=== PATIENT | female | born 1960 | race Caucasian/White ===

== ENCOUNTER 2019-03-15 11:54 | Outpatient (CLI) | payer MEDICARE, SELFPAY ==
--- NOTE | 2019-03-18 13:08 | WPDSIXMINUTE ---
Six Minute Walk Six Minute Walk: The patients O2 sats started at 95% on RA and dropped as low as 90% on RA Total walk distance 274.32 meters conclusion: This patient would not benefit from home oxygen therapy
--- NOTE | 2019-03-21 21:06 | WPDSIXMINUTE ---
Six Minute Walk DATE OF SERVICE: 03/15/2019 REQUESTING PHYSICIAN: Maria Luisa Underwood MD REASON FOR TESTING: Exertional dyspnea SIX MINUTE WALK this test was conducted per ATS guidelines. Initial saturation was 95%, pulse 80. The patient walked
== END 2019-03-15 11:55 | disposition home or self-care (01) ==
PROVIDERS: PCP Family Medicine; Visit Provider Internal Medicine Critical Care Medicine
DX: J44.9 Chronic obstructive pulmonary disease, unspecified (principal)
CPT/HCPCS: 94618

== ENCOUNTER 2020-07-02 09:30 | Outpatient (RCR) | payer MEDICARE, MEDICAID, SELFPAY ==
--- NOTE | 2020-07-02 12:00 | PCCPR ---
PT COMPLETED 20 OF 20 PRE OP LVRS SESSIONS. REPORT SENT TO DR. CH. COORDINATOR HAS SET UP PRE OP/POST REHAB TESTING. PT TO CONTINUE WITH PHASE 3 PULMONARY REHAB UNTIL SURGERY DATE.
== END 2020-07-02 12:21 | disposition home or self-care (01) ==
PROVIDERS: PCP Nurse Practitioner Family; Visit Provider Thoracic Surgery (Cardiothoracic Vascular Surgery)
DX: J44.9 Chronic obstructive pulmonary disease, unspecified (principal)
CPT/HCPCS: G0302

== ENCOUNTER 2020-07-26 07:16 | Outpatient (CLI) | payer MEDICARE, SELFPAY ==
[2020-07-26 10:22] LABS: SARS-CoV-2 RNA PCR Negative (Negative)
== END 2020-07-26 07:17 | disposition home or self-care (01) ==
LOC: CHSLAB 07:18
PROVIDERS: PCP Nurse Practitioner Family; Visit Provider Family Medicine
DX: Z01.818 Encounter for other preprocedural examination (principal); Z20.822 Contact with and (suspected) exposure to COVID-19
CPT/HCPCS: C9803; U0003; U0005

== ENCOUNTER 2020-07-30 09:30 | Outpatient (RCR) | payer SELFPAY | END 2020-08-06 10:52 | disposition home or self-care (01) | LOC: CHSCPRIII 09:30 | PROVIDERS: PCP Family Medicine; Visit Provider Thoracic Surgery (Cardiothoracic Vascular Surgery) | DX: J44.9 Chronic obstructive pulmonary disease, unspecified (principal) | CPT/HCPCS: 99199 ==

== ENCOUNTER 2021-01-17 08:24 | Outpatient (CLI) | payer MEDICARE, SELFPAY ==
--- NOTE | ~2021-01-17 | MM_ITS ---
EXAMINATION: MM screening chris BI w amanuel HISTORY: Screening mammogram TECHNIQUE: Craniocaudal and mediolateral oblique 3-D tomosynthesis images were obtained and synthetic 2-D images were generated. CAD analysis was submitted and interpreted. COMPARISON: 03/16/2019, 08/27/2014, 02/06/2013 bilateral screening mammogram examinations BREAST PARENCHYMAL COMPOSITION: The breasts are almost entirely fatty. FINDINGS: There is no evidence of suspicious mass, calcification, or architectural distortion to sugg est malignancy in either breast. There has been no suspicious interval change. IMPRESSION: 1. No mammographic evidence of malignancy. 2. Recommend routine screening mammography in one year. BI-RADS Category 1: Negative Reviewed, dictated and finalized at location A. 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
== END 2021-01-17 08:25 | disposition home or self-care (01) ==
LOC: ANHIMG 08:26
PROVIDERS: PCP Nurse Practitioner Family; Visit Provider Nurse Practitioner Family
DX: Z12.31 Encounter for screening mammogram for malignant neoplasm of breast (principal)
CPT/HCPCS: 77063; 77067

== ENCOUNTER 2021-03-25 09:45 | Outpatient (CLI) | payer MEDICARE, SELFPAY ==
--- NOTE | ~2021-03-25 | CT_ITS ---
EXAMINATION: CT lung screening EXAM DATE: 03/25/2021 10:04 INDICATION: Z87.891 - Personal history of nicotine dependence. Chest pain, shortness of breath, cough . TECHNIQUE: Spiral low dose CT of the chest without contrast. Axial, coronal and sagittal images were reviewed. The dose-length product (DLP) for this examination was 128.67 mGy-cm. The exposure was t ailored according to patient size (auto mA exposure control), and iterative reconstruction (ASIR) was used as additional dose reduction technique. Comparison is made to prior examination from 07/19/2018. FINDINGS: There is moderate emphysema and hyperinflation. Mild bronchiectasis. There is a 4 mm left lower lobe perihilar pulmonary nodule which was not present in 2019. No other nodules identified. Tr acheobronchial tree is patent. There is no mediastinal, hilar or axillary lymphadenopathy. There are no pleural or pericardial effusions. There is no pneumothorax. Heart normal in size. There is mild coronary arterial calcification, arterial sclerosis. Upper abdomen is unremarkable. There is mild thoracic spondylosis without osteoblastic or osteolytic lesions identified. IMPRESSION: Lung-RADS category 3, probably benign (1-2% chance of malignancy); recommend followup non contrast chest CT or LDCT in 6 months. Reviewed, dictated and finalized at location . ITY PROCESS LEAD IMPRESSION: Lung-RADS category 3, probably benign (1-2% chance of malignancy); recommend followup noncontrast chest CT or LDCT in 6 months.
== END 2021-03-25 09:46 | disposition home or self-care (01) ==
PROVIDERS: PCP Nurse Practitioner Family; Visit Provider Nurse Practitioner Family
DX: Z12.2 Encounter for screening for malignant neoplasm of respiratory organs (principal); Z87.891 Personal history of nicotine dependence
CPT/HCPCS: 71271

== ENCOUNTER 2021-09-22 09:39 | Outpatient (CLI) | payer MEDICARE, SELFPAY ==
--- NOTE | ~2021-09-22 | CT_ITS ---
EXAMINATION:CT diagnostic chest wo con DATE: 09/22/2021 10:04 INDICATION: Solitary pulmonary nodule. TECHNIQUE: Computed tomography (CT) of the chest was performed without intravenous contrast. Automate d exposure control and iterative reconstruction technique were employed. The dose-length product (DLP ) was 100.40 mGy-cm. COMPARISON: Chest CT 03/25/2021 FINDINGS: There is severe emphysema. There is mild bronchiectasis in the inferior lungs. There is a 2 mm nodule in left lower lobe with interval improvement. There is mild atelectasis bilaterally. No pl eural effusion. The heart size is normal. No pericardial effusion. There are coronary artery calcific ations. There is mild thoracic spondylosis. IMPRESSION: 1. Lung-RADS category 2: Benign appearance or behavior. Continue annual screening with noncontrast lo w-dose chest CT in 12 months. Reviewed, dictated and finalized at location A. IMPRESSION: 1. Lung-RADS category 2: Benign appearance or behavior. Continue annual screeni ng with noncontrast low-dose chest CT in 12 months.
== END 2021-09-22 09:40 | disposition home or self-care (01) ==
PROVIDERS: PCP Nurse Practitioner Family; Visit Provider Nurse Practitioner Family
DX: R91.1 Solitary pulmonary nodule (principal)
CPT/HCPCS: 71250

== ENCOUNTER 2022-07-31 14:40 | Emergency (ER) | payer MEDICARE, SELFPAY ==
[2022-07-31] VITALS (12 sets, daily range): BP systolic 105–125; BP diastolic 58–96; PULSE 82–116; RESP 16–23; TEMP 37.3–38.3; O2SAT 92–97
--- NOTE | ~2022-07-31 | XR_ITS ---
XR chest 1V portable DATE: 07/31/2022 15:19 INDICATION: Cough, shortness of breath, fever, right-sided chest pain TECHNIQUE: Portable AP chest, single view, on 08/10/2022 at 1516 hours COMPARISON: 07/19/2018 CT chest FINDINGS: Chronic large bulla in the anterior basilar left lower lobe. Moderate bilateral hyperinflat ion consistent with obstructive airways disease. No pulmonary infiltrate or consolidation, pleural effusion or pulmonary vascular congestion or pneumo thorax. Normal heart size. No hilar or mediastinal enlargement. Osteopenia. IMPRESSION: Emphysema Reviewed, dictated and finalized at location [] IMPRESSION: Emphysema
[2022-07-31 15:17] LABS: Basophils Absolute Auto 0.1 K/mm3 (0.0-0.1); Basophils Percent Auto 0.3 % (0.2-1.2); Eosinophils Absolute Auto 0.1 K/mm3 (0-0.3); Eosinophils Percent Auto 0.6 % (0-4.4); Hematocrit 45.6 % (37.0-47.0); Hemoglobin 14.9 g/dL (12.0-15.0); Immature Granulocyte Percent A 0.6 % (0-0.5); Lymphocytes Absolute Auto 1.05 K/mm3 (0.9-3.2); Lymphocytes Percent Auto 6.7 % (18.3-44.2); Mean Corpuscular HGB Conc 32.7 g/dl (32-36); Mean Corpuscular Hemoglobin 29.2 pg (26-34); Mean Corpuscular Volume 89.4 fl (80-100); Monocytes Absolute Auto 1.4 K/mm3 (0.1-0.6); Monocytes Percent Auto 8.6 % (2.6-8.5); Neutrophils Absolute Auto 13.1 K/mm3 (1.3-6.7); Neutrophils Percent Auto 83.2 % (45.5-73.1); Platelet Count Result 298 k/mm3 (150-375); Red Cell Distribution Width 13.5 % (11.5-14.5); White Blood Count 15.7 K/mm3 (4.5-10.0)
[2022-07-31] MEDS: IPRATROPIUM BR 0.02% INH SOLN 0.5 MG/2.5 ML VIAL INHALATION (15:24)
[2022-07-31] MEDS: ALBUTEROL SULFATE NEB 2.5 MG/3 ML INH INHALATION (15:24)
[2022-07-31 15:27] LABS: Alanine Aminotransferase 13 U/L (6-35); Albumin Level 4.6 g/dL (3.5-5.1); Alkaline Phosphatase 82 U/L (38-126); Anion Gap 7 mmol/L (8-16); Aspartate Amino Transferase 26 U/L (14-36); Bilirubin,Total 0.6 mg/dL (0.2-1.3); Blood Urea Nitrogen 26 mg/dL (7-17); Carbon Dioxide 26 mmol/L (22-30); Chloride 101 mmol/L (98-107); Estimated CRCL calculation 95 ml/min; Estimated Glomerular Filt Rate > 60; Glucose 102 mg/dL (65-110); Potassium 3.8 mmol/L (3.4-5.0); Sodium 134 mmol/L (137-145)
[2022-07-31 15:51] LABS: SARS-CoV-2 RNA PCR Negative (Negative)
--- NOTE | 2022-07-31 15:54 | ECG_ITS ---
Measurements Intervals [place] Rate: 114 P: 91 MS: 145 QRS: 43 QRSD: 82 T: 61 QT: 301 QTc: 415 Interpretive Statements SINUS TACHYCARDIA LOW QRS VOLTAGE IN PRECORDIAL LEADS [QRS DEFLECTION < 1.0 mV IN CHEST LEADS] POOR R-WAVE PROGRESSION ABNORMAL RHYTHM ECG COMPARED TO ECG 07/19/2018 05:10:03 SINUS TACHYCARDIA NOW PRESENT Electronically Signed On 08-01-2022 8:55:33 CDT by Katerin Felix M.D.
--- NOTE | 2022-07-31 16:00 | ED.SOB ---
HPI - SOB/Dyspnea General Chief Complaint: Shortness of Breath/Dyspnea Stated Complaint: fever, int. chest pain Time Seen by Provider: 07/31/22 14:45 History of Present Illness HPI Narrative: Patient is a 62-year-old female who presents ER with reports of shortness of breath. Increased shortness of breath over the last 2 days. Associated with fever and some chest pain with breathing. No known sick contacts. Related Data Home Medications Medication Instructions Recorded Confirmed amlodipine 10 mg tablet 10 mg PO DAILY 01/04/19 02/05/22 fluticasone propionate 50 1 spray intranasal DAILY 01/04/19 02/05/22 mcg/actuation nasal spray,suspension (Flonase Allergy Relief) Allergies Allergy/AdvReac Type Severity Reaction Status Date / Time cephalexin AdvReac Intermediate Cough Verified 07/31/22 15:05 Review of Systems Review of Systems: All systems reviewed & are unremarkable except as noted in HPI and below Constitutional: Constitutional: Denies chills, Reports fatigue and Reports fever(s) ENT: Denies nasal congestion and Denies sore throat Cardiovascular: Cardiovascular: Reports chest pain, Denies rapid heart rate and Denies radiating jaw, neck or arm pain Respiratory: Respiratory: Reports cough and Reports dyspnea Gastrointestinal: Gastrointestinal: Denies abdominal pain, Denies nausea and Denies vomiting PMFSH Past Medical History Medical History Bronchiectasis without complication Chronic obstructive pulmonary disease ANGEL (obstructive sleep apnea) Family History Family History Mother Hypertension Other Diabetes mellitus Social History Social History Smoking packs per day: 0.5 Smoking cigarettes per day: 10.0 Years smoked: 40 Smoking pack-years: 20.00 Smoking status: Former smoker Second hand tobacco smoke exposure: Yes Smoking end date: 02/22/15 Additional smoking assessment comments: started smoking at age 14 Alcohol intake: never Lack of Transportation: No Lack of Food: Sometimes True Current Housing: I Have Housing Concerned About Future Housing: No Difficulty Paying Gas/Electric Bills: No Difficulty Paying for Meds: Decline to Answer Currently Unemployed: No Education: High School Diploma/GED Difficulty w/ Childcare or Family Care: No Exam Narrative: GENERAL: Well-appearing, well-nourished, and in no acute distress. HEAD: Normocephalic, atraumatic. EYES: PERRL and EOMI. ENT: Mucous membranes moist. CHEST: Clear to auscultation. No respiratory distress. HEART: Tachycardic and regular. Normal peripheral pulses. ABDOMEN: Soft, nontender, nondistended. EXTREMITIES: Normal range of motion. No edema. SKIN: Warm, dry, no rash. NEURO: Alert and oriented x3. PSYCH: Normal mood and affect. Course Course Emergency Course: Patient informed of results. No hypoxia while walking. Discharged with antibiotics to cover for pneumonia and UTI. Vital Signs Vital signs: Vital Signs Temperature 99.2 F 07/31/22 14:41 Pulse Rate 115 H 07/31/22 14:41 Respiratory Rate 23 H 07/31/22 14:41 Blood Pressure 115/96 H 07/31/22 14:41 Pulse Oximetry 93 07/31/22 14:41 Oxygen Delivery Room Air 07/31/22 14:41 Temperature 100.9 F H 07/31/22 14:54 Pulse Rate 82 07/31/22 17:36 Respiratory Rate 22 H 07/31/22 17:36 Blood Pressure 125/80 07/31/22 17:36 Pulse Oximetry 94 07/31/22 17:36 Oxygen Delivery Room Air 07/31/22 14:51 MDM - SOB/Dyspnea Lab Data 07/31/22 15:07 07/31/22 15:07 Labs: Lab Results 07/31/22 07/31/22 07/31/22 Range/Units 15:07 15:08 15:10 WBC 15.7 H (4.5-10.0) K/mm3 RBC 5.10 (4.2-5.4) M/mm3 Hgb 14.9 (12.0-15.0) g/dL Hct 45.6 (37.0-47.0) % MCV 89.4 (80-100) fl MCH 29.2 (26-34) pg MCHC
--- NOTE | 2022-07-31 16:12 | PC.NURSE ---
Pt ambulated approx 50 ft to bathroom and back to pt room, pt maintained spo2 of 92-93%, pt with labored breathing during and after ambulation
[2022-07-31 16:20] LABS: Appearance Urine Cloudy (Clear); Bacteria Urine None Seen /hpf; Bilirubin Urine Negative (Negative); Blood Urine 3+ (Negative); Color Urine Yellow (Yellow); Glucose Urine UA Negative (Negative); Ketones Urine 2+ mg/dL (Negative); Leukocyte Esterase Ur 2+ LEU/UL (Negative); Nitrate Urine Negative (Negative); Non Pathogenic Casts 0-2; Protein Urine 1+ mg/dL (Negative); RBC Urine 21-50 /hpf (0-2); Specific Grav Ur 1.016 (1.001-1.035); Squamous Epithelial Cell Urine Few /hpf (Few); Urobilinogen Urine 0.2 mg/dL (<2.0); WBC Urine >100 /hpf; pH Urine 5.5 (5.0-9.0)
[2022-07-31 16:30] LABS: Add Urine Microscopic? YES
== END 2022-07-31 17:42 | disposition home or self-care (01) ==
PROVIDERS: Emergency Provider Emergency Medicine; PCP Nurse Practitioner Family
DX: J18.9 Pneumonia, unspecified organism (principal); R00.0 Tachycardia, unspecified; Z20.822 Contact with and (suspected) exposure to COVID-19; J44.9 Chronic obstructive pulmonary disease, unspecified; G47.30 Sleep apnea, unspecified
CPT/HCPCS: 36415; 71045; 80053; 81001; 83605; 85025; 87040; 87077; 87086; 87186; 87635; 93005; 94640; 99283

== ENCOUNTER 2022-09-24 09:56 | Outpatient (CLI) | payer MEDICARE, SELFPAY ==
--- NOTE | ~2022-09-24 | CT_ITS ---
CT Scan of the Chest without Contrast: Clinical Indication: Lung cancer screening, personal history of nicotine dependence Technique: Contiguous sections were acquired throughout the chest without intravenous contrast. Dose reduction technique was used on this scan by utilizing automated exposure control and iterative recon struction technique. The dose-length product (DLP) was 129.99 mGy-cm. COMPARISON: 09/22/2021, 03/25/2021 Findings: There is no evidence of any significant mediastinal, hilar or axillary lymphadenopathy. The mediastin al soft tissues appear normal. There is no evidence of pleural or pericardial effusion. Several small bibasilar pulmonary nodules are noted, similar to prior exam. Moderate to severe emphys kita present. Images through the upper abdomen reveal no abnormalities. Impression: Lung RADS 2: Benign appearance. 12 month follow-up screening CT advised. Moderate to severe emphysema. Reviewed, dictated and finalized at [facility]. Impression: Lung RADS 2: Benign appearance. 12 month follow-up screening CT advised. Moderate to severe emphysema.
== END 2022-09-24 09:57 | disposition home or self-care (01) ==
PROVIDERS: PCP Nurse Practitioner Family; Visit Provider Nurse Practitioner Family
DX: Z12.2 Encounter for screening for malignant neoplasm of respiratory organs (principal); Z87.891 Personal history of nicotine dependence; J43.9 Emphysema, unspecified
CPT/HCPCS: 71271

== ENCOUNTER 2023-01-06 12:39 | Emergency (ER) | payer MEDICARE, SELFPAY ==
[2023-01-06] VITALS (8 sets, daily range): BP systolic 98–165; BP diastolic 48–103; PULSE 76–106; RESP 17–28; TEMP 36.5; O2SAT 96–100
--- NOTE | ~2023-01-06 | XR_ITS ---
XR chest 2V DATE: 01/06/2023 14:05 INDICATION: Dyspnea. COPD. TECHNIQUE: PA and lateral views COMPARISON: 8 5 04/[address]22 CT lung screening 08/10/2022 portable AP chest FINDINGS: Bilateral pulmonary hyperinflation and relative flattening the diaphragm, consistent with C OPD. No pulmonary infiltrate or consolidation, pleural effusion or pulmonary vascular congestion or pneumo thorax is detected. Normal heart size. No hilar or mediastinal enlargement. Diffuse osteopenia. IMPRESSION: COPD Reviewed, dictated and finalized at location B. 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
--- NOTE | 2023-01-06 12:44 | ECG_ITS ---
Measurements Intervals [place] Rate: 54 P: 85 CT: 165 QRS: 66 QRSD: 82 T: 75 QT: 335 QTc: 318 Interpretive Statements SINUS BRADYCARDIA BORDERLINE T WAVE ABNORMALITY- HIGH LATERAL LEADS BASELINE ARTIFACT- I, II, III, AVL, AVF, V4-V6 BORDERLINE ECG COMPARED TO ECG 07/31/2022 14:48:10 SINUS BRADYCARDIA NOW PRESENT Electronically Signed On 01-06-2023 13:17:25 VISCOSE DEPARTMENT WORKER by Raoul Szymanski D.O.
[2023-01-06 13:05] LABS: Basophils Absolute Auto 0.1 K/mm3 (0.0-0.1); Basophils Percent Auto 0.6 % (0.2-1.2); Eosinophils Absolute Auto 0.3 K/mm3 (0-0.3); Eosinophils Percent Auto 3.9 % (0-4.4); Hematocrit 45.8 % (37.0-47.0); Hemoglobin 14.5 g/dL (12.0-15.0); Immature Granulocyte Absolute 0.07 K/mm3 (0.00-0.031); Immature Granulocyte Percent A 0.8 % (0-0.5); Lymphocytes Absolute Auto 1.56 K/mm3 (0.9-3.2); Lymphocytes Percent Auto 17.9 % (18.3-44.2); Mean Corpuscular HGB Conc 31.7 g/dl (32-36); Mean Corpuscular Hemoglobin 28.9 pg (26-34); Mean Corpuscular Volume 91.4 fl (80-100); Mean Platelet Volume 10.7 fl (7.4-10.4); Monocytes Absolute Auto 0.6 K/mm3 (0.1-0.6); Monocytes Percent Auto 7.1 % (2.6-8.5); Neutrophils Absolute Auto 6.1 K/mm3 (1.3-6.7); Neutrophils Percent Auto 69.7 % (45.5-73.1); Nucleated Red Blood Cells Perc 0.3 % (0.0-0.2); Platelet Count Result 330 k/mm3 (150-375); Red Blood Count 5.01 M/mm3 (4.2-5.4); Red Cell Distribution Width 13.6 % (11.5-14.5); White Blood Count 8.7 K/mm3 (4.5-10.0)
[2023-01-06 13:17] LABS: Alanine Aminotransferase 11 U/L (6-35); Albumin Level 4.4 g/dL (3.5-5.1); Alkaline Phosphatase 86 U/L (38-126); Anion Gap 11 mmol/L (8-16); Aspartate Amino Transferase 21 U/L (14-36); Bilirubin,Total 0.5 mg/dL (0.2-1.3); Blood Urea Nitrogen 26 mg/dL (7-17); Calcium 9.1 mg/dL (8.4-10.2); Carbon Dioxide 28 mmol/L (22-30); Chloride 102 mmol/L (98-107); Estimated CRCL calculation 81 ml/min; Estimated Glomerular Filt Rate > 60; Glucose 103 mg/dL (65-110); Potassium 3.9 mmol/L (3.4-5.0); Sodium 141 mmol/L (137-145)
[2023-01-06 13:27] LABS: Troponin I < 0.012 ng/mL (0.000-0.034)
[2023-01-06 13:42] LABS: Influenza A QL RT-PCR Negative (Negative); Influenza B QL RT-PCR Negative (Negative); SARS-CoV-2 RNA PCR Negative (Negative)
--- NOTE | 2023-01-06 15:44 | ED.SOB ---
HPI - SOB/Dyspnea General Chief Complaint: Shortness of Breath/Dyspnea Stated Complaint: sob Time Seen by Provider: 01/06/23 15:31 History of Present Illness HPI Narrative: Patient is a 8-year-old female who presents to the emergency department at that afternoon complaining of shortness of breath. Patient does have a history of COPD and does use oxygen at home 2 L around the clock. Patient states that she recently finished a Z-Manuel due to a sinus infection. She denies any hypoxia and has not needed to increase her home oxygen from 2 L. Patient denies any chest pain, nausea, vomiting, abdominal pain, dysuria, hematuria, constipation, diarrhea, melena, hematochezia, fevers or chills. He also denies any headaches, dizziness, lightheadedness, blurry visions, dizziness, focal weakness, numbness and or tingling. There are no other modifying, alleviating, or precipitating factors at this time. Related Data Home Medications Medication Instructions Recorded Confirmed amlodipine 10 mg tablet 10 mg PO DAILY 01/04/19 08/10/22 fluticasone propionate 50 1 spray intranasal DAILY 01/04/19 08/10/22 mcg/actuation nasal spray,suspension (Flonase Allergy Relief) Allergies Allergy/AdvReac Type Severity Reaction Status Date / Time cephalexin AdvReac Intermediate Cough Verified 01/06/23 15:44 Review of Systems Review of Systems: All systems are reviewed and are negative unless stated otherwise in the HPI. [facility] Past Medical History Medical History Bronchiectasis without complication Chronic obstructive pulmonary disease ANGEL (obstructive sleep apnea) Family History Family History Mother Hypertension Other Diabetes mellitus Social History Social History Smoking packs per day: 0.5 Smoking cigarettes per day: 10.0 Years smoked: 40 Smoking pack-years: 20.00 Smoking status: Former smoker Second hand tobacco smoke exposure: Yes Smoking end date: 02/22/15 Additional smoking assessment comments: started smoking at age 14 Alcohol intake: never Lack of Transportation: No Lack of Food: Sometimes True Current Housing: I Have Housing Concerned About Future Housing: No Difficulty Paying Gas/Electric Bills: No Difficulty Paying for Meds: Decline to Answer Currently Unemployed: No Education: High School Diploma/GED Difficulty w/ Childcare or Family Care: No Exam Narrative: General: Alert, awake, afebrile, in no acute distress. HEENT: PERRL, no rhinorrhea, no post nasal drip, oropharynx clear. Neck: Trachea midline, no JVD, no lymphadenopathy. Cardiovascular: Regular rate and rhythm, no murmurs, rubs or gallops, no peripheral edema. Respiratory: Bilateral wheezing worse on the right lung prado, no tachypnea, no rhonchi, no rubs, no respiratory distress. Abdomen: Soft, nontender, nondistended, no rebound, no guarding, no peritoneal signs. Musculoskeletal: No joint swelling or deformity, normal muscle tone. Skin: No rashes or petechia, no signs of infection. Psychiatric: Alert and oriented, normal behavior and judgment for situation. Neurological: Alert and oriented to person, place, and time. Follows all commands. No focal deficits, speech is clear and fluent. Course Vital Signs Vital signs: Vital Signs Temperature 97.7 F 01/06/23 12:41 Pulse Rate 99 01/06/23 12:41 Respiratory Rate 22 H 01/06/23 12:41 Blood Pressure 98/48 L 01/06/23 12:41 Pulse Oximetry 96 01/06/23 12:41 Oxygen Delivery Nasal Cannula 01/06/23 12:41 Oxygen Flow Rate 2 01/06/23 12:41 Temperature 97.7 F 01/06/23 12:41 Pulse Rate 82 01/06/23 16:20 Respiratory Rate 17 01/06/23 16:20 Blood Pressure 154/100 H 01/06/23 16:20 Pulse Oximetry 97 01/06/23 16:20 Oxygen Delivery Nasal Cannula 01/06/23 15:42 Oxygen Fl
[2023-01-06] MEDS: methylPREDNISolone SOD SUCC 125 MG VIAL IV PUSH (16:47)
[2023-01-06] MEDS: IPRATROPIUM BR 0.02% INH SOLN 0.5 MG/2.5 ML VIAL 1 MG INHALATION (16:52)
[2023-01-06] MEDS: ALBUTEROL SULFATE NEB 2.5 MG/3 ML INH 10 MG INHALATION (16:52)
== END 2023-01-06 18:35 | disposition home or self-care (01) ==
LOC: ANHED 15:58
PROVIDERS: Emergency Medicine; Emergency Provider Emergency Medicine; PCP Family Medicine
DX: J44.9 Chronic obstructive pulmonary disease, unspecified (principal); Z87.891 Personal history of nicotine dependence; G47.30 Sleep apnea, unspecified
CPT/HCPCS: 36415; 71046; 80053; 84484; 85025; 87636; 93005; 94640; 96374; 99284; J2930

== ENCOUNTER 2024-03-13 13:54 | Outpatient (CLI) | payer MEDICARE, SELFPAY ==
--- NOTE | ~2024-03-13 | CT_ITS ---
EXAMINATION: CT lung screening DATE: 03/13/2024 14:16 INDICATION: Z87.891 - Personal history of nicotine dependence TECHNIQUE: Computed tomography (CT) of the chest was performed without intravenous contrast. Addition al 3D reconstructions utilizing coronal maximum intensity projection (MIP) were performed. Automated exposure control and iterative reconstruction technique were employed. The dose-length product was 11 4.75 mGy-cm. COMPARISON: 09/24/2022 FINDINGS: Moderate emphysema. Curvilinear band of chronic discoid atelectasis/scarring in the anterobasilar seg ment of the left lower lobe. No significant interval change in a few small solid and some solid nodul es in the bilateral lower lobes the largest measuring 5 mm in the left lower lobe. No new or enlargin g pulmonary nodules. No pneumonia, pulmonary edema or pleural effusion. Heart size is normal. No julian cardial effusion. Thoracic aorta is normal in caliber. No pathologically enlarged thoracic lymphadeno nelsy. And visualized upper abdomen is unremarkable. Mild thoracic spondylosis. IMPRESSION: 1. Lung-RADS category 2: Benign appearance or behavior. Continue annual screening with noncontrast lo w-dose chest CT in 12 months. Reviewed, dictated and finalized at location A. T BOSS IMPRESSION: 1. Lung-RADS category 2: Benign appearance or behavior. Continue annual screeni ng with noncontrast low-dose chest CT in 12 months.
--- OUTSIDE RECORDS SUMMARY | 2024-03-16 13:52 | XMS_ITS | Clinical Summary ---
Author Organization [facility] [address] Address [address] [place] [address] Care Team Providers Care Reclamation Engineer Name Role Phone Aletha Hinojosa MD Unavailable Darwin Lebron RN Unavailable Jerome Kapadia NP Unavailable Radha Boston MD Unavailable Markie Palmer DO Unavailable [phone] Margarito Fong NP Primary Care Provider [phone] Allergies No known active allergies Medications SYMBICORT 160-4.5 mcg/actuation inhaler INL 2 PFS PO BID 0 9 Active busPIRone (BUSPAR) 5 mg tablet 1 tablet as needed 0 9 Active ipratropium-alb uterol (DUO-NEB) 0.5-2.5 mg/3 mL nebulizer solution VVN QID PRN 2 9 Active budesonide (PULMICORT) 0.5 mg/2 mL nebulizer solution Take 2 mL (0.5 mg total) by nebulization 2 (two) times a day Rinse mouth with water after use. Do not swallow. 360 mL 3 9 Active Additional Information Patient not taking.Reported on 08/31/2023 fluticasone propionate (FLONASE) 50 mcg/actuation nasal spray SHAKE LQ AND U 1 SPR IEN QD 4 9 Active ipratropium (ATROVENT) 0.02 % nebulizer solution VVN Q 8 H 11 9 Active VENTOLIN HFA 90 mcg/actuation inhaler INHALE 2 PUFFS BY MOUTH EVERY 6 HOURS NEEDED FOR WHEEZING 18 g 9 Active amLODIPine (NORVASC) 10 mg tablet 9 Active Active Problems Problem Noted Date Diagnosed Date Other chest pain 08/31/2023 Pre-transplant evaluation for lung transplant Overview (12/11/2020): Added automatically from request for surgery [id number] COPD (chronic obstructive pulmonary disease) 07/2018 HTN (hypertension) 03/30/2018 Immunizations Name Administration Dates Next Due Influenza, Split 11/26/2009 Surgical History Surgery Date Site/Laterality Comments OTHER SURGICAL HISTORY 02/22/2002 - 02/21/2003 R oophorectomy HERNIA REPAIR 02/22/2009 - 02/21/2010 Medical History Medical History Date Comments Hypertension COPD (chronic obstructive pulmonary disease) (HC C) Femoral hernia of right side Debility Hepatitis C Family History Medical History Relation Name Comments Car Accident Brother 3 accident; Cause of : accident Other Brother 4 Alive and well; Coronary artery disease Father Yenifer nary artery disease; Hypertension Mother Hypertension; Other Sister 2 AIDS; Cause of : AIDS Relation Name Status Comments Brother 1 Brother 2 Alive Brother 3 Brother 4 Father Mother Sister 1 Sister 2 Social History Tobacco Use Types Packs/Day Years Used Date Smoking Tobacco: Former Cigarettes 0.5 38 0 06/23/1978 - 06/23/2016 Smokeless Tobacco: Never Alcohol Use Standard Drinks/Week Comments No 0 (1 standard drink = 0.6 oz pur e alcohol) Overall Financial Resource Strain (CARDIA) Answe r Date Recorded How hard is it for you to pa y for the very basics like food, housing, medical care, and heating? Somewhat hard 04/28/2021 PHQ-2 Answer Date Recorded PHQ-2 Total Score (If total score is 3 or more points, staff should administer the PHQ-9) 1 04/28/2021 Hunger Vital Sign Answer Date Recorded Within the past 12 months, y ou worried that your food would run out before you got the money to buy more. Sometimes true Within the past 12 months, t he food you bought just didn't last and you didn't have money to get more. Patient declined 08/2021 PRAPARE - Transportation Answer Date Re corded In the past 12 months, has l ack of transportation kept you from medical appointments or from getting medications? No 08/2021 In the past 12 months, has l ack of transportation kept you from meetings, work, or from getting things needed for daily living? No 04/28/2021 Housing Stability Vital Sign Answer Marcelo e Recorded In the last 12 months, was t here a time when you were not able to pay the mortgage or rent on time? Patient refused 04/29/19 22 In the last 12 months, how many places have you lived? 1 04/28/2021 In the last 12 months, was t here a time when you did not have a steady place to sleep or slept in a half-way (including now)? No 04/28/2021 Comments Unknown Sex and Gender Information Value Date Recorded Sex Assigned at Not on file Legal Sex Female 9:53 AM ELECTRICIAN RECTIFIER MAINTENANCE Gender Identity Not on file Sexual Orientation Not on file Obstetrics History Last Filed Vital Signs Vital Sign Reading Time Taken Comments Blood Pressure 134/90 08/31/2023 3:06 PM CDT Pulse 90 08/31/2023 3:06 PM CDT Temperature 36.3 ??C (97.4 ??F) 04/29/2021 1 1:56 AM ELECTRICIAN RECTIFIER MAINTENANCE Respiratory Rate 18 04/29/2021 11:5 6 AM ELECTRICIAN RECTIFIER MAINTENANCE Oxygen Saturation 91% 08/31/2023 3:06 PM CDT Inhaled Oxygen Concentration - - Weight 88.4 kg (194 lb 12.8 oz) 08/31/2023 3:06 PM CDT Height 168.9 cm (5' 6.5 ) 08/31/2023 3:06 PM CDT Body Mass Index 30.97 08/31/2023 3:06 PM CDT Plan of Treatment Health Maintenance Due Date Last Done Comments Breast Cancer Screening-Mammogram 1962 Cervical Cancer Screening 1962 Colon Cancer Screening-Colonoscopy 1962 Regular Well Visit/Exam 18-64 1980 Zoster Vaccine (1 of 2) 2012 Depression Screening 04/28/2022 04/28/2021, 04/29/19 Covid-19 Vaccine (4 - 2023-2 5 season) 2023 01/23/2021, 05/17/2020, 04/19/2020 Influenza Vaccine (#1) 2023 , 11/14/2020, 10/17/2019, Additional history exists DTaP/Tdap/Td Vaccine (2 - Td or Tdap) 12/09/2026 12/09/2016 Pneumococcal vaccine <65 (3 of 3 - PPSV23 or PCV20) 07/30/2027 12/11/2020, 11/24/2018 Hepatitis B Screening Completed 04/28/2021 Hepatitis C Screening Completed 04/28/2021 , 06/23/2018, 06/09/2018, Additional history exists Procedures Procedure Name Priority Date/Time Associated Diagnosis Comments HEPATITIS PANEL, ACUTE Routine 04/28/2021 8:56 AM ELECTRICIAN RECTIFIER MAINTENANCE Pre-transplant evaluation for lung transplant Centrilobular emphysema (CMS/HCC) (HCC) from Last 3 Months or Most Recently Relevant to Health Maintenance Results * (ABNORMAL) Hepatitis panel, acute (04/28/2021 8:56 AM ELECTRICIAN RECTIFIER MAINTENANCE) Hep A IgM Nonreactive Nonreactive [facility] Comment: Interpretive Data: If Hep A IgM Ab is reported as Equivocal, a new sample should be drawn in two weeks for testing. Current interpretive data was last revised on 19. Hep B core IgM Nonreactive Nonreactive [facility] Comment: Interpretive Data If HepB Core IgM Ab is reported as Equivocal, a new sample should be drawn in two weeks for testing. Current interpretive data was last revised on 19. Hep C Ab Reactive(A) Nonreactive [facility] Comment:Positive for HCV ant ibodies.?? This may represent current or past HCV infection. Supplemental molecular testing will be automatically performed to determine ??current infection status in accordance with current CDC screening recommendations. HepBsAg Nonreactive Nonreactive [facility] Blood 04/28/2021 8:56 AM ELECTRICIAN RECTIFIER MAINTENANCE 04/28/2021 9:17 AM ELECTRICIAN RECTIFIER MAINTENANCE us Domenico Hannah MD LAB MICROBIOLOGY - GENE RAL ORDERABLES Final Result [facility] Department [place] [address] from Last 3 Months or Most Recently Relevant to Health Maintenance Insurance IDPA BLUE ANTHEM MEDICARE PREFERRED HMO PPO [facility] BCBS MEDICARE [place] HUMANA MEDICARE HMO Care Teams Reclamation Engineer Relationship Specialty Start Date End Date Margarito Fong NP [address] [place] [address] PCP - General Internal Medicine 10/22/22 Aletha Hinojosa MD [address] [place] [address] [address] [place] [address] 06/03/17 Darwin Lebron, RN [address] [facility] [address] [place] [address] Lead Die Molder 12/05/20 Jerome Kapadia NP [address] [place] [address] Nurse Practitioner 04/28/21 Radha Boston MD [address] [facility] [address] [place] [address] Consulting Physician Cardiology 04/28/21 Markie Palmer DO [address] [facility] [address] [place] [address] Referring Physician Surgery 04/28/21
--- OUTSIDE RECORDS SUMMARY | 2024-03-16 13:52 | XMS_ITS | Referral Summary ---
Author Organization [facility] [address] Address [address] [place] [address] Care Team Providers Care Hvac Designer Name Role Phone Aletha Hinojosa MD Unavailable Darwin Lebron RN Unavailable Jerome Kapadia NP Unavailable Radha oBston MD Unavailable Markie Palmer DO Unavailable [phone] Margarito Fong NP Primary Care Provider [phone] Allergies No known active allergies Medications SYMBICORT [...] (12/11/2020): Added automatically from request for surgery [id number] COPD (chronic obstructive pulmonary disease) 07/2018 HTN (hypertension) 03/30/2018 Immunizations Name Administration Dates Next Due Influenza, Split 11/26/2009 Social History Tobacco Use Types Packs/Day Years [...] place to sleep or slept in a assisted (including now)? No 04/28/2021 Comments Unknown Sex and Gender Information Value Date Recorded Sex Assigned at Not on file Legal Sex Female 9:53 AM BROADCAST SUPERVISOR Gender Identity Not on file Sexual Orientation Not on file Last Filed Vital Signs Vital Sign Reading Time Taken Comments Blood Pressure 134/90 08/31/2023 3:06 PM CDT Pulse 90 08/31/2023 3:06 PM CDT Temperature 36.3 ??C (97.4 ??F) 04/29/2021 1 1:56 AM BROADCAST SUPERVISOR Respiratory Rate 18 04/29/2021 11:5 6 AM BROADCAST SUPERVISOR Oxygen Saturation 91% 08/31/2023 3:06 PM CDT Inhaled Oxygen Concentration - - Weight 88.4 kg (194 lb 12.8 oz) 08/31/2023 3:06 PM CDT Height 168.9 cm (5' 6.5 ) 08/31/2023 3:06 PM CDT Body Mass Index 30.97 08/31/2023 3:06 PM CDT Plan of Treatment Not on file Procedures Procedure Name Priority Date/Time Associated Diagnosis Comments HEPATITIS PANEL, ACUTE Routine 04/28/2021 8:56 AM BROADCAST SUPERVISOR Pre-transplant evaluation for lung transplant Centrilobular emphysema (CMS/HCC) (HCC) from Last 3 Months or Most Recently Relevant to Health Maintenance Results * (ABNORMAL) Hepatitis panel, acute (04/28/2021 8:56 AM BROADCAST SUPERVISOR) Hep A IgM Nonreactive Nonreactive [facility] Comment: Interpretive Data: If Hep A IgM Ab is reported as Equivocal, a new sample should be drawn in two weeks for testing. Current interpretive data was last revised on 19. Hep B core IgM Nonreactive Nonreactive [facility] Comment: Interpretive Data If HepB Core IgM Ab is reported as Equivocal, a new sample should be drawn in two weeks for testing. Current interpretive data was last revised on 19. Hep C Ab Reactive(A) Nonreactive [facility] Comment:Positive for HCV ant ibodies.?? This may represent current or past HCV infection. Supplemental molecular testing will be automatically performed to determine ??current infection status in accordance with current CDC screening recommendations. HepBsAg Nonreactive Nonreactive [facility] Blood 04/28/2021 8:56 AM BROADCAST SUPERVISOR 04/28/2021 9:17 AM BROADCAST SUPERVISOR us Domenico Hannah MD LAB MICROBIOLOGY - GENE RAL ORDERABLES Final Result [facility] Department [place] [address] from Last 3 Months or Most Recently Relevant to Health Maintenance Insurance IDPA BLUE ANTHEM MEDICARE PREFERRED HMO PPO [facility] BCBS MEDICARE [place] HUMANA MEDICARE HMO Care Teams Hvac Designer Relationship Specialty Start Date End Date Margarito Fong, HOISTING ENGINEER [address] [facility] [address] [facility] [address] [place] [address] PCP - General Internal Medicine 10/22/22 Aletha Hinojosa MD [address] [facility] [address], [place] [address] 06/03/17 Darwin Lebron, RN [address] [facility] [address] [place] [address] Supervisor Dimension Warehouse 12/05/20 Jerome Kapadia NP [address] [facility] [address] [facility] [address] [place] [address] Nurse Practitioner 04/28/21 Radha Boston MD [address] [facility] [address] [address] Consulting Physician Cardiology 04/28/21 Markie Palmer DO [address] [facility] [address] [facility] [address] [place] [address] Referring Physician Surgery 04/28/21
--- OUTSIDE RECORDS SUMMARY | 2024-03-16 13:52 | XMS_ITS | Patient Health Summary ---
Author Organization [facility] Address [address] [facility] [place] [address] Care Team Providers Care Glass Technician/Installer Name Role Phone Margarito Fong APRN-JOY OPERATOR HELPER Primary Care Provider Note from [facility] [place],non-owned Affiliates and Associated Physician Practices is amultiple site organization consisting of ambulatory clinics and hospital sitesin [place], [place], [place] and [place]. This disclosure is being madepursuant to the Care Everywhere program and may not contain all information available regarding this patient. Last updated 17.[facility] Social History Tobacco Use Types Packs/Day Years Used Date Smoking Tobacco: Never Assessed Sex and Gender Information Value Date Recorded Sex Assigned at Not on file Gender Identity Not on file Sexual Orientation Not on file Last Filed Vital Signs Vital Sign Reading Time Taken Comments Blood Pressure 136/88 07/17/2016 3:40 AM CDT Pulse 73 07/17/2016 3:40 AM CDT Temperature 36.8 ??C (98.3 ??F) 07/16/2016 10:50 PM C DT Respiratory Rate 19 07/17/2016 2:50 AM CDT Oxygen Saturation 97% 07/17/2016 3:40 AM CDT Inhaled Oxygen Concentration - - Weight 77.1 kg (170 lb) 07/16/2016 10:50 PM CDT Height 167.6 cm (5' 6 ) 07/16/2016 10:50 PM CDT Body Mass Index 27.44 07/16/2016 10:50 PM CDT Procedures * XR CHEST 2VW(Performed 07/17/2016) * XR THORACIC SPINE 2VW(Performed 07/17/2016) * XR LUMBAR SPINE 2 OR 3VW(Performed 07/17/2016) Results * XR CHEST 2VW (07/17/2016 12:56 AM CDT) Anatomical Region Laterality Modality Chest Other Impressions 07/17/2016 9:47 AM CDT Impression: No acute pulmonary process. Report dictated by Alcon Campos M.D., MPH (resident). Dr. CHETAN Garcia MD have personally reviewed and interpreted this examination/study. This report was electronically signed by CHETAN EDEN MD ??on 07/17/2016 9:47 AM . Narrative 07/17/2016 9:47 AM CDT Exam: XR CHEST PA AND LATERAL Exam Date: 07/17/2016 12:56 AM History: Chest pain Comparison: None. Findings: No acute pathologic opacity, pleural effusion, or pneumothorax is present. There is tenting of the left hemidiaphragm which could reflect scarring in the left lower lung. The cardiomediastinal silhouette is normal. ??The visible bony thorax is intact. Procedure Note Chetan Eden MD - 05/21/2017 Exam: XR CHEST PA AND LATERAL Exam Date: 07/17/2016 12:56 AM History: Chest pain Comparison: None. Findings: No acute pathologic opacity, pleural effusion, or pneumothorax is present.There is tenting of the left hemidiaphragm which could reflect scarring inthe left lower lung. The cardiomediastinal silhouette is normal. Thevisible bony thorax is intact. IMPRESSION Impression: No acute pulmonary process. Report dictated by Alcon Campos M.D., MPH (resident). Dr. CHETAN Garcia MD have personally reviewed and interpreted thisexamination/study. This report was electronically signed by CHETAN EDEN MD on 07/17/20169:47 AM . Ameena Wang MD DIAGNOSTIC IMAGING O RDERABLES * XR THORACIC SPINE 2VW (07/17/2016 12:56 AM CDT) Anatomical Region Laterality Modality Spine Other Impressions 07/17/2016 9:45 AM CDT Impression: No acute fracture or subluxation. Report dictated by Alcon Campos M.D., MPH (resident). Dr. CHETAN Garcia MD have personally reviewed and interpreted this examination/study. This report was electronically signed by CHETAN EDEN MD ??on 07/17/2016 9:45 AM . Narrative 07/17/2016 9:45 AM CDT Exam: XR SPINE LUMBAR 2 OR 3 VW, XR SPINE THORACIC 2 VWS Exam Date: 07/17/2016 12:56 AM History: Pain. Comparison: None. Findings: Thoracic spine: Bony alignment is normal. ??The vertebral body heights and intervertebral disc spaces are preserved. Mild midthoracic degenerative disc disease is present. ?? No acute fracture or subluxation is present. Lumbar spine: Bony alignment is normal. ??The vertebral body heights and intervertebral disc spaces are preserved. ??No acute fracture or subluxation is present. Mild facet osteoarthritis is present in the lower lumbar facets. Procedure Note Chetan Eden MD - 05/21/2017 Exam: XR SPINE LUMBAR 2 OR 3 VW, XR SPINE THORACIC 2 VWS Exam Date: 07/17/2016 12:56 AM History: Pain. Comparison: None. Findings: Thoracic spine: Bony alignment is normal. The vertebral body heights and intervertebraldisc spaces are preserved. Mild midthoracic degenerative disc disease ispresent. No acute fracture or subluxation is present. Lumbar spine: Bony alignment is normal. The vertebral body heights and intervertebraldisc spaces are preserved. No acute fracture or subluxation is present.Mild facet osteoarthritis is present in the lower lumbar facets. IMPRESSION Impression: No acute fracture or subluxation. Report dictated by Alcon Campos M.D., MPH (resident). Dr. CHETAN Garcia MD have personally reviewed and interpreted thisexamination/study. This report was electronically signed by CHETAN EDEN MD on 07/17/20169:45 AM . Ameena Wang MD DIAGNOSTIC IMAGING O RDERABLES * XR LUMBAR SPINE 2 OR 3VW (07/17/2016 12:56 AM CDT) Anatomical Region Laterality Modality Spine Other Impressions 07/17/2016 9:45 AM CDT Impression: No acute fracture or subluxation. Report dictated by Alcon Campos M.D., MPH (resident). Dr. CHETAN Garcia MD have personally reviewed and interpreted this examination/study. This report was electronically signed by CHETAN EDEN MD ??on 07/17/2016 9:45 AM . Narrative 07/17/2016 9:45 AM CDT Exam: XR SPINE LUMBAR 2 OR 3 VW, XR SPINE THORACIC 2 VWS Exam Date: 07/17/2016 12:56 AM History: Pain. Comparison: None. Findings: Thoracic spine: Bony alignment is normal. ??The vertebral body heights and intervertebral disc spaces are preserved. Mild midthoracic degenerative disc disease is present. ?? No acute fracture or subluxation is present. Lumbar spine: Bony alignment is normal. ??The vertebral body heights and intervertebral disc spaces are preserved. ??No acute fracture or subluxation is present. Mild facet osteoarthritis is present in the lower lumbar facets. Procedure Note Chetan Eden MD - 05/21/2017 Exam: XR SPINE LUMBAR 2 OR 3 VW, XR SPINE THORACIC 2 VWS Exam Date: 07/17/2016 12:56 AM History: Pain. Comparison: None. Findings: Thoracic spine: Bony alignment is normal. The vertebral body heights and intervertebraldisc spaces are preserved. Mild midthoracic degenerative disc disease ispresent. No acute fracture or subluxation is present. Lumbar spine: Bony alignment is normal. The vertebral body heights and intervertebraldisc spaces are preserved. No acute fracture or subluxation is present.Mild facet osteoarthritis is present in the lower lumbar facets. IMPRESSION Impression: No acute fracture or subluxation. Report dictated by Alcon Campos M.D., MPH (resident). Dr. CHETAN Garcia MD have personally reviewed and interpreted thisexamination/study. This report was electronically signed by CHETAN EDEN MD on 07/17/20169:45 AM . Ameena Wang MD DIAGNOSTIC IMAGING O RDERABLES Care Teams Glass Technician/Installer Relationship Specialty Start Date End Date Margarito Fong, LOFT RIGGER-JOY OPERATOR HELPER [address] [place] [id number] PCP - General 07/22/18
--- OUTSIDE RECORDS SUMMARY | 2024-03-16 13:52 | XMS_ITS | Referral Summary ---
Author Organization [facility] Address [address] [place] [address] Care Team Providers Care Ornamental Bronze Worker Name Role Phone Margarito Fong APRN-SULPHATE TESTER Primary Care Provider Source Comments [facility],non-owned Affiliates and Associated Physician Practices is amultiple site organization consisting of ambulatory clinics and hospital sitesin [place], [place], [place] and [place]. This disclosure is being madepursuant to the Care Everywhere program and may not contain all information available regarding this patient. Last updated 17.[facility] [employer] Social History Tobacco Use Types Packs/Day Years [...] Mass Index 27.44 07/16/2016 10:50 PM CDT Plan of Treatment Not on file Care Teams Ornamental Bronze Worker Relationship Specialty Start Date End Date Margarito Fong, PERENNIAL HOUSE MANAGER-SULPHATE TESTER [address] [place] [id number] PCP - General 07/22/18
--- OUTSIDE RECORDS SUMMARY | 2024-03-16 13:52 | XMS_ITS | Data Portability ---
Author Organization [place] [employer], Main Office Address [address] [place] [address] Assessment No assessment recorded. Plan of Treatment Reminders Order Date Submit Date Provider Last Modified By Organization Details Last Modified Time Details Appointments New Patient 15 2024 09:15A Jerrod Tilley MD Not available Not available Not available Lab vitamin D3, 25-hydrox y, serum 2023 024 [email or web address] Not available 02/24/2023 15:31:13 HbA1c (hemoglob in A1c), blood 2023 024 [email or web address] Not available 02/24/2023 16:42:10 BMP, serum or plasma 2023 024 [email or web address] Not available 02/24/2023 16:42:54 CBC w/ auto diff 2023 024 [email or web address] Not available 02/24/2023 16:43:13 hepatic function panel, serum 2023 024 [email or web address] Not available 02/24/2023 17:37:50 lipid panel, serum 2023 024 [email or web address] Not available 02/24/2023 16:43:31 Referral cardiolog ist referral - Please call patient to schedule an appointme nt. Thank you. 2023 024 [email or web address] Teo Concepcion MD, [address], [address], [place], [address], 06/23/2023 08:42:07 Procedures None recorded. Surgeries None recorded. Imaging MAMMO, screening , digital, bilateral - *Please call pt to schedule along with DEXA* 2023 024 [email or web address] 56 [facility], [address], [address], [place], [address], 05/03/2023 08:59:44 DEXA - *Please call pt to schedule* 2023 024 [email or web address] 56 [facility], [address], [address], [place], [address], 05/03/2023 08:59:45 Medication Orders Zithromax Z-Manuel 250 mg tablet 2023 [id number], [address], [place], [place], [id number], 11/09/2023 10:56:12 hydrochlo rothiazid e 12.5 mg tablet 2023 [id number], [address], [place], [place], [id number], 12/01/2023 10:01:11 Patient TargetsNo targets recorded. Patient Instructions Encounter Date Encounter Id Patient Instructions Last Modified By Organization Details Last Modified Time 02/24/2023 [id number] [facility] Plan and Screening Recommendations Advance Directives - Do you have one? Advance Directives - Do we have your advance directive on file in your health record? Primary Prevention/Interven tion (prevents or decreases the chance of common diseases from occurring) Smoking Risk: Alcohol Misuse Screening: Weight: Physical activity: Nutrition: Fall Risk (screened today): Vaccines Pneumococcal: Influenza: Chronic Disease Risks Stroke: I have no recommendations Act jareth diagnosis, Continue current treatment plan Heart Attack: I have no recommendations Act jareth diagnosis, Continue current treatment plan Clogging of the Arteries: I have no recommendations Act jareth diagnosis, Continue current treatment plan Diabetes: Secondary Prevention/Interven tion (detects treatable diseases before they may cause symptoms, disability, or ) Breast Cancer Screening with mammogram: Cervical/Uterine/Ov mohit Cancer Screening: Osteoporosis Screening: Date Screening Last Performed: Colon Cancer Screening: Date Screening Last Performed: Eye Disease Screening: Dementia Risk: Depression Screening: Not available 03/24/2023 11:56:51 Reason for Referral Anaesthetic 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 Thank you. Referring Physician: Margarita Chaudhary, Family Medicine, Encounter Date: 05/26/2023 Results Created Date Observation Date Name Description Value Unit Range Abnormal Flag Note LastModifiedBy Organization Detail LastModifiedTime 02/24/1902/24/2023 CBC/C OMPLE TE BLD COUNT W/DIF F white blood cells 10.2 x10'3 /uL 4.2-10 .8 Not Available [facility] (Lab) [address] [place], [address], 02/24/2023 19:48:38 02/24/1902/24/2023 CBC/C OMPLE TE BLD COUNT W/DIF F red blood cells 5.03 x10'6 /uL 3.80-5 .20 Not Available [facility] (Lab) [address] [place], [address], 02/24/2023 19:48:38 02/24/1902/24/2023 CBC/C OMPLE TE BLD COUNT W/DIF F hemoglobin 14.9 g/dL 12.0-1 5.6 Not Available [facility] (Lab) [address] [place], [address], 02/24/2023 19:48:38 02/24/1902/24/2023 CBC/C OMPLE TE BLD COUNT W/DIF F hematocrit 46.3 % 35.7-4 5.7 high Not Available [facility] (Lab) [address] [place], [address], 02/24/2023 19:48:38 02/24/19 24 02/24/2023 CBC/C OMPLE TE BLD COUNT W/DIF F mean red cell volume 92.0 fL 82.0-9 9.0 Not Available [facility] (Lab) [address] [place], [address], 02/24/2023 19:48:38 02/24/19 24 02/24/2023 CBC/C OMPLE TE BLD COUNT W/DIF F mean red cell hemoglobin 29.6 pg 27.0-3 3.0 Not Available [facility] (Lab) [address] [place], [address], 02/24/2023 19:48:38 02/24/19 24 02/24/2023 CBC/C OMPLE TE BLD COUNT W/DIF F mean RBC HGB concentratio n 32.2 g/dL 31.0-3 6.0 Not Available [facility] (Lab) [address] [place], [address], 02/24/2023 19:48:38 02/24/19 24 02/24/2023 CBC/C OMPLE TE BLD COUNT W/DIF F red cell distribution width 13.4 % 11.8-1 5.5 Not Available [facility] (Lab) [address] [place], [address], 02/24/2023 19:48:38 02/24/19 24 02/24/2023 CBC/C OMPLE TE BLD COUNT W/DIF F platelets 309 x10'3 /uL 150-40 0 Not Available [facility] (Lab) [address] [place], [address], 02/24/2023 19:48:38 02/24/19 24 02/24/2023 CBC/C OMPLE TE BLD COUNT W/DIF F mean platelet volume 11.7 fL 9.0-12 .4 Not Available [facility] (Lab) [address] [place], [address], 02/24/2023 19:48:38 02/24/19 24 02/24/2023 CBC/C OMPLE TE BLD COUNT W/DIF F neutrophils 66.2 % 39.0-7 2.0 Not Available [facility] (Lab) [address] [place], [address], 02/24/2023 19:48:38 02/24/19 24 02/24/2023 CBC/C OMPLE TE BLD COUNT W/DIF F lymphocytes 20.1 % 16.0-4 7.0 Not Available [facility] (Lab) [address] [place], [address], 02/24/2023 19:48:38 02/24/19 24 02/24/2023 CBC/C OMPLE TE BLD COUNT W/DIF F monocytes 8.7 % 5.0-12 .0 Not Available [facility] (Lab) [address] [place], [address], 02/24/2023 19:48:38 02/24/19 24 02/24/2023 CBC/C OMPLE TE BLD COUNT W/DIF F eosinophils 3.7 % 1.0-7. 0 Not Available [facility] (Lab) [address] [place], [address], 02/24/2023 19:48:38 02/24/19 24 02/24/2023 CBC/C OMPLE TE BLD COUNT W/DIF F basophils 0.6 % 0.0-2. 0 Not Available [facility] (Lab) [address] [place], [address], 02/24/2023 19:48:38 02/24/19 24 02/24/2023 CBC/C OMPLE TE BLD COUNT W/DIF F immature granulocytes 0.7 % 0.00-0 .50 high Not Available [facility] (Lab) [address] [place], [address], 02/24/2023 19:48:38 02/24/19 24 02/24/2023 CBC/C OMPLE TE BLD COUNT W/DIF F neutrophils, absolute count 6.78 x10'3 /uL 1.5-8. 0 Not Available [facility] (Lab) [address] [place], [address], 02/24/2023 19:48:38 02/24/19 24 02/24/2023 CBC/C OMPLE TE BLD COUNT W/DIF F lymphocytes, absolute count 2.06 x10'3 /uL 1.07-3 .43 Not Available [facility] (Lab) [address] [place], [address], 02/24/2023 19:48:38 02/24/19 24 02/24/2023 CBC/C OMPLE TE BLD COUNT W/DIF F monocytes, absolute count 0.89 x10'3 /uL 0.29-0 .99 Not Available [facility] (Lab) [address] [place], [address], 02/24/2023 19:48:38 02/24/19 24 02/24/2023 CBC/C OMPLE TE BLD COUNT W/DIF F eosinophils, absolute count 0.38 x10'3 /uL 0.02-0 .53 Not Available [facility] (Lab) [address] [place], [address], 02/24/2023 19:48:38 02/24/19 24 02/24/2023 CBC/C OMPLE TE BLD COUNT W/DIF F basophils, absolute count 0.06 x10'3 /uL 0.01-0 .08 Not Available [facility] (Lab) [address] [place], [address], 02/24/2023 19:48:38 02/24/19 24 02/24/2023 CBC/C OMPLE TE BLD COUNT W/DIF F immature granulocytes ,absolute 0.07 x10'3 /uL 0.00-0 .05 high Not Available [facility] (Lab) [address] [place], [address], 02/24/2023 19:48:38 02/24/19 24 02/24/2023 CBC/C OMPLE TE BLD COUNT W/DIF F nucleated red blood cells 0.0 % -0 Not Available [facility] (Lab) [address] [place], [address], 02/24/2023 19:48:38 02/24/19 24 02/24/2023 CBC/C OMPLE TE BLD COUNT W/DIF F NRBC# 0.00 x10'3 /uL Not Available [facility] (Lab) [address] [place], [address], 02/24/2023 19:48:38 02/24/19 24 02/24/2023 LIPID PANEL cholesterol 186 mg/dL 140-19 9 NIH LINDA NSUS RECOM MENDA TION FOR ARIAN STERO L: ADULT CHILD LOW RISK: <200 <170 BORDE RLINE : <200- 239 ----- HIGH RISK: >240 >200 Not Available [facility] (Lab) [address] [place], [address], 02/24/2023 19:56:12 02/24/1902/24/2023 LIPID PANEL triglyceride s 95 mg/dL 0-150 NIH LINDA NSUS REPOR T RECOM MENDA TION FOR TRIGL YCERI GUSTABO: ADULT CHILD LOW RISK: <150 ----- BODER LINE: 150-1 99 ----- HIGH RISK: >200 ----- Not Available [facility] (Lab) [address] [place], [address], 02/24/2023 19:56:12 02/24/19 24 02/24/2023 LIPID PANEL HDL cholesterol 57 mg/dL 40- Not Available [facility] (Lab) [address] [place], [address], 02/24/2023 19:56:12 02/24/19 24 02/24/2023 LIPID PANEL LDL cholesterol, calculated 110 mg/dL 0-130 NIH LINDA NSUS REPOR T RECOM MENDA TIONS FOR LDL: ADULT CHILD LOW RISK <130 <110 (OPTI MAL LDL) <100 ----- BORDE RLINE : 130-1 59 ----- HIGH RISK: >160 >130 A TRIGL YCERI DE RESUL T >400 INVAL IDATE S THE CALCU LATIO N FOR LDL FRACT IONAT ION - THE LDL RESUL T WILL NOT BE REPOR RUBIO. Not Available [facility] (Lab) [address] [place], [address], 02/24/2023 19:56:12 02/24/19 24 02/24/2023 BASIC METAB OLIC PANEL sodium 140 mmol/ L 137-14 5 Not Available [facility] (Lab) [address] [place], [address], 02/24/2023 19:56:17 02/24/19 24 02/24/2023 BASIC METAB OLIC PANEL potassium 4.4 mmol/ L 3.5-5. 1 Not Available [facility] (Lab) [address] [place], [address], 02/24/2023 19:56:17 02/24/19 24 02/24/2023 BASIC METAB OLIC PANEL chloride 102 mmol/ L 98-107 Not Available [facility] (Lab) [address] [place], [address], 02/24/2023 19:56:17 02/24/19 24 02/24/2023 BASIC METAB OLIC PANEL carbon dioxide 29 mmol/ L 22-30 Not Available [facility] (Lab) [address] [place], [address], 02/24/2023 19:56:17 02/24/19 24 02/24/2023 BASIC METAB OLIC PANEL anion gap 13.4 mmol/ L 14-22 low Not Available [facility] (Lab) [address] [place], [address], 02/24/2023 19:56:17 02/24/19 24 02/24/2023 BASIC METAB OLIC PANEL glucose 85 mg/dL 70-99 Not Available [facility] (Lab) [address] [place], [address], 02/24/2023 19:56:17 02/24/19 24 02/24/2023 BASIC METAB OLIC PANEL BUN 22 mg/dL 8-19 high Not Available [facility] (Lab) [address] [place], [address], 02/24/2023 19:56:17 02/24/19 24 02/24/2023 BASIC METAB OLIC PANEL creatinine 0.70 mg/dL 0.66-1 .25 Not Available [facility] (Lab) [address] [place], [address], 02/24/2023 19:56:17 02/24/19 24 02/24/2023 BASIC METAB OLIC PANEL GFR >60 Refer ence Range : Mason ge GFR Healt hy Adult : >60 mL/mi n/1.7 3 m2 Chron ic Kidne y Disea se: 15-60 mL/mi n/1.7 3 m2 Kidne y Failu re: <15/m L/min /1.73 m2 www.n iddk. nih.g ov The MDRD study equat ion has not been valid ated in child rajendra <18 years of age; pregn ant women ; the elder ly >85 years of age; or in some racia l or ethni c subgr oups, such as Hispa nics. Outsi de the valid ated honorio eters , estim ated GFR is less accur ate, requi ring clini juan carlos judgm ent on a case- by-ca se basis . Clini juan carlos inter preta tion for other races and ages must be made by the clini radha. The MDRD study equat ion has not been valid ated for the evalu ation of serum creat inine relat ed to nutri polo l statu s or medic ation usage . For perso ns <18 years of age, a pedia tric GFR calcu latayad is avail able on the [facility] websi te: https ://luma rmaos.o sindy/pr ofess ional s/kdo qi/gf r_cal culat or Not Available [facility] (Lab) [address] [place], [address], 02/24/2023 19:56:17 02/24/19 24 02/24/2023 BASIC METAB OLIC PANEL calcium 10.1 mg/dL 8.4-10 .2 Not Available [facility] (Lab) [address] [place], [address], 02/24/2023 19:56:17 02/24/19 24 02/24/2023 HEPAT IC/LI CECY PANEL alkaline phosphatase 80 U/L 38-126 Not Available [facility] (Lab) [address] [place], [address], 02/24/2023 19:56:27 02/24/19 24 02/24/2023 HEPAT IC/LI CECY PANEL alanine aminotransfe rase 9 U/L 0-35 Not Available [facility] (Lab) [address] [place], [address], 02/24/2023 19:56:27 02/24/19 24 02/24/2023 HEPAT IC/LI CECY PANEL aspartate aminotransfe rase 23 U/L 15-37 Not Available [facility] (Lab) [address] [place], [address], 02/24/2023 19:56:27 02/24/19 24 02/24/2023 HEPAT IC/LI CECY PANEL bilirubin, total 0.50 mg/dL 0.20-1 .30 Not Available [facility] (Lab) [address] [place], [address], 02/24/2023 19:56:27 02/24/19 24 02/24/2023 HEPAT IC/LI CECY PANEL bilirubin, conjugated (direct) 0.00 mg/dL 0.00-0 .30 Not Available [facility] (Lab) [address] [place], [address], 02/24/2023 19:56:27 02/24/19 24 02/24/2023 HEPAT IC/LI CECY PANEL biliurubin,u ncong. (indirect) 0.20 mg/dL 0.00-1 .1 Not Available [facility] (Lab) [address] [place], [address], 02/24/2023 19:56:27 02/24/19 24 02/24/2023 HEPAT IC/LI CECY PANEL total protein 7.6 g/dL 6.3-8. 2 Not Available [facility] (Lab) [address] [place], [address], 02/24/2023 19:56:27 02/24/19 24 02/24/2023 HEPAT IC/LI CECY PANEL albumin 4.6 g/dL 3.4-5. 0 Not Available [facility] (Lab) [address] [place], [address], 02/24/2023 19:56:27 02/24/19 24 02/24/2023 HEPAT IC/LI CECY PANEL globulin 3.0 g/dL 2.6-4. 2 Not Available [facility] (Lab) [address] [place], [address], 02/24/2023 19:56:27 02/24/19 24 02/24/2023 HEPAT IC/LI CECY PANEL A/G ratio 1.5 ratio 1.0-2. 0 Not Available [facility] (Lab) [address] [place], [address], 02/24/2023 19:56:27 0102/24/2023 VITAM IN D 25-HY DROXY vd25oh 24.4 NG/mL 30-100 low Vitam in D Statu s: Defic ient: <20 ng/mL Insuf ficie nt: 20-29 ng/mL Suffi cient : 30-10 0 ng/mL Not Available [facility] (Lab) [address] [place], [address], 02/24/2023 20:03:27 02/24/19 24 02/24/2023 HEMOG LOBIN A1C HA1C 5.5 % 4.0-6. 0 Diabe ugo Scree tressa Crite mariia: <5.7% Consi stent with absen ce of diabe ugo 5.7-6 .4% Consi stent with incre ased risk for diabe ugo (pred iabet es) >OR=6 .5% Consi stent with diabe ugo REFER ENCE: Diabe ugo Care 2016, 39(Juárez ppl.1 ):s13 -s22 Not Available [facility] (Lab) [address] [place], [address], 02/24/2023 23:19:12 05/18/19 24 05/18/2023 URINA LYSIS COMPL ETE/I RIS W/RFX color LIGHT- YELLOW Not Available [facility] (Lab) [address] [place], [address], 05/18/2023 19:41:36 05/18/19 24 05/18/2023 URINA LYSIS COMPL ETE/I RIS W/RFX appear TURBID abnormal Not Available [facility] (Lab) [address] [place], [address], 05/18/2023 19:41:36 05/18/19 24 05/18/2023 URINA LYSIS COMPL ETE/I RIS W/RFX specific gravity 1.017 1.001- 1.030 Not Available [facility] (Lab) [address] [place], [address], 05/18/2023 19:41:36 05/18/19 24 05/18/2023 URINA LYSIS COMPL ETE/I RIS W/RFX pH 6.0 pH_un its 5.0-9. 0 Not Available [facility] (Lab) [address] [place], [address], 05/18/2023 19:41:36 05/18/19 24 05/18/2023 URINA LYSIS COMPL ETE/I RIS W/RFX leukocytes 25 bro/u L negati ve- abnormal Not Available [facility] (Lab) [address] [place], [address], 05/18/2023 19:41:36 05/18/19 24 05/18/2023 URINA LYSIS COMPL ETE/I RIS W/RFX nitrite NEGATI VE negati ve- Not Available [facility] (Lab) [address] [place], [address], 05/18/2023 19:41:36 05/18/19 24 05/18/2023 URINA LYSIS COMPL ETE/I RIS W/RFX protein NEGATI VE mg/dL negati ve- Not Available [facility] (Lab) [address] [place], [address], 05/18/2023 19:41:36 05/18/19 24 05/18/2023 URINA LYSIS COMPL ETE/I RIS W/RFX glucose NORMAL mg/dL normal - Not Available [facility] (Lab) [address] [place], [address], 05/18/2023 19:41:36 05/18/19 24 05/18/2023 URINA LYSIS COMPL ETE/I RIS W/RFX ketones NEGATI VE mg/dL negati ve- Not Available [facility] (Lab) [address] [place], [address], 05/18/2023 19:41:36 05/18/19 24 05/18/2023 URINA LYSIS COMPL ETE/I RIS W/RFX urobilinogen NORMAL mg/dL normal - Not Available [facility] (Lab) [address] [place], [address], 05/18/2023 19:41:36 05/18/19 24 05/18/2023 URINA LYSIS COMPL ETE/I RIS W/RFX bilirubin NEGATI VE mg/dL negati ve- Not Available [facility] (Lab) [address] [place], [address], 05/18/2023 19:41:36 05/18/19 24 05/18/2023 URINA LYSIS COMPL ETE/I RIS W/RFX blood NEGATI VE mg/dL negati ve- Not Available [facility] (Lab) [address] [place], [address], 05/18/2023 19:41:36 05/18/19 24 05/18/2023 URINA LYSIS COMPL ETE/I RIS W/RFX white blood cells 9-20 /i??h pfi?? 0-8 abnormal Not Available [facility] (Lab) [address] [place], [address], 05/18/2023 19:41:36 05/18/19 24 05/18/2023 URINA LYSIS COMPL ETE/I RIS W/RFX red blood cells 0-4 /i??h pfi?? 0-4 Not Available [facility] (Lab) [address] [place], [address], 05/18/2023 19:41:36 05/18/19 24 05/18/2023 URINA LYSIS COMPL ETE/I RIS W/RFX bacteria OCCASI ONAL abnormal Not Available [facility] (Lab) [address] [place], [address], 05/18/2023 19:41:36 05/18/19 24 05/18/2023 URINA LYSIS COMPL ETE/I RIS W/RFX mucous OCCASI ONAL /i??l pfi?? abnormal Not Available [facility] (Lab) [address] [place], [address], 05/18/2023 19:41:36 05/18/19 24 05/18/2023 URINA LYSIS COMPL ETE/I RIS W/RFX squamous epithelial PACKED FIELD /i??l pfi?? abnormal Not Available [facility] (Lab) [address] [place], [address], 05/18/2023 19:41:36 05/18/1905/18/2023 urina lysis , dipst ick Leukocytes (reference range: negative bro/? ? ?l) Small Not Available [address], [place], [address], 05/17/2023 13:49:13 05/18/1905/18/2023 urina lysis , dipst ick Nitrite (reference rage: negative mg/dl) negati ve Not Available [address], [place], [address], 05/17/2023 13:49:13 05/18/19 24 05/18/2023 urina lysis , dipst ick Urobilinogen (reference range: 0.2-1 mg/dl) 0.2 Not Available [address], [place], [address], 05/17/2023 13:49:13 05/18/1905/18/2023 urina lysis , dipst ick Protein (reference range: negative mg/dl) Negati ve Not Available [address], [place], [address], 05/17/2023 13:49:13 05/18/19 24 05/18/2023 urina lysis , dipst ick pH (reference range: 5-7) 6.0 Not Available [address], [place], [address], 05/17/2023 13:49:13 05/18/1905/18/2023 urina lysis , dipst ick Blood (reference range: negative Bry/? ? ?l) Non-He molyze d: Trace Not Available [address], [place], [address], 05/17/2023 13:49:13 05/18/1905/18/2023 urina lysis , dipst ick Specific [place] (reference range: 1.005-1.030) 1.020 Not Available [address], [place], [address], 05/17/2023 13:49:13 05/18/1905/18/2023 urina lysis , dipst ick Ketone (reference range: negative mg/dl) Negati ve Not Available [address], [place], [address], 05/17/2023 13:49:13 05/18/1905/18/2023 urina lysis , dipst ick Bilirubin (reference range: negative mg/dl) Negati ve Not Available [address], [place], [address], 05/17/2023 13:49:13 05/18/1905/18/2023 urina lysis , dipst ick Glucose (reference range: negative mg/dl) Negati ve Not Available [address], [place], [address], 05/17/2023 13:49:13 05/18/1905/18/2023 urina lysis , dipst ick Appearance Clear Not Available [facility] [address], [place], [address], 05/17/2023 13:49:13 05/18/19 24 05/18/2023 urina lysis , dipst ick Color Yellow Not Available [facility] [address], [place], [address], 05/17/2023 13:49:13 09/09/19 24 09/09/2023 cardi ac monit or No observ ation record ed. [email or web address] [address] [address], [place], [address], 09/14/2023 10:54:53 02/01/20 24 02/01/2024 imagi ng/di agnos tic resul t No observ ation record ed. [facility] [address] [place], [address], 02/01/2024 10:23:27 03/13/19 25 03/13/2024 imagi ng/di agnos tic resul t No observ ation record ed. [facility] [address] [facility], [place], [address], 03/13/2024 15:31:47 Result Notes None recorded. Problems Name Problem SNOMED Code Status Onset Date Resolution Date Notes Provider Name and Address Organization Details Recorded Time Screening - NAD 861622313 Active Not Available [facility] 3 10:46:45 Acute constipati on 289718933 Active Not Available [facility] 3 10:46:45 Gastroesop hageal reflux disease without esophagiti s 481553223 Active 2021 Not Available [facility] 3 10:46:45 Injury of ribs 161408668 Active Not Available [facility] 3 10:46:45 Numbness of limbs 697110395 Active Not Available [facility] 3 10:46:45 Vitamin D deficiency 83231288 Active Not Available [facility] 3 10:46:45 Goiter 0735535 Active Not Available [facility] 3 10:46:45 Near syncope 314382632 Active Not Available [facility] 3 10:46:45 Upper respirator y infection 55693154 Active Not Available [facility] 3 10:46:45 Essential hypertensi on 72548488 Active Not Available [facility] 3 10:46:45 Allergic rhinitis 38780171 Active Not Available [facility] 3 10:46:45 Prediabete s 191047756 Active 2019 Not Available [facility] 3 10:46:46 Sleep apnea 80844115 Active 2020 on Cpap Not Available [facility] 3 10:46:46 Pulmonary emphysema 79851568 Active Not Available [facility] 3 10:46:46 History of hepatitis C 6830789689261 1 Active 2019 Not Available [facility] 3 10:46:46 Skin lesion 26952629 Active 2022 FUNMILAYO Conrad [address], [address], [place], [address] , [employer] 3 10:52:25 Hemorrhoid s 31057056 Active 2022 FUNMILAYO Conrad [address], [address], [place], [address] , [employer] 3 19:35:44 Dysuria 35043294 Active 2022 FUNMILAYO Conrad [address], [address], [place], [address] , [employer] 3 11:23:24 Seasonal allergy 818316124 Active 2022 FUNMILAYO Conrad [address], [address], [place], [address] , [employer] 3 17:06:23 Flank pain 348891134 Active 2022 FUNMILAYO Conrad [address], [address], [place], [address] , [place] [facility] 3 09:44:13 Pain of left breast 7214295792 Active 2022 Margarita Chaudhary MD [address], [address], [place], [address] , [place] [facility] 3 17:08:00 Osteoarthr itis 434842396 Active 2022 Margarita Chaudhary MD [address], [address], [place], [address] , [place] [facility] 3 17:09:54 Cough 04072662 Active 2022 Margarita Chaudhary MD [address], [address], [place], [address] , [place] - [facility] 3 13:57:03 Acute urinary tract infection [id number] Active 2023 Margarita Chaudhary MD [address], [address], [place], [address] , [place] [facility] 4 16:14:25 Chest pain 90620350 Active 2023 Margarita Chaudhary MD [address], [address], [place], [address] , [place] - [facility] 4 14:39:06 Acute upper respirator y infection 17350646 Active 2023 LULÚ Marshall [address], [address], [place], [address] , [place] - [facility] 4 10:55:51 Dyspnea [id number] Active 2023 LULÚ Marshall [address], [address], [place], [address] , [place] [facility] 4 09:57:09 Dyspnea on exertion 39935475 Active 2023 LULÚ Marshall [address], [address], [place], [address] , [facility] [employer] [facility] 09:57:56 Problem Notes None recorded. 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 Medical Equipment None Reported. Allergies No known drug allergies Medications Name Sig Start Date Stop Date Status Note LastModified by Organization Details LastModified Time cyclobenz aprine 10 mg tablet Take 1 tablet 3 times a day by oral route as needed for 10 days. active Not Available Not Available No t Available Miralax 17 gram/dose oral powder 11/20 completed Not Available Not Available Not Available Mapap Extra Strength 500 mg tablet 12/21 completed Not Available Not Available Not Available buspirone 5 mg tablet TK 2 TS PO BID 02/02 completed Not Available Not Available Not Available Qvar 80 mcg/actua tion Metered Aerosol oral inhaler Inhale 2 puffs BID 02/02 completed Not Available Not Available Not Available neomycin- polymyxin -hydrocor t 3.5 mg/mL-10, 000 unit/mL-1 % ear solution INSTILL 4 DROPS INTO AFFECTED EAR(S) BY OTIC ROUTE 3 TIMES PER DAY active Not Available Not Available No t Available prednison e 10 mg tablet 02/02 completed Not Available Not Available Not Available doxycycli ne hyclate 100 mg capsule 02/02 completed Not Available Not Available Not Available ipratropi um 0.5 mg-albute rol 3 mg (2.5 mg base)/3 mL nebulizat ion soln USE 1 VIAL IN NEBULIZE R 4 TO 6 TIMES DAILY NEEDED 02/02 completed Not Available Not Available Not Available albuterol sulfate 2.5 mg/3 mL (0.083 %) solution for nebulizat ion VVN UP TO QID PRN active Not Available Not Available No t Available fexofenad ine 60 mg tablet Take 1 tab twice daily as needed 05/21 completed Not Available Not Available Not Available Pneumovax -23 25 mcg/0.5 mL injection solution active Not Available Not Available Not Available lisinopri l 20 mg-hydroc hlorothia zide 12.5 mg tablet TK 1 T PO D 11/24 completed Not Available Not Available Not Available oxybutyni n chloride ER 10 mg tablet,ex tended release 24 hr Take 1 tablet every day by oral route for 30 days. 02/02 completed Not Available Not Available Not Available azithromy mirian 250 mg tablet TAKE 2 TABLETS (500 MG) BY ORAL ROUTE ONCE DAILY FOR 1 DAY THEN 1 TABLET (250 MG) BY ORAL ROUTE ONCE DAILY FOR 4 DAYS active Not Available Not Available No t Available benzonata te 200 mg capsule TAKE 1 CAPSULE BY MOUTH THREE TIMES DAILY NEEDED FOR COUGH 12/21 completed Not Available Not Available Not Available clarithro mycin 500 mg tablet 05/21 completed Not Available Not Available Not Available hydrocodo ne 5 mg-acetam inophen 325 mg tablet 02/02 completed Not Available Not Available Not Available ondansetr on HCl 4 mg tablet active Not Available Not Available No t Available famotidin e 40 mg tablet TK 1 T PO QD 11/20 completed Not Available Not Available Not Available prednison e 20 mg tablet TAKE 2 TABLETS BY MOUTH DAILY WITH FOOD FOR 5 DAYS active Not Available Not Available No t Available naproxen 250 mg tablet TK 1 T PO BID WF PRN P 12/21 completed Not Available Not Available Not Available promethaz ine 6.25 mg-codein e 10 mg/5 mL syrup active Not Available Not Available Not Available ciproflox acin 500 mg tablet TK 1 T PO Q 12 H FOR 7 DAYS 02/02 completed Not Available Not Available Not Available sulfameth oxazole 800 mg-trimet hoprim 160 mg tablet TAKE 1 TABLET BY MOUTH EVERY 12 HOURS FOR 7 DAYS 12/21 completed Not Available Not Available Not Available peg-elect rolyte solution 420 gram oral solution MIX AND TAKE DIRECTED BY OFFICE 02/02 completed Not Available Not Available Not Available tramadol 50 mg tablet TAKE 1 TABLET BY MOUTH EVERY 6 HOURS NEEDED 12/21 completed Not Available Not Available Not Available triamcino lone acetonide 0.1 % topical cream 06/20 completed Not Available Not Available Not Available baclofen 20 mg tablet Take 1 tablet 4 times a day by oral route for 30 days. 07/13 completed Not Available Not Available Not Available amoxicill in 875 mg tablet Take 1 tablet every 12 hours by oral route for 10 days. active Not Available Not Available No t Available alprazola m 0.25 mg tablet 02/18 completed Not Available Not Available Not Available tamsulosi n 0.4 mg capsule TAKE 1 CAPSULE BY MOUTH EVERY DAY FOR 10 DAYS 12/21 completed Not Available Not Available Not Available dicyclomi ne 20 mg tablet 05/21 completed Not Available Not Available Not Available amlodipin e 10 mg tablet TAKE 1 TABLET BY MOUTH EVERY DAY active Not Available Not Available No t Available doxycycli ne monohydra te 100 mg capsule TAKE 1 CAPSULE BY MOUTH TWICE DAILY FOR 5 DAYS 12/21 completed Not Available Not Available Not Available cephalexi n 500 mg capsule TAKE 1 CAPSULE BY MOUTH TWICE DAILY FOR 7 DAYS 12/21 completed Not Available Not Available Not Available lisinopri l 10 mg tablet Take 1 tablet every day by oral route for 90 days. active Not Available Not Available No t Available prednison e 50 mg tablet TK 1 T PO QAM WITH FOOD OR MILK 02/02 completed Not Available Not Available Not Available promethaz ine 25 mg tablet TAKE 1/2 TABLET BY MOUTH EVERY 6 HOURS NEEDED FOR NAUSEA 02/02 completed Not Available Not Available Not Available Advair Diskus 250 mcg-50 mcg/dose powder for inhalatio n INHALE 1 PUFF BY MOUTH TWICE DAILY 03/19 completed Not Available Not Available Not Available omeprazol e 20 mg capsule,d elayed release TAKE 1 CAPSULE TWICE DAILY FOR 1 WEEK THEN ONCE DAILY 11/20 completed Not Available Not Available Not Available budesonid e 0.5 mg/2 mL suspensio n for nebulizat ion INHALE 1 VIAL PER NEBULIZE R TWICE DAILY 02/18 completed Not Available Not Available Not Available diclofena c sodium 75 mg tablet,de layed release TAKE 1 TABLET BY MOUTH TWICE DAILY NEEDED active Not Available Not Available No t Available hydroxyzi ne HCl 25 mg tablet 05/21 completed Not Available Not Available Not Available levofloxa mirian 500 mg tablet active Not Available Not Available No t Available levofloxa mirian 750 mg tablet TAKE 1 TABLET BY MOUTH DAILY 12/21 completed Not Available Not Available Not Available methylpre dnisolone 4 mg tablets in a dose pack FOLLOW PACKAGE DIRECTIO NS 02/24 completed Not Available Not Available Not Available albuterol sulfate HFA 90 mcg/actua tion aerosol inhaler INHALE 1 TO 2 PUFFS BY MOUTH EVERY 4 TO 6 HOURS NEEDED FOR SHORTNES S OF BREATH OR WHEEZING active Not Available Not Available No t Available oxybutyni n chloride 5 mg tablet Take one tablet daily 02/02 completed Not Available Not Available Not Available ondansetr on 4 mg disintegr ating tablet DISSOLVE 1 T ON TONGUE Q 8 H 11/20 completed Not Available Not Available Not Available fluticaso ne propionat e 50 mcg/actua tion nasal spray,aarti pension SHAKE LIQUID AND USE 1 SPRAY IN EACH NOSTRIL EVERY DAY active Not Available Not Available No t Available doxycycli ne hyclate 100 mg tablet TAKE 1 TABLET BY MOUTH TWICE DAILY FOR 7 DAYS active Not Available Not Available No t Available loratadin e 10 mg tablet TK 1 T PO QD 11/20 completed Not Available Not Available Not Available ipratropi um bromide 0.02 % solution for inhalatio n USE 1 VIAL VIA NEBULIZE R FOUR TIMES DAILY NEEDED active Not Available Not Available No t Available amoxicill in 875 mg-potass ium clavulana te 125 mg tablet Take 1 tablet every 12 hours by oral route with meals for 7 days. active Not Available Not Available No t Available Spiriva with [employer] r 18 mcg and inhalatio n capsules 03/01 completed Not Available Not Available Not Available nitrofura ntoin monohydra te/macroc rystals 100 mg capsule TAKE 1 CAPSULE BY MOUTH EVERY 12 HOURS FOR 7 DAYS 05/25 completed Not Available Not Available Not Available eszopiclo ne 2 mg tablet 02/02 completed Not Available Not Available Not Available Atrovent HFA 17 mcg/actua tion aerosol inhaler 11/20 completed Not Available Not Available Not Available Mucinex D 60 mg-600 mg tablet,ex tended release Take 1 tablet twice a day by oral route as needed. active Not Available Not Available No t Available hydrochlo rothiazid e 12.5 mg tablet Take 1 tablet every day by oral route. active Not Available Not Available No t Available Brovana 15 mcg/2 mL solution for nebulizat ion VVN BID 02/18 completed Not Available Not Available Not Available Symbicort 160 mcg-4.5 mcg/actua tion HFA aerosol inhaler 2 PUFF INHALED EVERY 12 HOURS RINSE AND SPIT. active Not Available Not Available No t Available Symbicort 80 mcg-4.5 mcg/actua tion HFA aerosol inhaler Inhale 2 puffs twice a day by inhalati on route. 05/28 completed Not Available Not Available Not Available Vios Aerosol Delivery System U UTD 02/02 completed Not Available Not Available Not Available Linzess 290 mcg capsule Take 1 capsule every day by oral route for 10 days. 11/20 completed Dispense Qty: 10. Not Available Not Available Not Available Aerospan 80 mcg/actua tion HFA aerosol inhaler Inhale 2 puffs twice a day by inhalati on route. active Not Available Not Available No t Available Fluvirin 7016-5650 45 mcg (15 mcg x 3)/0.5 mL intramusc ular suspensio n active Not Available Not Available Not Available Harvoni 90 mg-400 mg tablet 02/02 completed Not Available Not Available Not Available Spiriva Respimat 2.5 mcg/actua tion solution for inhalatio n Inhale 2 puffs every day by inhalati on route. active Not Available Not Available No t Available oxygen 2-L 2021 active Not Available Not Available Not Avai marline Daliresp 250 mcg tablet 11/24 completed Not Available Not Available Not Available Afluria Quad (PF) 60 mcg (15 mcg x 4)/0.5 mL IM syringe 02/12 completed Not Available Not Available Not Available Afluria Qd (36 mos up)(PF)60 mcg (15 mcg x4)/0.5 mL IM syringe ADM 0.5ML IM UTD 02/12 completed Not Available Not Available Not Available COVID-19 test specimen collectio n TEST DIRECTED TODAY 02/02 completed Not Available Not Available Not Available Afluria Qd (36 mos up)(PF)60 mcg (15 mcg x4)/0.5 mL IM syringe ADM 0.5ML IM UTD active Not Available Not Available No t Available Paxlovid 300 mg (150 mg x 2)-100 mg tablets in a dose pack TAKE 2 NIRMATRE LVIR TABLETS AND 1 RITONAVI R TABLET TOGETHER BY MOUTH TWICE DAILY FOR 5 DAYS active Not Available Not Available No t Available Vitals Date Recorded Body height Body mass index (BMI) Body weight Body temperature Heart rate Oxygen saturation Oxygen saturation in Arterial blood by Pulse oximetry Inhaled oxygen flow rate Systolic blood pressure Diastolic blood pressure Provider Name and Address Organization Details Last Updated DateTime 4 167.64 cm 30.8 kg/m2 39438.1 4 g 97.7 [degF] 88 /min 96 % 96 % 2 L/min 198 mm[Hg] 98 mm[Hg] Shirley Alex RN [facility] [employer] 4 14:50:48 Date Recorded Body height Body mass index (BMI) Body weight Body temperature Oxygen saturation Oxygen saturation in Arterial blood by Pulse oximetry Inhaled oxygen flow rate Systolic blood pressure Diastolic blood pressure Provider Name and Address Organization Details Last Updated DateTime 4 167.64 cm 31.5 kg/m2 09103.5 1 g 97.7 [degF] 92 % 92 % 2 L/min 136 mm[Hg] 78 mm[Hg] Shirley Alex RN [facility] [employer] 4 14:30:45 Date Recorded Heart rate Provider Name an d Address Organization Details Last Updated DateTime 05/26/2023 93 /min Margarita Chaudhary MD [address] [address], [place], [address], [place] [employer] [facility] [employer] 05/26/2023 14:37:44 Date Recorded Body height Body mass index (BMI) Body weight Body temperature Heart rate Oxygen saturation Oxygen saturation in Arterial blood by Pulse oximetry Systolic blood pressure Diastolic blood pressure Provider Name and Address Organization Details Last Updated DateTime 4 167.64 cm 31.5 kg/m2 80951.5 1 g 97.8 [degF] 102 /min 94 % 94 % 142 mm[Hg] 78 mm[Hg] Shirley Alex RN [facility] [employer] 4 10:46:19 Date Recorded Body height Body mass index (BMI) Body weight Body temperature Heart rate Oxygen saturation Oxygen saturation in Arterial blood by Pulse oximetry Systolic blood pressure Diastolic blood pressure Provider Name and Address Organization Details Last Updated DateTime 167.64 cm 31.3 kg/m2 42235.9 2 g 97.7 [degF] 97 /min 91 % 91 % 152 mm[Hg] 98 mm[Hg] Shirley Alex RN [facility] [employer] 09:48:59 Social History Question Answer Notes LastModified by Organization Details LastModified Time Tobacco Smoking Status Former Smoker quit smoking 2015 Margarita Chaudhary MD [address] [address], [place], [address], [employer] 02/24/2023 15:18:35 Do You Have An Advance Directive? No Patient Declined Informatio n. [id number] Information not available 04/22/2022 What Is Your Level Of Alcohol Consumption? None [id number] Information not available 04/22/2022 Do You Wear A Helmet When Biking? Yes [email or web address] Information not available 02/24/2023 What Is Your Level Of Caffeine Consumption? Moderate [id number] Information not available 04/22/2022 In The 14 Days Before Symptom Onset, Have You Had Close Contact With A Laboratory-conf missy NICOLE-Augie While That Case Was Ill? No [email or web address] Information not available 02/24/2023 In The 14 Days Before Symptom Onset, Have You Had Close Contact With A Person Who Is Under Investigation For COVID-19 While That Person Was Ill? No [email or web address] Information not available 02/24/2023 What Type Of Diet Are You Following? REGULAR [id number] Information not available 04/22/2022 What Is The Highest Grade Or Level Of School You Have Completed Or The Highest Degree You Have Received? [id number] [email or web address] Information not available 02/24/2023 How Many Days Of Moderate To Strenuous Exercise, Like A Brisk Walk, Did You Do In The Last 7 Days? 7 [email or web address] Information not available 02/24/2023 On Those Days That You Engage In Moderate To Strenuous Exercise, How Many Minutes, On Average, Do You Exercise? 30 [email or web address] Information not available 02/24/2023 Have There Been Any Changes To Your Family Or Social Situation? No [email or web address] Information not available 02/24/2023 What Is The Fluoride Status Of Your Home? Unknown [email or web address] Information not available 02/24/2023 When Did You Quit Smoking? 6-10yearssincelast cigarette [email or web address] Information not available 02/24/2023 Are There Any Guns Present In Your Home? No [email or web address] Information not available 02/24/2023 Do You Use Insect Repellent Routinely? No [email or web address] Information not available 02/24/2023 Where Do You Live? SingleLevelHouse With Basement Information not available 02/24/2023 Do You Have A Medical Power Of Track Equipment Operator? No [email or web address] Information not available 02/24/2023 What Was The Date Of Your Most Recent Tobacco Screening? 02/24/2023 Information not available 02/24/2023 Do You Have Any Pets? Yes [email or web address] Information not available 02/24/2023 What Is Your Relationship Status? [id number] Information not available 04/22/2022 Do You Use Your Seat Belt Or Car Seat Routinely? Yes Information not available 02/24/2023 Do You Have Smoke And Carbon Monoxide Detectors In Your Home? Yes Information not available 02/24/2023 At What Age Did You Start Smoking Tobacco? 11 Information not available 02/24/2023 Are You Passively Exposed To Smoke? No [email or web address] Information not available 02/24/2023 Are There Any Smokers In Your House? No [email or web address] Information not available 02/24/2023 Do You Participate In Social Media? No [email or web address] Information not available 02/24/2023 What Types Of Sporting Activities Do You Participate In? Biking Information not available 02/24/2023 Do You Feel Stressed (tense, Restless, Nervous, Or Anxious, Or Unable To Sleep At Night)? [id number] [email or web address] Information not available 02/24/2023 Do You Use Any Illicit Or Recreational Drugs? No Information not available 02/24/2023 Do You Use Sunscreen Routinely? Yes [email or web address] Information not available 02/24/2023 Has Tobacco Cessation Counseling Been Provided? No [email or web address] Information not available 02/24/2023 How Many Years Have You Smoked Tobacco? 45 Information not available 02/24/2023 Have You Recently Traveled Abroad? No Information not available 02/24/2023 Are You Currently In School? No Information not available 02/24/2023 Do You Have Any Dietary Restrictions? No [email or web address] Information not available 02/24/2023 Do You Or Have You Ever Used Any Other Forms Of Tobacco Or Nicotine? No Information not available 02/24/2023 Sex: Female Functional Status Question Answer Note LastModified by Organizat ion Details LastModified Time What is your exercise level? Occasional Patient stated she occasionally does Silver Sneakers. [id number] Information not available 04/22/2022 Mental Status None recorded. Family History Relationship Description Onset Age of this Age Resolved Age Notes LastModified by Organization Details LastModified Time Mother Heart disease [id number] Not available 04/22/2022 10:42:58 Medical History No medical history recorded. Gynecological History Statement/Question Response How many live births 2 If Post Menopausal, Age at Menopause 52 Date of Last Mammogram Date of Last Colonoscopy Date of LMP Sexually Active? N Menses Monthly N Current Control Method None Breast Problems none Discharge no Obstetrics History GPAL:G 4 P 0 0 2 2 Type Value Induced 2 Living 2 Total 4 Immunizations Vaccine Type Date Status Note Provider Blair e and Address Organization Details Recorded Time influenza, unspecified formulation 2 completed Not Available [facility] 04/22/2022 10:52:13 Influenza, split virus, quadrivalent, preservative 6 completed Not Available [facility] 04/22/2022 10:52:13 pneumococcal polysaccharide PPV23 1 completed Not Available [facility] 04/22/2022 10:52:13 Pneumococcal conjugate PCV 13 9 completed Not Available [facility] 04/22/2022 10:52:13 Influenza, split virus, quadrivalent, PF 7 completed Not Available [facility] 04/22/2022 10:52:13 Tdap 7 completed Not Available [facility] 04/22/2022 10:52:13 COVID-19, mRNA, LNP-S, PF, 100 mcg/0.5mL dose or 50 mcg/0.25mL dose 1 completed Not Available [facility] 04/22/2022 10:52:14 Influenza, split virus, trivalent, PF 4 completed FUNMILAYO Marshall-Suzie [address] [facility] [address], [place], [address], [facility] [employer] [facility] 12/01/2023 13:41:12 Past Encounters Encounter ID Performer Location Encounter Start Date Encounter Closed Date Diagnosis/Indication Diagnosis SNOMED-CT Code Diagnosis ICD10 Code Diagnosis Note [id number] [facility] Primary Care [facility] [address] [facility] [address] [place] [address] 12/11/2020 00:00:00 12/11/2020 17:46:08 [id number] [facility] Primary Care [facility] [address] [facility] [address] [place] [address] 01/28/2022 00:00:00 01/28/2022 14:08:24 [id number] _ABBY_M IGRATION_ DEFAULT_1 _1 , 02/18/2022 00:00:00 02/18/2022 16:14:27 [id number] [facility] Primary Care [address] [place] [facility] [address] [place] [address] 03/13/2022 00:00:00 03/13/2022 16:36:06 [id number] FUNMILAYO Conrad [facility] Primary [facility] [address] [facility] [address] [facility] [address] 04/23/2022 10:39:43 04/23/2022 12:44:12 Skin lesion 11878976 L98.9 New problemLef t shinConcer elsie for possible basal cell. Will refer to derm for further evaluation /tx. Pulmonary emphysema 8743 3001 J43.9 Chronic, End Stage???St able with supplement al O2Pt aware of progressiv e nature of COPD at length. Encouraged proper breathing techniques . Advised compliance with supplement al O2, nebulizer and inhaled medication s as directed. Encouraged patient to avoid cigarette smoke, allergens, and environmen lynette pollutants . Advised HVAC filters be changed seasonally as well. per patient, she was not candidate for Sublimity system or lung consolidat ion surgery. Hemorrhoids 86045661 K64 .9 Per patient, stable with dietary changes (no popcorn, chips, spicy). [id number] FUNMILAYO Conrad [facility] Primary Care [address] [place] [address] 09/28/2022 09:19:00 09/28/2022 10:19:20 Flank pain 039875728 R10.9 New problemuti vs renal stone vs muscle strainUrin e dip neg in office, but this is not pts first urine of the day.Will send for UA, reflex cx. In the meantime, pt to start flomax and abx, alternate ibuprofen/ acetaminop hen, with tramadol for breakthrou gh pain.Pt to call on Wednesday if no improvemen t. [id number] Margarita Chaudhary MD [facility] Primary Care [address] [place] [address] 12/21/2022 16:40:32 12/21/2022 17:13:14 Pain of left breast [id number] N64.4 Over due for mammograml ikely healing abscess, but will check diagnostic mammogram b/l and US left breastcall /return if no improvemen t in 1-2 days or sooner if neededrevi ewed s/s that warrant urgent/luly rgent eval in meantime Osteoarthritis 463867935 M19.90 d/c otc ibuprofeno k to continue heat, topicals, activities as toleratedd iclofenac 75 mg po bid with food prn, avoid other nsaidsf/u in 3 months or sooner if needed [id number] Margarita Chaudhary MD [facility] Primary Care [place] [address] [facility] [address] [place] [address] 02/24/2023 14:42:46 02/24/2023 15:28:00 Adult health examination 021620888 Z00.00 Z13.220 Pneumovax 23 done revna r 20 done 2022Recomm end shingles vaccine seriesFlu vaccine yearlyCovi d booster given 12/14Plan pneumovax 23 again age 67Colonosc opy done 2020, repeat 2025 recommende dLDCT done 10/14 done by pulmonaryS creen mammogram orderedChe ck fasting labs Screening mammography 24 737851 Z12.31 Postmenopausal state 764 90689 Z78.0 Vitamin D deficiency 347 31351 E55.9 Prediabetes 236826071 R7 3.03 stable Essential hypertension 12563601 I10 Z79.899 stable [id number] Margarita Chaudhary MD [facility] Primary Care [place] [address] [facility] [address] [place] [address] 05/18/2023 10:48:42 05/18/2023 16:36:54 [id number] Margarita Chaudhary MD [facility] Primary Care [place] [address] [facility] [address] [place] [address] 05/26/2023 14:23:03 05/26/2023 15:46:42 Chest pain 33561116 R07.9 Reviewed labscardio logy referral givenrevie wed s/s that warrant urgent/luly rgent eval in meantime Essential hypertension 31640928 I10 Z79.899 stablef/u in 6 months [id number] LULÚ Marshall [facility] Primary Care [place] [address] [facility] [address] [place] [address] 11/09/2023 10:37:35 11/09/2023 14:43:38 Acute upper respiratory infection 59502454 J06.9 [id number] LULÚ Marshall [facility] Primary Care [facility] [address] [facility] [address] [place] [address] 12/01/2023 09:43:55 12/01/2023 10:46:04 Essential hypertension 84651090 I10 Z79.899 152/98Will start HCTZ as listed below, encouraged patient to follow up with Cardiologi st. Administra tion of influenza vaccine 52937323 Z23 Gastroesop hageal reflux disease without esophagitis [id number] K21.9 Dyspnea on exertion 6084 [id number] R06.09 sees pulmonolog y tomorrow.S uggested patient follow up with Cardjeremias t as well. Health Concerns Section Related Observation LastModified by Organization Detai ls LastModified Time None Recorded Concern Status LastModified by Organization Details LastModified Time None Recorded Advance Directives Directive N: Patient declined informat ion. Payers Encounter Date Sequence Insurance Name Policy Number Policy Jade Covered Member ID Jade Member ID Guarantor Name 02/24/2023 1 [employer] (MEDICARE REPLACEMENT HMO) Janet A Ashwin [id number] Janet A Ashwin 05/18/2023 1 [employer] (MEDICARE REPLACEMENT HMO) Janet A Ashwin [id number] Janet A Ashwin 05/26/2023 1 [employer] (MEDICARE REPLACEMENT HMO) Janet A Ashwin [id number] Janet A Ashwin 11/09/2023 1 [employer] (MEDICARE REPLACEMENT HMO) Janet A Ashwin [id number] Janet A Ashwin 12/01/2023 1 [employer] - [employer]US (MEDICARE REPLACEMENT HMO) Janet A Ashwin [id number] Janet A Ashwin Notes Date Note Type Note Provider Name and Address Organization Details Recorded Time 02/24/2023 text/html Here for trip s exam. Currently on 2 lpm oxygen continuous Margarita Chaudhary MD [address] [place] [address], [place] [address], [place], [address], [employer] 03/24/2023 11:57:39 05/26/2023 text/html Currently on 2 l pm oxygen continuous, feeling well overall. Breathing is at baseline. She has chest pain about 3x per week that can be in right chest, left chest, upper abd. Lasts 3 minutes or so, can be worse when she takes a deep breath. She's not sure if it is heartburn related. Margarita Chaudhary MD [address], [employer], [place], [address], [employer] 05/26/2023 14:42:27 11/09/2023 text/html Patient is a 63 year old female that presents to the office for follow up. Patient reports she was sick earlier this month, went to and was diagnosed with Covid. Patient finished the Paxlovid but symptoms never fully resolved. Patient reports she has productive cough with green sputum, increased shortness of breath, bilateral ear pain and sore throat. Patient also reports body aches and chills. Patient denies chest pain and fevers.Patient has been taking Theraflu and Chloraseptic Lozenges with mild relief of symptoms. LULÚ Marshall [address], [place], [address], [employer] 11/09/2023 11:00:55 12/01/2023 text/html Patient is a 63 year old female that presents to the office for follow up. Patient reports worsening shortness of breath since having Covid last month. Patient reports she is not able to shower without using her oxygen which is new for her. Patient also reports bilateral lower leg swelling since taking the Paxlovid. Patient sees her Early Childhood Director tomorrow. Patient reports her BP has been running high, she checks it twice daily at home and it has been running 160-170s/100s. Patient saw Cardiology in August, wore a heart monitor and never followed up. Patient denies chest pain, headaches and dizziness. Flu-ordered LULÚ Marshall [address], [address], [place], [address], [employer] [facility] [employer] 12/01/2023 13:50:11 OBGyn Episode No OBEpisode recorded.
--- OUTSIDE RECORDS SUMMARY | 2024-03-16 13:52 | XMS_ITS ---
Author Organization [facility] [place] [address] Address [address] [place] [address] Care Team Providers Care Mica Miner Name Role Phone Aletha Hinojosa MD Unavailable Darwin Lebron RN Unavailable Jerome Kapadia NP Unavailable Radha Boston MD Unavailable Markie Palmer DO Unavailable [phone] Margarito Fong NP Primary Care Provider [phone] Transplant Episode Lung Candidate [facility] ([place], [place]) - [facility] Evaluation began on 04/28/2021 Marked as Ongoing Follow Up on 05/01/2021 Lung CoordinatorDarwin Lebron RN Fax: N/A Email: N/A Scores Score Value Updated Exceptions/Reas ons CPRA Not available LAS [phone] 05/01/2021 [facility] 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
--- OUTSIDE RECORDS SUMMARY | 2024-03-16 13:52 | XMS_ITS | Clinical Summary ---
Author Organization [facility] Address [address] [place] [address] Care Team Providers Care White Metal Corrosion Proofer Name Role Phone Margarito Fong APRN-ENTERTAINMENT CENTRE MANAGER Primary Care Provider Source Comments [facility],non-owned Affiliates and Associated Physician Practices is amultiple site organization consisting of ambulatory clinics and hospital sitesin [place], [place], [place] and [place]. This disclosure is being madepursuant to the Care Everywhere program and may not contain all information available regarding this patient. Last updated 17.[facility] [employer] Social History Tobacco Use Types Packs/Day Years [...] 07/16/2016 10:50 PM CDT Plan of Treatment Health Maintenance Due Date Last Done Comments COLOGUARD (AGES 45-75) - COL ON CA SCREENING 1962 COLON MONITORING 1962 COLONOSCOPY - COLON CA SCREENING 1962 CT COLONOGRAPHY - COLON CA SCREENING 1962 Colorectal Cancer Screening 1962 FIT - COLON CA SCREENING 1962 FLEX SIG - COLON CA SCREENING 1962 LIPID TESTING 1962 MAMMOGRAM 1962 PAP SMEAR 1962 HIV SCREENING 1977 HEPATITIS C SCREENING 07/24/1980 DTAP/TDAP/TD VACCINES (1 - Tdap) 1981 PNEUMOCOCCAL VACCINE 50+ (1 of 1 - PCV) 2012 ZOSTER VACCINE (1 of 2) 2012 COVID-19 VACCINE (1 - 2023-2 5 season) 2023 INFLUENZA VACCINE (#1) 2023 DEPRESSION SCREENING 02/23/2024 Respiratory Syncytial Virus (RSV) Vaccine Pt: or over 60 yrs (1 - 1-dose 75+ series) 2037 HEPATITIS B VACCINE Aged Out No longe r eligible based on patient's age to complete this topic HIB VACCINE Aged Out No longer eligi ble based on patient's age to complete this topic HPV VACCINE Aged Out No longer eligi ble based on patient's age to complete this topic MENINGOCOCCAL (Group B) VACCINE Aged Out No longer eligible based on patient's age to complete this topic MENINGOCOCCAL VACCINE Aged Out No brea hernan eligible based on patient's age to complete this topic PNEUMOCOCCAL VACCINE Aged Out No long er eligible based on patient's age to complete this topic Care Teams White Metal Corrosion Proofer Relationship Specialty Start Date End Date Margarito Fong, RECYCLING WORKER-ENTERTAINMENT CENTRE MANAGER [address] [place] [address] PCP - General 07/22/18
== END 2024-03-13 13:55 | disposition home or self-care (01) ==
PROVIDERS: PCP Family Medicine; Visit Provider Nurse Practitioner Family
DX: Z12.2 Encounter for screening for malignant neoplasm of respiratory organs (principal); Z87.891 Personal history of nicotine dependence
CPT/HCPCS: 71271

== ENCOUNTER 2024-04-05 15:32 | Emergency (ER) | payer MEDICARE, SELFPAY ==
--- NOTE | ~2024-04-05 | XR_ITS ---
HISTORY: fall YESTERDAY, injury COMPARISON: None TECHNIQUE: 3 views of the right shoulder were performed FINDINGS: No acute fracture. The glenohumeral and acromioclavicular joint space is maintained The visualized portion of the adjacent right lung is clear. The humeral head is well seated within the glenoid fossa. Extra-articular ossification projecting over the region of the supraspinatus tendon, suggesting calci fic tendinitis. IMPRESSION: No acute fracture or anterior dislocation. Findings suggesting calcific tendinitis, as detailed above. Reviewed, dictated and finalized at location A. [facility]
--- OUTSIDE RECORDS SUMMARY | 2024-04-05 15:35 | XMS_ITS | Referral Summary ---
Author Organization [facility] Address [address] [place] [address] Care Team Providers Care Nurse Emergency Name Role Phone Margarito Fong APRN-LOMBARDI DEVELOPER Primary Care Provider Source Comments [facility],non-owned Affiliates and Associated Physician Practices is amultiple site organization consisting of ambulatory clinics and hospital sitesin [place], [place], [place] and [place]. This disclosure is being madepursuant to the Care Everywhere program and may not contain all information available regarding this patient. Last updated 17.[facility] [employer] Social History Tobacco Use Types Packs/Day Years Used Date Smoking Tobacco: Never Assessed Sex and Gender Information Value Date Recorded Sex Assigned at Not on file Gender Identity Not on file Sexual Orientation Not on file Last Filed Vital Signs Vital Sign Reading Time Taken Comments Blood Pressure 136/88 07/17/2016 3:40 AM CDT Pulse 73 07/17/2016 3:40 AM CDT Temperature 36.8 C (98.3 F) 07/16/2016 10:50 PM CDT Respiratory Rate 19 07/17/2016 2:50 AM CDT Oxygen Saturation 97% 07/17/2016 3:40 AM CDT Inhaled Oxygen Concentration - - Weight 77.1 kg (170 lb) 07/16/2016 10:50 PM CDT Height 167.6 cm (5' 6 ) 07/16/2016 10:50 PM CDT Body Mass Index 27.44 07/16/2016 10:50 PM CDT Plan of Treatment Not on file Care Teams Nurse Emergency Relationship Specialty Start Date End Date Margarito Fong, HOSPITALIST-LOMBARDI DEVELOPER [address] [place] [address] [place] [id number] PCP - General 07/22/18
--- OUTSIDE RECORDS SUMMARY | 2024-04-05 15:35 | XMS_ITS | Clinical Summary ---
Author Organization [facility] Address [address] [place] [address] Care Team Providers Care Garbage Collection Supervisor Name Role Phone Margarito Fong APRN-BABY STROLLER RENTAL CLERK Primary Care Provider Source Comments [facility],non-owned Affiliates and Associated Physician Practices is amultiple site organization consisting of ambulatory clinics and hospital sitesin [place], [place], [place] and [place]. This disclosure is being madepursuant to the Care Everywhere program and may not contain all information available regarding this patient. Last updated 17.[facility] [employer] Social History Tobacco Use Types Packs/Day Years [...] age to complete this topic Care Teams Garbage Collection Supervisor Relationship Specialty Start Date End Date Margarito Fong, SALESPERSON [employer]-BABY STROLLER RENTAL CLERK [address] [address] PCP - General 07/22/18
--- OUTSIDE RECORDS SUMMARY | 2024-04-05 15:35 | XMS_ITS ---
Author Organization [facility] [address] Address [address] [place] [address] Care Team Providers Care Credit Rating Inspector Name Role Phone Aletha Hinojosa MD Unavailable Darwin Lebron RN Unavailable Jerome Kapadia NP Unavailable Radha Boston MD Unavailable Markie Palmer DO Unavailable [phone] Margarito Fong NP Primary Care Provider [phone] Transplant Episode Lung Candidate [facility] ([place], [place]) - [facility] Evaluation began on 04/28/2021 Marked as Ongoing Follow Up on 05/01/2021 Lung CoordinatorDarwin Lebron RN Fax: N/A Email: N/A Scores Score Value Updated Exceptions/Reas ons CPRA Not available LAS [phone] 05/01/2021 [facility] 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
--- OUTSIDE RECORDS SUMMARY | 2024-04-05 15:35 | XMS_ITS | Data Portability ---
Author Organization [facility] [employer], Main Office Address [address] [place] [address] Assessment No assessment recorded. Plan of Treatment Reminders Order Date Submit Date Provider Last Modified By Organization Details Last Modified Time Details Appointments None recorded . Lab vitamin D, 25-hydro xy, total, serum 2024 025 [email or web address] [facility] (Lab), [address] [place], [address], 5 09:37:21 CBC w/ auto diff 2024 025 [facility], [address] [place], [address], 5 19:31:00 CMP, serum or plasma 2024 025 [facility], [address] [place], [address], 5 19:39:00 lipid panel, serum 2024 025 [facility], [address] [place], [address], 5 19:39:05 Referral cardiolo gist referral - Please call patient to schedule an appointm ent. Thank you. 2023 024 [email or web address] Teo Concepcion MD, [address] [facility] [address], [place], [address], 4 08:42:07 Procedures None recorded . Surgeries None recorded . Imaging MAMMO, screenin g, digital, bilatera l - Please call patient to schedule . 2024 025 [facility] ([facility] Sched[facility]), [address] [place], [address], 17:20:41 bone density - Please call patient to schedule . 2024 025 [email or web address] [facility], [address], [place], [address], 12:45:27 Medication Orders Zithroma x Z-Manuel 250 mg tablet 2023 024 [id number], [address], [place], [place], [id number], 10:17:08 hydrochl orothiaz glenna 12.5 mg tablet 2023 024 [id number], [address], [place], [place], [id number], 10:09:25 amlodipi ne 10 mg tablet 2024 025 [facility] (Now [facility]), [address], [place], [address], 10:59:59 Patient TargetsNo targets recorded. Patient InstructionsNo instructions recorded. 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 Thank you. Referring Physician: Margarita Chaudhary, Family Medicine, Encounter Date: 05/26/2023 Results Created Date Observation Date Name Description Value Unit Range Abnormal Flag Note LastModifiedBy Organization Detail LastModifiedTime 05/18/19 24 05/18/2023 URINA LYSIS COMPL ETE/I RIS W/RFX color LIGHT- YELLOW Not Available [facility] (Lab) [address] [place], [address], 05/18/2023 19:41:36 05/18/19 24 05/18/2023 URINA LYSIS COMPL ETE/I RIS W/RFX appear TURBID abnormal Not Available [facility] (Lab) [address] [place], [address], 05/18/2023 19:41:36 05/18/19 24 05/18/2023 URINA LYSIS COMPL ETE/I RIS W/RFX specific gravity 1.017 1.001- 1.030 Not Available [facility] (Lab) [address] [place], [address], 05/18/2023 19:41:36 05/18/19 24 05/18/2023 URINA LYSIS COMPL ETE/I RIS W/RFX pH 6.0 pH_un its 5.0-9. 0 Not Available [facility] (Lab) [address] [place], [address], 05/18/2023 19:41:36 05/18/19 24 05/18/2023 URINA LYSIS COMPL ETE/I RIS W/RFX leukocytes 25 bro/u L negati ve- abnormal Not Available [facility] (Lab) [address] [place], [address], 05/18/2023 19:41:36 05/18/19 24 05/18/2023 URINA LYSIS COMPL ETE/I RIS W/RFX nitrite NEGATI VE negati ve- Not Available [facility] (Lab) [address] [place], [address], 05/18/2023 19:41:36 05/18/19 24 05/18/2023 URINA LYSIS COMPL ETE/I RIS W/RFX protein NEGATI VE mg/dL negati ve- Not Available [facility] (Lab) [address] [place], [address], 05/18/2023 19:41:36 05/18/19 24 05/18/2023 URINA LYSIS COMPL ETE/I RIS W/RFX glucose NORMAL mg/dL normal - Not Available [facility] (Lab) [address] [place], [address], 05/18/2023 19:41:36 05/18/19 24 05/18/2023 URINA LYSIS COMPL ETE/I RIS W/RFX ketones NEGATI VE mg/dL negati ve- Not Available [facility] (Lab) [address] [place], [address], 05/18/2023 19:41:36 05/18/19 24 05/18/2023 URINA LYSIS COMPL ETE/I RIS W/RFX urobilinogen NORMAL mg/dL normal - Not Available [facility] (Lab) [address] [place], [address], 05/18/2023 19:41:36 05/18/19 24 05/18/2023 URINA LYSIS COMPL ETE/I RIS W/RFX bilirubin NEGATI VE mg/dL negati ve- Not Available [facility] (Lab) [address] [place], [address], 05/18/2023 19:41:36 05/18/19 24 05/18/2023 URINA LYSIS COMPL ETE/I RIS W/RFX blood NEGATI VE mg/dL negati ve- Not Available [facility] (Lab) [address] [place], [address], 05/18/2023 19:41:36 05/18/19 24 05/18/2023 URINA LYSIS COMPL ETE/I RIS W/RFX white blood cells 9-20 /i??h pfi?? 0-8 abnormal Not Available [facility] (Lab) [address] [place], [address], 05/18/2023 19:41:36 05/18/19 24 05/18/2023 URINA LYSIS COMPL ETE/I RIS W/RFX red blood cells 0-4 /i??h pfi?? 0-4 Not Available [facility] (Lab) [address] [place], [address], 05/18/2023 19:41:36 05/18/19 24 05/18/2023 URINA LYSIS COMPL ETE/I RIS W/RFX bacteria OCCASI ONAL abnormal Not Available [facility] (Lab) [address] [place], [address], 05/18/2023 19:41:36 05/18/19 24 05/18/2023 URINA LYSIS COMPL ETE/I RIS W/RFX mucous OCCASI ONAL /i??l pfi?? abnormal Not Available [facility] (Lab) [address] [place], [address], 05/18/2023 19:41:36 05/18/19 24 05/18/2023 URINA LYSIS COMPL ETE/I RIS W/RFX squamous epithelial PACKED FIELD /i??l pfi?? abnormal Not Available [facility] (Lab) [address] [place], [address], 05/18/2023 19:41:36 05/18/19 24 05/18/2023 urina lysis , dipst ick Leukocytes (reference range: negative bro/ l) Small Not Available [facility] [address], [place], [address], 05/17/2023 13:49:13 05/18/19 24 05/18/2023 urina lysis , dipst ick Nitrite (reference rage: negative mg/dl) negati ve Not Available [facility] [address], [place], [address], 05/17/2023 13:49:13 05/18/19 24 05/18/2023 urina lysis , dipst ick Urobilinogen (reference range: 0.2-1 mg/dl) 0.2 Not Available [address], [place], [address], 05/17/2023 13:49:13 05/18/1905/18/2023 urina lysis , dipst ick Protein (reference range: negative mg/dl) Negati ve Not Available [address], [place], [address], 05/17/2023 13:49:13 05/18/1905/18/2023 urina lysis , dipst ick pH (reference range: 5-7) 6.0 Not Available [address], [place], [address], 05/17/2023 13:49:13 05/18/1905/18/2023 urina lysis , dipst ick Blood (reference range: negative Bry/ l) Non-He molyze d: Trace Not Available [address], [place], [address], 05/17/2023 13:49:13 05/18/1905/18/2023 urina lysis , dipst ick Specific [place] (reference range: 1.005-1.030) 1.020 Not Available [address], [place], [address], 05/17/2023 13:49:13 05/18/1905/18/2023 urina lysis , dipst ick Ketone (reference range: negative mg/dl) Negati ve Not Available [address], [place], [address], 05/17/2023 13:49:13 05/18/1905/18/2023 urina lysis , dipst ick Bilirubin (reference range: negative mg/dl) Negati ve Not Available [address], [place], [address], 05/17/2023 13:49:13 05/18/19 24 05/18/2023 urina lysis , dipst ick Glucose (reference range: negative mg/dl) Negati ve Not Available [address], [place], [address], 05/17/2023 13:49:13 05/18/1905/18/2023 urina lysis , dipst ick Appearance Clear Not Available [address], [place], [address], 05/17/2023 13:49:13 05/18/1905/18/2023 urina lysis , dipst ick Color Yellow Not Available [address], [place], [address], 05/17/2023 13:49:13 03/24/19 25 03/24/2024 CBC/C OMPLE TE BLD COUNT W/DIF F white blood cells 10.3 x10'3 /uL 4.2-10 .8 Not Available [facility] (Lab) [address] [place], [address], 03/24/2024 19:31:00 03/24/19 25 03/24/2024 CBC/C OMPLE TE BLD COUNT W/DIF F red blood cells 5.05 x10'6 /uL 3.80-5 .20 Not Available [facility] (Lab) [address] [place], [address], 03/24/2024 19:31:00 03/24/19 25 03/24/2024 CBC/C OMPLE TE BLD COUNT W/DIF F hemoglobin 15.0 g/dL 12.0-1 5.6 Not Available [facility] (Lab) [address] [place], [address], 03/24/2024 19:31:00 03/24/19 25 03/24/2024 CBC/C OMPLE TE BLD COUNT W/DIF F hematocrit 45.0 % 35.7-4 5.7 Not Available [facility] (Lab) [address] [place], [address], 03/24/2024 19:31:00 03/24/19 25 03/24/2024 CBC/C OMPLE TE BLD COUNT W/DIF F mean red cell volume 89.1 fL 82.0-9 9.0 Not Available [facility] (Lab) [address] [place], [address], 03/24/2024 19:31:00 03/24/19 25 03/24/2024 CBC/C OMPLE TE BLD COUNT W/DIF F mean red cell hemoglobin 29.7 pg 27.0-3 3.0 Not Available [facility] (Lab) [address] [place], [address], 03/24/2024 19:31:00 03/24/19 25 03/24/2024 CBC/C OMPLE TE BLD COUNT W/DIF F mean RBC HGB concentratio n 33.3 g/dL 31.0-3 6.0 Not Available [facility] (Lab) [address] [place], [address], 03/24/2024 19:31:00 03/24/19 25 03/24/2024 CBC/C OMPLE TE BLD COUNT W/DIF F red cell distribution width 13.2 % 11.8-1 5.5 Not Available [facility] (Lab) [address] [place], [address], 03/24/2024 19:31:00 03/24/19 25 03/24/2024 CBC/C OMPLE TE BLD COUNT W/DIF F platelets 393 x10'3 /uL 150-40 0 Not Available [facility] (Lab) [address] [place], [address], 03/24/2024 19:31:00 03/24/19 25 03/24/2024 CBC/C OMPLE TE BLD COUNT W/DIF F mean platelet volume 11.4 fL 9.0-12 .4 Not Available [facility] (Lab) [address] [place], [address], 03/24/2024 19:31:00 03/24/1903/24/2024 CBC/C OMPLE TE BLD COUNT W/DIF F neutrophils 72.6 % 39.0-7 2.0 high Not Available [facility] (Lab) [address] [place], [address], 03/24/2024 19:31:00 03/24/19 25 03/24/2024 CBC/C OMPLE TE BLD COUNT W/DIF F lymphocytes 15.3 % 16.0-4 7.0 low Not Available [facility] (Lab) [address] [place], [address], 03/24/2024 19:31:00 03/24/19 25 03/24/2024 CBC/C OMPLE TE BLD COUNT W/DIF F monocytes 7.6 % 5.0-12 .0 Not Available [facility] (Lab) [address] [place], [address], 03/24/2024 19:31:00 03/24/19 25 03/24/2024 CBC/C OMPLE TE BLD COUNT W/DIF F eosinophils 3.5 % 1.0-7. 0 Not Available [facility] (Lab) [address] [place], [address], 03/24/2024 19:31:00 03/24/19 25 03/24/2024 CBC/C OMPLE TE BLD COUNT W/DIF F basophils 0.5 % 0.0-2. 0 Not Available [facility] (Lab) [address] [place], [address], 03/24/2024 19:31:00 03/24/19 25 03/24/2024 CBC/C OMPLE TE BLD COUNT W/DIF F immature granulocytes 0.5 % 0.00-0 .50 Not Available [facility] (Lab) [address] [place], [address], 03/24/2024 19:31:00 03/24/19 25 03/24/2024 CBC/C OMPLE TE BLD COUNT W/DIF F neutrophils, absolute count 7.50 x10'3 /uL 1.5-8. 0 Not Available [facility] (Lab) [address] [place], [address], 03/24/2024 19:31:00 03/24/19 25 03/24/2024 CBC/C OMPLE TE BLD COUNT W/DIF F lymphocytes, absolute count 1.58 x10'3 /uL 1.07-3 .43 Not Available [facility] (Lab) [address] [place], [address], 03/24/2024 19:31:00 03/24/19 25 03/24/2024 CBC/C OMPLE TE BLD COUNT W/DIF F monocytes, absolute count 0.78 x10'3 /uL 0.29-0 .99 Not Available [facility] (Lab) [address] [place], [address], 03/24/2024 19:31:00 03/24/1903/24/2024 CBC/C OMPLE TE BLD COUNT W/DIF F eosinophils, absolute count 0.36 x10'3 /uL 0.02-0 .53 Not Available [facility] (Lab) [address] [place], [address], 03/24/2024 19:31:00 03/24/19 25 03/24/2024 CBC/C OMPLE TE BLD COUNT W/DIF F basophils, absolute count 0.05 x10'3 /uL 0.01-0 .08 Not Available [facility] (Lab) [address] [place], [address], 03/24/2024 19:31:00 03/24/19 25 03/24/2024 CBC/C OMPLE TE BLD COUNT W/DIF F immature granulocytes ,absolute 0.05 x10'3 /uL 0.00-0 .05 Not Available [facility] (Lab) [address] [place], [address], 03/24/2024 19:31:00 03/24/19 25 03/24/2024 CBC/C OMPLE TE BLD COUNT W/DIF F nucleated red blood cells 0.0 % -0 Not Available [facility] (Lab) [address] [place], [address], 03/24/2024 19:31:00 03/24/19 25 03/24/2024 CBC/C OMPLE TE BLD COUNT W/DIF F NRBC# 0.00 x10'3 /uL Not Available [facility] (Lab) [address] [place], [address], 03/24/2024 19:31:00 03/24/19 25 03/24/2024 COMPR EHENS JEET METAB OLIC PANEL sodium 138 mmol/ L 137-14 5 Not Available [facility] (Lab) [address] [place], [address], 03/24/2024 19:39:00 03/24/19 25 03/24/2024 COMPR EHENS JEET METAB OLIC PANEL potassium 4.7 mmol/ L 3.5-5. 1 Not Available [facility] (Lab) [address] [place], [address], 03/24/2024 19:39:00 03/24/19 25 03/24/2024 COMPR EHENS JEET METAB OLIC PANEL chloride 103 mmol/ L 98-107 Not Available [facility] (Lab) [address] [place], [address], 03/24/2024 19:39:00 03/24/19 25 03/24/2024 COMPR EHENS JEET METAB OLIC PANEL carbon dioxide 28 mmol/ L 22-30 Not Available [facility] (Lab) [address] [place], [address], 03/24/2024 19:39:00 03/24/19 25 03/24/2024 COMPR EHENS JEET METAB OLIC PANEL anion gap 11.7 mmol/ L 14-22 low Not Available [facility] (Lab) [address] [place], [address], 03/24/2024 19:39:00 03/24/19 25 03/24/2024 COMPR EHENS JEET METAB OLIC PANEL glucose 81 mg/dL 70-99 Not Available [facility] (Lab) [address] [place], [address], 03/24/2024 19:39:00 03/24/19 25 03/24/2024 COMPR EHENS JEET METAB OLIC PANEL BUN 30 mg/dL 8-19 high Not Available [facility] (Lab) [address] [place], [address], 03/24/2024 19:39:00 03/24/19 25 03/24/2024 COMPR EHENS JEET METAB OLIC PANEL creatinine 0.71 mg/dL 0.66-1 .25 Not Available [facility] (Lab) [address] [place], [address], 03/24/2024 19:39:00 03/24/19 25 03/24/2024 COMPR EHENS JEET METAB OLIC PANEL GFR >60 Refer ence Range : [place] GFR Healt hy Adult : >60 [...] of age, a pedia tric GFR calcu lator is avail able on the [facility] websi te: https ://luma w.kid richard.o rg/pr ofess ional s/kdo qi/gf r_cal culat or Not Available [facility] (Lab) [address] [place], [address], 03/24/2024 19:39:00 03/24/19 25 03/24/2024 COMPR EHENS JEET METAB OLIC PANEL alkaline phosphatase 86 U/L 38-126 Not Available [facility] (Lab) [address] [place], [address], 03/24/2024 19:39:00 03/24/19 25 03/24/2024 COMPR EHENS JEET METAB OLIC PANEL alanine aminotransfe rase 11 U/L 0-35 Not Available [facility] (Lab) [address] [place], [address], 03/24/2024 19:39:00 03/24/19 25 03/24/2024 COMPR EHENS JEET METAB OLIC PANEL aspartate aminotransfe rase 26 U/L 15-37 Not Available [facility] (Lab) [address] [place], [address], 03/24/2024 19:39:00 03/24/19 25 03/24/2024 COMPR EHENS JEET METAB OLIC PANEL bilirubin, total 0.80 mg/dL 0.20-1 .30 Not Available [facility] (Lab) [address] [place], [address], 03/24/2024 19:39:00 03/24/19 25 03/24/2024 COMPR EHENS JEET METAB OLIC PANEL calcium 10.2 mg/dL 8.4-10 .2 Not Available [facility] (Lab) [address] [place], [address], 03/24/2024 19:39:00 03/24/19 25 03/24/2024 COMPR EHENS JEET METAB OLIC PANEL total protein 7.1 g/dL 6.3-8. 2 Not Available [facility] (Lab) [address] [place], [address], 03/24/2024 19:39:00 03/24/19 25 03/24/2024 COMPR EHENS JEET METAB OLIC PANEL albumin 4.5 g/dL 3.4-5. 0 Not Available [facility] (Lab) [address] [place], [address], 03/24/2024 19:39:00 03/24/19 25 03/24/2024 COMPR EHENS JEET METAB OLIC PANEL globulin 2.6 g/dL 2.6-4. 2 Not Available [facility] (Lab) [address] [place], [address], 03/24/2024 19:39:00 03/24/19 25 03/24/2024 COMPR EHENS JEET METAB OLIC PANEL A/G ratio 1.7 ratio 1.0-2. 0 Not Available [facility] (Lab) [address] [place], [address], 03/24/2024 19:39:00 03/24/19 25 03/24/2024 LIPID PANEL cholesterol 187 mg/dL 140-19 9 NIH LINDA NSUS RECOM MENDA TION FOR ARIAN STERO L: ADULT CHILD LOW RISK: <200 <170 BORDE RLINE : <200- 239 ----- HIGH RISK: >240 >200 Not Available [facility] (Lab) [address] [place], [address], 03/24/2024 19:39:05 03/24/19 25 03/24/2024 LIPID PANEL triglyceride s 84 mg/dL 0-150 NIH LINDA NSUS REPOR T RECOM MENDA TION FOR TRIGL YCERI GUSTABO: ADULT CHILD LOW RISK: <150 ----- BODER LINE: 150-1 99 ----- HIGH RISK: >200 ----- Not Available [facility] (Lab) [address] [place], [address], 03/24/2024 19:39:05 03/24/19 25 03/24/2024 LIPID PANEL HDL cholesterol 55 mg/dL 40- Not Available [facility] (Lab) [address] [place], [address], 03/24/2024 19:39:05 03/24/19 25 03/24/2024 LIPID PANEL LDL cholesterol, calculated 115 mg/dL 0-130 NIH LINDA NSUS REPOR T [...] WILL NOT BE REPOR RUBIO. Not Available [facility] (Lab) [address] [place], [address], 03/24/2024 19:39:05 03/24/19 25 03/24/2024 VITAM IN D 25-HY DROXY [id number] 25.8 NG/mL 30-100 low Vitam in D Statu s: Defic ient: <20 ng/mL Insuf ficie nt: 20-29 ng/mL Suffi cient : 30-10 0 ng/mL Not Available [facility] (Lab) [address] [place], [address], 03/24/2024 19:55:36 09/09/19 24 09/09/2023 cardi ac monit or No observ ation record ed. [email or web address] [address], [address], 09/14/2023 10:54:53 02/01/20 24 02/01/2024 XR, ankle , 2 view No observ ation record ed. [address] [place], [address], 03/29/2024 08:23:04 03/13/19 25 03/13/2024 LDCT, chest , for lung cance r scree tressa No observ ation record ed. [address], [address], 03/29/2024 08:23:05 Result Notes None recorded. Problems Name Problem SNOMED Code Status Onset Date Resolution Date Notes Provider Name and Address Organization Details Recorded Time Essential hypertensi on 19225087 Active Not Available [facility] 3 10:46:45 Allergic rhinitis 03378801 Active Not Available [facility] 3 10:46:45 Sleep apnea 02342620 Active 2020 on Cpap Not Available [facility] 3 10:46:46 History of hepatitis C 0396683118796 1 Active 2019 Not Available [facility] 3 10:46:46 Hemorrhoid s 91444133 Active 2022 FUNMILAYO Conrad [address], [address], [place], [address] , [facility] [address] [facility] [employer] 3 19:35:44 Osteoarthr itis 081342274 Active 2022 Margarita Chaudhary MD [address], [address], [place], [address] , [facility] [address] [facility] [employer] 3 17:09:54 Chronic obstructiv e pulmonary disease 27775775 Active 2024 Shan Tilley MD [address], [address], [place], [address] , [facility] [address] [facility] [employer] 5 10:31:12 Constipati on 92928213 Active 2024 Shan Tilley MD [address], [address], [place], [address] , [employer] [facility] [employer] 5 10:31:33 Vitamin D deficiency 58238005 Active 2024 Edith Isbell LPN null, [employer] [facility] [employer] 5 09:14:55 Problem Notes None recorded. 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 Medical Equipment None [...] ORAL ROUTE ONCE DAILY FOR 4 DAYS 03/24 completed Not Available Not Available Not Available benzonata te 200 mg capsule TAKE [...] MOUTH DAILY WITH FOOD FOR 5 DAYS 03/24 completed Not Available Not Available Not Available naproxen 250 mg tablet TK 1 [...] Not Available amlodipin e 10 mg tablet TK 1 T PO D active Not Available Not Available No t [...] 1 TABLET BY MOUTH TWICE DAILY NEEDED 03/24 completed Not Available Not Available Not Available hydroxyzi ne HCl 25 mg tablet 05/21 completed Not Available Not Available Not Available ergocalci ferol (vitamin D2) 1,250 mcg (50,000 unit) capsule TAKE 1 CAPSULE BY MOUTH EVERY WEEK active Not Available Not Available No t Available levofloxa mirian 500 mg tablet active [...] BY MOUTH TWICE DAILY FOR 7 DAYS 03/24 completed Not Available Not Available Not Available loratadin e 10 mg tablet TK 1 T PO QD 11/20 completed Not Available Not Available Not Available ipratropi um bromide 0.02 % solution for inhalatio n USE 1 VIAL VIA NEBULIZE R FOUR TIMES DAILY NEEDED active Not Available Not Available No t Available naproxen 500 mg tablet 03/24 completed Not Available Not Available Not Available amoxicill in 875 mg-potass ium clavulana [...] 1 tablet every day by oral route. 03/24 completed Not Available Not Available Not Available Brovana 15 mcg/2 mL solution for [...] Available Not Available No t Available Fluvirin 5899-3856 45 mcg (15 mcg x 3)/0.5 mL [...] active Not Available Not Available Not Avai lable Daliresp 250 mcg tablet 11/24 completed Not [...] BY MOUTH TWICE DAILY FOR 5 DAYS 03/24 completed Not Available Not Available Not Available Vitals Date Recorded Body height Body mass index (BMI) Body weight Body temperature Oxygen saturation Oxygen saturation in Arterial blood by Pulse oximetry Inhaled oxygen flow rate Systolic blood pressure Diastolic blood pressure Provider Name and Address Organization Details Last Updated DateTime 4 167.64 cm 31.5 kg/m2 36317.5 1 g 97.7 [degF] 92 % 92 % 2 L/min 136 mm[Hg] 78 mm[Hg] Shirley Alex RN [facility] 4 14:30:45 Date Recorded Heart rate Provider Name an d Address Organization Details Last Updated DateTime 05/26/2023 93 /min Margarita Chaudhary MD [address] [place] [address] [address], [place], [address], [facility] [facility] 05/26/2023 14:37:44 Date Recorded Body height Body mass index (BMI) Body weight Body temperature Heart rate Oxygen saturation Oxygen saturation in Arterial blood by Pulse oximetry Systolic blood pressure Diastolic blood pressure Provider Name and Address Organization Details Last Updated DateTime 4 167.64 cm 31.5 kg/m2 69283.5 1 g 97.8 [degF] 102 /min 94 % 94 % 142 mm[Hg] 78 mm[Hg] Shirley Alex RN [facility] [facility] 4 10:46:19 Date Recorded Body height Body mass index (BMI) Body weight Body temperature Heart rate Oxygen saturation Oxygen saturation in Arterial blood by Pulse oximetry Systolic blood pressure Diastolic blood pressure Provider Name and Address Organization Details Last Updated DateTime 4 167.64 cm 31.3 kg/m2 01481.9 2 g 97.7 [degF] 97 /min 91 % 91 % 152 mm[Hg] 98 mm[Hg] Shirley lAex RN [facility] appCREAR [facility] 4 09:48:59 Date Recorded Body height Body mass index (BMI) Body weight Oxygen saturation Oxygen saturation in Arterial blood by Pulse oximetry Inhaled oxygen flow rate Heart rate Systolic blood pressure Diastolic blood pressure Provider Name and Address Organization Details Last Updated DateTime 5 167.64 cm 29.9 kg/m2 02475.5 9 g 93 % 93 % 2 L/min 87 /min 140 mm[Hg] 86 mm[Hg] Italia miller [facility] 5 10:07:58 Social History Question Answer Notes LastModified by Organization Details LastModified Time Tobacco Smoking Status Former Smoker quit smoking 2015 Margarita Chaudhary MD [address], [address], [place] 02/24/2023 15:18:35 Do You Have An Advance Directive? No Patient Declined Informatio n. [id number] Information not available 04/22/2022 What Is Your Level Of Alcohol Consumption? None [id number] Information not available 04/22/2022 Do You Wear A Helmet When Biking? Yes [email or web address] Information not available 02/24/2023 What Is Your Level Of Caffeine Consumption? Moderate [id number] Information not available 04/22/2022 In The 14 Days Before Symptom Onset, Have You Had Close Contact With A Laboratory-conf irmed COVID-19 While That Case Was Ill? No Information not available 02/24/2023 In The 14 Days Before Symptom Onset, Have You Had Close Contact With A Person Who Is Under Investigation For COVID-19 While That Person Was Ill? No Information not available 02/24/2023 What Type Of Diet Are You Following? REGULAR [id number] [id number] Information not available 04/22/2022 What Is The Highest Grade Or Level Of School You Have Completed Or The Highest Degree You Have Received? [id number] [email or web address] Information not available 02/24/2023 How Many Days Of Moderate To Strenuous Exercise, Like A Brisk Walk, Did You Do In The Last 7 Days? 7 Information not available 02/24/2023 On Those Days That You Engage In Moderate To Strenuous Exercise, How Many Minutes, On Average, Do You Exercise? 30 Information not available 02/24/2023 Have There Been Any Changes To Your Family Or Social Situation? No [email or web address] Information not available 02/24/2023 What Is The Fluoride Status Of Your Home? Unknown [email or web address] Information not available 02/24/2023 When Did You Quit Smoking? 6-10yearssincelast cigarette Information not available 02/24/2023 Are There Any Guns Present In Your Home? No [email or web address] Information not available 02/24/2023 Do You Use Insect Repellent Routinely? No Information not available 02/24/2023 Where Do You Live? 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 No [email or web address] Information not available 02/24/2023 What Was The Date Of Your Most Recent Tobacco Screening? 02/24/2023 [email or web address] Information not available 02/24/2023 Do You Have Any Pets? Yes [email or web address] Information not available 02/24/2023 What Is Your Relationship Status? [id number] Information not available 04/22/2022 Do You Use Your Seat Belt Or Car Seat Routinely? Yes [email or web address] Information not available 02/24/2023 Do You Have Smoke And Carbon Monoxide Detectors In Your Home? Yes [email or web address] Information not available 02/24/2023 At What Age Did You Start Smoking Tobacco? 11 [email or web address] Information not available 02/24/2023 Are You Passively Exposed To Smoke? No [email or web address] Information not available 02/24/2023 Are There Any Smokers In Your House? No [email or web address] Information not available 02/24/2023 Do You Participate In Social Media? No [email or web address] Information not available 02/24/2023 What Types Of Sporting Activities Do You Participate In? Biking [email or web address] Information not available 02/24/2023 Do You Feel Stressed (tense, Restless, Nervous, Or Anxious, Or Unable To Sleep At Night)? [id number] [email or web address] Information not available 02/24/2023 Do You Use Any Illicit Or Recreational Drugs? No [email or web address] Information not available 02/24/2023 Do You Use Sunscreen Routinely? Yes Information not available 02/24/2023 Has Tobacco Cessation Counseling Been Provided? No [email or web address] Information not available 02/24/2023 How Many Years Have You Smoked Tobacco? 45 Information not available 02/24/2023 Have You Recently Traveled Abroad? No [email or web address] Information not available 02/24/2023 Are You Currently In School? No Information not available 02/24/2023 Do You Have Any Dietary Restrictions? No Information not available 02/24/2023 Do You Or Have You Ever Used Any Other Forms Of Tobacco Or Nicotine? No [email or web address] Information not available 02/24/2023 Sex: Female Functional Status Question Answer Note LastModified by [employer] ion Details LastModified Time What is your exercise level? Occasional Patient stated she occasionally does Silver Sneakers. [id number] Information not available 04/22/2022 Mental Status None recorded. Family History Relationship Description Onset Age of this Age Resolved Age Notes LastModified by Organization Details LastModified Time Mother Heart disease [id number] Not available 04/22/2022 10:42:58 Medical History No [...] Immunizations Vaccine Type Date Status Note Provider Nam e and Address Organization Details Recorded Time influenza, unspecified formulation 2 completed Not Available [facility] 04/22/2022 10:52:13 Influenza, split virus, quadrivalent, preservative 6 completed Not Available [facility] 04/22/2022 10:52:13 pneumococcal polysaccharide PPV23 1 completed Not Available [facility] 04/22/2022 10:52:13 Pneumococcal conjugate PCV 13 9 completed Not Available [facility] 04/22/2022 10:52:13 Influenza, split virus, quadrivalent, PF 7 completed Not Available [facility] 04/22/2022 10:52:13 Tdap 7 completed Not Available [facility] 04/22/2022 10:52:13 COVID-19, mRNA, LNP-S, PF, 100 mcg/0.5mL dose or 50 mcg/0.25mL dose 1 completed Not Available [facility] 04/22/2022 10:52:14 Influenza, split virus, trivalent, PF 4 completed FUNMILAYO Marshall-C [address] [facility], [facility] [address], [place], [address], [facility] [employer] 12/01/2023 13:41:12 Past Encounters Encounter ID Performer Location Encounter Start Date Encounter Closed Date Diagnosis/Indication Diagnosis SNOMED-CT Code Diagnosis ICD10 Code Diagnosis Note [id number] [facility] Primary Care [address] [address] 12/11/2020 00:00:00 12/11/2020 17:46:[id number] [address] 01/28/2022 00:00:00 01/28/2022 14:08:24 [id number] _ATHENA_M IGRATION_ DEFAULT_1 _1 , 02/18/2022 00:00:00 02/18/2022 16:14:[id number] [address] 03/13/2022 00:00:00 03/13/2022 16:36:06 [id number] FUNMILAYO Conrad [facility] Primary [address] [address] 04/23/2022 10:39:43 04/23/2022 12:44:12 Skin lesion 61546807 L98.9 New problemLef t shinConcer elsie for [...] per patient, she was not candidate for [place] system or lung consolidat ion surgery. Hemorrhoids 79504372 K64 .9 Per patient, stable with dietary changes (no popcorn, chips, spicy). [id number] FUNMILAYO Conrad [facility] Primary Care [address] [place] [address] 09/28/2022 09:19:00 09/28/2022 10:19:20 Flank pain 303446598 R10.9 New problemuti vs renal stone vs muscle strainUrin e dip neg in office, but this is not pts first urine of the day.Will send for UA, reflex cx. In the meantime, pt to start flomax and abx, alternate ibuprofen/ acetaminop hen, with tramadol for breakthrou gh pain.Pt to call on Wednesday if no improvemen t. [id number] Margarita Chaudhary MD [facility] Primary Care [address] [place] [address] 12/21/2022 16:40:32 12/21/2022 17:13:14 Pain of left breast 8583146472 N64.4 Over due for mammograml ikely healing abscess, but will check diagnostic mammogram b/l and US left breastcall /return if no improvemen t in 1-2 days or sooner if neededrevi ewed s/s that warrant urgent/luly rgent eval in meantime Osteoarthritis 576264602 M19.90 d/c otc ibuprofeno k to continue heat, topicals, activities as toleratedd iclofenac 75 mg po bid with food prn, avoid other nsaidsf/u in 3 months or sooner if needed [id number] Margarita Chaudhary MD [facility] Primary Care [address] [place] [address] 02/24/2023 14:42:46 02/24/2023 15:28:00 Adult health examination 267213644 Z00.00 Z13.220 Pneumovax 23 done revna r 20 done 2022Recomm end shingles vaccine seriesFlu vaccine yearlyCovi d booster given 12/14Plan pneumovax 23 again age 67Colonosc opy done 2020, repeat 2025 recommende dLDCT done 10/14 done by pulmonaryS creen mammogram orderedChe ck fasting labs Screening mammography 24 394185 Z12.31 Postmenopausal state 764 37936 Z78.0 Vitamin D deficiency 347 45971 E55.9 Prediabetes 449410616 R7 3.03 stable Essential hypertension 13521772 I10 Z79.899 stable [id number] Margarita Chaudhary MD [facility] Primary [place] [address] [facility] [address] [place] [address] 05/18/2023 10:48:42 05/18/2023 16:36:54 [id number] Margarita Chaudhary MD [facility] Primary Care [place] [address] [facility] [address] [place] [address] 05/26/2023 14:23:03 05/26/2023 15:46:42 Chest pain 92978202 R07.9 Reviewed labscardio logy referral givenrevie wed s/s that warrant urgent/luly rgent eval in meantime Essential hypertension 66653997 I10 Z79.899 stablef/u in 6 months [id number] LULÚ Marshall [facility] Primary Care [place] [address] [facility] [address] [place] [address] 11/09/2023 10:37:35 11/09/2023 14:43:38 Acute upper respiratory infection 83538732 J06.9 [id number] LULÚ Marshall [facility] Primary Care [place] [address] [facility] [address] [place] [address] 12/01/2023 09:43:55 12/01/2023 10:46:04 Essential hypertension 70018622 I10 Z79.899 152/98Will start HCTZ as listed below, encouraged patient to follow up with Cardiologi st. Administra tion of influenza vaccine 12388592 Z23 Gastroesop hageal reflux disease without esophagitis 375650270 K21.9 Dyspnea on exertion 6084 5006 R06.09 sees pulmonolog y tomorrow.S uggested patient follow up with Ruby anton as well. [id number] Shan Tilley MD [facility] [address] [place] [address] 03/24/2024 10:00:55 03/24/2024 12:08:19 Allergic rhinitis 12905425 J30.9 under control Chronic ob structive pulmonary disease 00485132 J44.9 under control Essential hypertension 00448623 I10 under control Osteoarthritis 517295264 M19.90 otc Constipation 49709848 K5 9.00 to take otc Adult heal th examination 508245436 Z00.00 Z13.220 Colonoscop y- 2019, Dr. Estrella, ([facility]) , next in 2025Mammo- 2020 (normal)De xa- noneFlu -2022, ovid- all and boostersPn eumovax-2023LDCT- 09/2021 Long-term drug therapy 914244554 Z79.891 Screening mammography 24 395402 Z12.31 Postmenopausal state 764 77748 Z78.0 Health Concerns Section Related Observation LastModified by Organization Detai ls LastModified Time None Recorded Concern Status LastModified by Organization Details LastModified Time None Recorded Advance Directives Directive N: Patient declined informat ion. Payers Encounter Date Sequence Insurance Name Policy Number Policy Jade Covered Member ID Jade Member ID Guarantor Name 05/18/2023 1 [employer] - GOLD [employer]US (MEDICARE REPLACEMENT HMO) Janetsa John Paul Christopher [id number] Janetsa John Paul Christopher 05/26/2023 1 [employer] - G[employer]US (MEDICARE REPLACEMENT HMO) Janet John Paul Christopher [id number] Janet A Ashwin 11/09/2023 1 [employer] - GOLD PLUS (MEDICARE REPLACEMENT HMO) Janet John Paul Christopher [id number] Janet A Ashwin 12/01/2023 1 [employer] - GOLD PLUS (MEDICARE REPLACEMENT HMO) Janet John Paul Christopher [id number] Janet A Ashwin 03/24/2024 1 [employer] - GOLD PLUS (MEDICARE REPLACEMENT HMO) Janetsa John Paul Christopher [id number] Janet Christopher Notes Date Note Type Note Provider Name and Address Organization Details Recorded Time 05/26/2023 text/html Currently on 2 l pm oxygen continuous, feeling well overall. Breathing is at baseline. She has chest pain about 3x per week that can be in right chest, left chest, upper abd. Lasts 3 minutes or so, can be worse when she takes a deep breath. She's not sure if it is heartburn related. Margarita Chaudhary MD [address], [place], [address], [facility] 05/26/2023 14:42:27 11/09/2023 text/html Patient is a [...] mild relief of symptoms. LULÚ Marshall [address], [place], [address], [facility] 11/09/2023 11:00:55 12/01/2023 text/html Patient is a 63 year old female that presents to the office for follow up. Patient reports worsening shortness of breath since having Covid last month. Patient reports she is not able to shower without using her oxygen which is new for her. Patient also reports bilateral lower leg swelling since taking the Paxlovid. Patient sees her Cost And Risk Analysis Manager tomorrow. Patient reports her BP has been running high, she checks it twice daily at home and it has been running 160-170s/100s. Patient saw Cardiology in August, wore a heart monitor and never followed up. Patient denies chest pain, headaches and dizziness. Flu-ordered LULÚ Marshall [address], [place], [address], [facility] 12/01/2023 13:50:11 03/24/2024 text/html Pt is here today for a New Pt appointment. feels good, needs meds refillsPt would like a colonoscopy referral ( [facility] )WINCHER Lucy Delaney was her last physician. Pt is fasting (humana) HTN- under control with medsMeds- amlodipine 10 mg qd COPD- she is using her inhalers everyday, also on o2 as needed.she is seeing pulmonary as well.Meds-Ipratropi um bromide, albuterol inhaler 90 mcg, symbocort 2 puff bid Ex smoker- used to smoke 1/2 ppd, smoked for 35 yrs, quit 7 yrs agoLDCT 03/18, NO nodule Allergies- under control with medsmed-Fluticasone 50 mg skin cancer- seeing derm Shan Tilley MD [address] [facility], [facility] [address], [place], [address], [place] [facility] [employer] 03/24/2024 13:57:34 OBGyn Episode No OBEpisode recorded.
--- OUTSIDE RECORDS SUMMARY | 2024-04-05 15:35 | XMS_ITS | Patient Health Summary ---
Author Organization [facility] Address [address] [place] [address] Care Team Providers Care Meat Team Member Name Role Phone Margarito Fong APRN-DATA KEYER Primary Care Provider Note from [facility],non-owned Affiliates and Associated Physician Practices is amultiple site organization consisting of ambulatory clinics and hospital sitesin [place], [place], [place] and [place]. This disclosure is being madepursuant to the Care Everywhere program and may not contain all information available regarding this patient. Last updated 17.[facility] Social History Tobacco Use Types [...] electronically signed by CHETAN EDEN MD on 07/17/2016 9:47 AM . Narrative 07/17/2016 9:47 AM CDT Exam: XR CHEST PA AND LATERAL Exam Date: 07/17/2016 12:56 AM History: Chest pain Comparison: None. Findings: No acute pathologic opacity, pleural effusion, or pneumothorax is present. There is tenting of the left hemidiaphragm which could reflect scarring in the left lower lung. The cardiomediastinal silhouette is normal. The visible bony thorax is intact. Procedure Note [...] electronically signed by CHETAN EDEN MD on 07/17/2016 9:45 AM . Narrative 07/17/2016 9:45 AM CDT Exam: XR SPINE LUMBAR 2 OR 3 VW, XR SPINE THORACIC 2 VWS Exam Date: 07/17/2016 12:56 AM History: Pain. Comparison: None. Findings: Thoracic spine: Bony alignment is normal. The vertebral body heights and intervertebral disc spaces are preserved. Mild midthoracic degenerative disc disease is present. No acute fracture or subluxation is present. Lumbar spine: Bony alignment is normal. The vertebral body heights and intervertebral disc spaces are preserved. No acute fracture or subluxation is present. Mild [...] electronically signed by CHETAN EDEN MD on 07/17/2016 9:45 AM . Narrative 07/17/2016 9:45 AM CDT Exam: XR SPINE LUMBAR 2 OR 3 VW, XR SPINE THORACIC 2 VWS Exam Date: 07/17/2016 12:56 AM History: Pain. Comparison: None. Findings: Thoracic spine: Bony alignment is normal. The vertebral body heights and intervertebral disc spaces are preserved. Mild midthoracic degenerative disc disease is present. No acute fracture or subluxation is present. Lumbar spine: Bony alignment is normal. The vertebral body heights and intervertebral disc spaces are preserved. No acute fracture or subluxation is present. Mild [...] . Ameena Wang MD [facility] Care Teams Meat Team Member Relationship Specialty Start Date End Date Margarito Fong, INVISIBLE BRACES ORTHODONTIST-DATA KEYER [address] [place] [address] [place] [id number] PCP - General 07/22/18
--- OUTSIDE RECORDS SUMMARY | 2024-04-05 15:35 | XMS_ITS | Clinical Summary ---
Author Organization [facility] [address] Address [address] [place] [address] Care Team Providers Care Rn Hematology Name Role Phone Aletha Hinojosa MD Unavailable Darwin Lebron RN Unavailable Jerome Kapadia NP Unavailable Radha Boston MD Unavailable Markie Palmer DO Unavailable [phone] Margarito Fong NP Primary Care Provider Allergies No known active allergies Medications SYMBICORT [...] (12/11/2020): Added automatically from request for surgery [id number] COPD (chronic obstructive pulmonary disease) 07/2018 HTN [...] place to sleep or slept in a intermediate (including now)? No 04/28/2021 Comments Unknown Sex and Gender Information Value Date Recorded Sex Assigned at Not on file Legal Sex Female 9:53 AM GAS PUMPER Gender Identity Not on file Sexual Orientation Not on file Obstetrics History Last Filed Vital Signs Vital Sign Reading Time Taken Comments Blood Pressure 134/90 08/31/2023 3:06 PM CDT Pulse 90 08/31/2023 3:06 PM CDT Temperature 36.3 C (97.4 F) 04/29/2021 11:56 AM GAS PUMPER Respiratory Rate 18 04/29/2021 11:5 6 AM GAS PUMPER Oxygen Saturation 91% 08/31/2023 3:06 PM CDT [...] 2) 2012 Depression Screening 04/28/2022 04/28/2021, 04/29/19 22 Covid-19 Vaccine (4 - 2023-2 5 season) [...] HEPATITIS PANEL, ACUTE Routine 04/28/2021 8:56 AM GAS PUMPER Pre-transplant evaluation for lung transplant Centrilobular emphysema (CMS/HCC) (HCC) from Last 3 Months or Most Recently Relevant to Health Maintenance Results * (ABNORMAL) Hepatitis panel, acute (04/28/2021 8:56 AM GAS PUMPER) Hep A IgM Nonreactive Nonreactive [facility] Comment: Interpretive Data: If Hep A IgM Ab is reported as Equivocal, a new sample should be drawn in two weeks for testing. Current interpretive data was last revised on 19. Hep B core IgM Nonreactive Nonreactive [facility] Comment: Interpretive Data If HepB Core IgM Ab is reported as Equivocal, a new sample should be drawn in two weeks for testing. Current interpretive data was last revised on 19. Hep C Ab Reactive(A) Nonreactive [facility] Comment:Positive for HCV ant ibodies. This may represent current or past HCV infection. Supplemental molecular testing will be automatically performed to determine current infection status in accordance with current CDC screening recommendations. HepBsAg Nonreactive Nonreactive [facility] Blood 04/28/2021 8:56 AM GAS PUMPER 04/28/2021 9:17 AM GAS PUMPER us Domenico Hannah MD LAB MICROBIOLOGY - GENE RAL ORDERABLES Final Result [facility] [place] [address] from Last 3 Months or Most Recently Relevant to Health Maintenance Insurance [employer] BLUE [employer] MEDICARE PREFERRED HMO PPO [facility] [place] MEDICARE [place] MEDICARE HMO Care Teams Rn Hematology Relationship Specialty Start Date End Date Margarito Fong NP [address] [place] [address] PCP - General Internal Medicine 10/22/22 Aletha Hinojosa MD [address] [place] [address] [address] [place] [address] 06/03/17 Darwin Lebron, RN [address] [facility] [address] [place] [address] Health Care Assistant 12/05/20 Jerome Kapadia NP [address] [facility] [address] [place] [address] Nurse Practitioner 04/28/21 Radha Boston MD [address] [facility] [address] [place], [place] [id number] Consulting Physician Cardiology 04/28/21 Markie Palmer DO [address] [place], [place] [id number] Referring Physician Surgery 04/28/21
--- OUTSIDE RECORDS SUMMARY | 2024-04-05 15:35 | XMS_ITS | Referral Summary ---
Author Organization [facility] [address] Address [address] [place] [address] Care Team Providers Care Distribution Accounting Clerk Name Role Phone Aletha Hinojosa MD Unavailable Darwin Lebron RN Unavailable [phone] Jerome Kapadia NP Unavailable Radha Boston MD Unavailable Markie Palmer DO Unavailable [phone] Margarito Fong NP Primary Care Provider Allergies [...] (12/11/2020): Added automatically from request for surgery [id number] COPD (chronic obstructive pulmonary disease) 07/2018 HTN [...] place to sleep or slept in a long-term (including now)? No 04/28/2021 Comments Unknown Sex and Gender Information Value Date Recorded Sex Assigned at Not on file Legal Sex Female 9:53 AM POLE SHAVER HELPER Gender Identity Not on file Sexual Orientation Not on file Last Filed Vital Signs Vital Sign Reading Time Taken Comments Blood Pressure 134/90 08/31/2023 3:06 PM CDT Pulse 90 08/31/2023 3:06 PM CDT Temperature 36.3 C (97.4 F) 04/29/2021 11:56 AM POLE SHAVER HELPER Respiratory Rate 18 04/29/2021 11:5 6 AM POLE SHAVER HELPER Oxygen Saturation 91% 08/31/2023 3:06 PM CDT Inhaled Oxygen Concentration - - Weight 88.4 kg (194 lb 12.8 oz) 08/31/2023 3:06 PM CDT Height 168.9 cm (5' 6.5 ) 08/31/2023 3:06 PM CDT Body Mass Index 30.97 08/31/2023 3:06 PM CDT Plan of Treatment Not on file Procedures Procedure Name Priority Date/Time Associated Diagnosis Comments HEPATITIS PANEL, ACUTE Routine 04/28/2021 8:56 AM POLE SHAVER HELPER Pre-transplant evaluation for lung transplant Centrilobular emphysema (CMS/HCC) (HCC) from Last 3 Months or Most Recently Relevant to Health Maintenance Results * (ABNORMAL) Hepatitis panel, acute (04/28/2021 8:56 AM POLE SHAVER HELPER) Hep A IgM Nonreactive Nonreactive [facility] Comment: Interpretive Data: If Hep A IgM Ab is reported as Equivocal, a new sample should be drawn in two weeks for testing. Current interpretive data was last revised on 19. Hep B core IgM Nonreactive Nonreactive [facility] Comment: Interpretive Data If HepB Core IgM Ab is reported as Equivocal, a new sample should be drawn in two weeks for testing. Current interpretive data was last revised on 19. Hep C Ab Reactive(A) Nonreactive [facility] Comment:Positive for HCV ant ibodies. This may represent current or past HCV infection. Supplemental molecular testing will be automatically performed to determine current infection status in accordance with current CDC screening recommendations. HepBsAg Nonreactive Nonreactive [facility] Blood 04/28/2021 8:56 AM POLE SHAVER HELPER 04/28/2021 9:17 AM POLE SHAVER HELPER Domenico Hannah MD LAB MICROBIOLOGY - GENE [facility] ORDERABLES Final Result [facility] [place] [address] from Last 3 Months or Most Recently Relevant to Health Maintenance Insurance IDPA BLUE ANTHEM MEDICARE PREFERRED HMO PPO [facility] [place] BC[place] MEDICARE [place] HUMANA MEDICARE HMO Care Teams Distribution Accounting Clerk Relationship Specialty Start Date End Date Margarito Fong, CORING MACHINE OPERATOR [address] [facility] [address] [facility] [address] [place] [address] PCP - General Internal Medicine 10/22/22 Aletha Hinojosa MD [address] [facility] [address] [place], [place] [id number] 06/03/17 Darwin Lebron, RN [address] [facility] [address] [place] [address] Sommelier 12/05/20 Jerome Kapadia NP [address] [address] Nurse Practitioner 04/28/21 Radha Boston MD [address] [place] [address] Consulting Physician Cardiology 04/28/21 Markie Palmer DO [address] [facility] [address] [facility] [address] [place] [address] Referring Physician Surgery 04/28/21
[2024-04-05 15:38] VITALS: BP 147/108; PULSE 93; RESP 18; TEMP 36.6; O2SAT 96
--- OUTSIDE RECORDS SUMMARY | 2024-04-05 16:23 | XMS_ITS | Referral Summary ---
Author Organization [facility] Address [address] [place] [address] Care Team Providers Care Clinical Data Associate Name Role Phone Margarito Fong APRN-BOOT TRIMMER Primary Care Provider Source Comments [facility],non-owned Affiliates and Associated Physician Practices is amultiple site organization consisting of ambulatory clinics and hospital sitesin [place], [place], [place] and [place]. This disclosure is being madepursuant to the Care Everywhere program and may not contain all information available regarding this patient. Last updated 17.[facility] [employer] Social History Tobacco Use Types Packs/Day Years [...] of Treatment Not on file Care Teams Clinical Data Associate Relationship Specialty Start Date End Date Margarito Fong, SENIOR ESCROW OFFICER-BOOT TRIMMER [address] [place] [address] [place] [id number] PCP - General 07/22/18
--- OUTSIDE RECORDS SUMMARY | 2024-04-05 16:23 | XMS_ITS | Patient Health Summary ---
Author Organization [facility] Address [address] [facility] [place] [address] Care Team Providers Care Geothermal Heat Pump Machinist Name Role Phone Margarito Fong APRN-BUILDING SURVEYOR Primary Care Provider Note from [facility],non-owned Affiliates and Associated Physician Practices is amultiple site organization consisting of ambulatory clinics and hospital sitesin [place], [place], [place] and [place]. This disclosure is being madepursuant to the Care Everywhere program and may not contain all information available regarding this patient. Last updated 17.[facility] Social History Tobacco Use Types Packs/Day Years [...] . Ameena Wang MD [facility] Care Teams Geothermal Heat Pump Machinist Relationship Specialty Start Date End Date Margarito Fong, MOTEL FOOD SERVICE SUPERVISOR-BUILDING SURVEYOR [address] [place] [address] [place] [id number] PCP - General 07/22/18
--- OUTSIDE RECORDS SUMMARY | 2024-04-05 16:23 | XMS_ITS | Referral Summary ---
Author Organization [facility] [address] Address [address] [place] [address] Care Team Providers Care Health Social Work Professor Name Role Phone Aletha Hinojosa MD Unavailable [phone] Darwin Lebron RN Unavailable Jerome Kapadia NP Unavailable Radha Boston MD Unavailable Markie Palmer DO Unavailable [phone] Margarito Fong NP Primary Care Provider [phone] Allergies No known active allergies Medications SYMBICORT [...] (12/11/2020): Added automatically from request for surgery [id number] COPD (chronic obstructive pulmonary disease) 07/2018 HTN [...] place to sleep or slept in a penitentiary (including now)? No 04/28/2021 Comments Unknown Sex and Gender Information Value Date Recorded Sex Assigned at Not on file Legal Sex Female 9:53 AM HAND DEVELOPER Gender Identity Not on file Sexual Orientation Not on file Last Filed Vital Signs Vital Sign Reading Time Taken Comments Blood Pressure 134/90 08/31/2023 3:06 PM CDT Pulse 90 08/31/2023 3:06 PM CDT Temperature 36.3 C (97.4 F) 04/29/2021 11:56 AM HAND DEVELOPER Respiratory Rate 18 04/29/2021 11:5 6 AM HAND DEVELOPER Oxygen Saturation 91% 08/31/2023 3:06 PM CDT Inhaled Oxygen Concentration - - Weight 88.4 kg (194 lb 12.8 oz) 08/31/2023 3:06 PM CDT Height 168.9 cm (5' 6.5 ) 08/31/2023 3:06 PM CDT Body Mass Index 30.97 08/31/2023 3:06 PM CDT Plan of Treatment Not on file Procedures Procedure Name Priority Date/Time Associated Diagnosis Comments HEPATITIS PANEL, ACUTE Routine 04/28/2021 8:56 AM HAND DEVELOPER Pre-transplant evaluation for lung transplant Centrilobular emphysema (CMS/HCC) (HCC) from Last 3 Months or Most Recently Relevant to Health Maintenance Results * (ABNORMAL) Hepatitis panel, acute (04/28/2021 8:56 AM HAND DEVELOPER) Hep A IgM Nonreactive Nonreactive [facility] [...] on 19. Hep C Ab Reactive(A) Nonreactive [facility] Comment:Positive for HCV ant ibodies. This may represent current or past HCV infection. Supplemental molecular testing will be automatically performed to determine current infection status in accordance with current CDC screening recommendations. HepBsAg Nonreactive Nonreactive [facility] Blood 04/28/2021 8:56 AM HAND DEVELOPER 04/28/2021 9:17 AM HAND DEVELOPER Domenico Hannah MD LAB MICROBIOLOGY - GENE [facility] ORDERABLES Final Result [facility] One [facility] Department [place] [address] from Last 3 Months or Most Recently Relevant to Health Maintenance Insurance IDPA BLUE ANTHEM MEDICARE PREFERRED HMO [facility]PO [facility] BCBS MEDICARE [place] HUMANA MEDICARE HMO Care Teams Health Social Work Professor Relationship Specialty Start Date End Date Margarito Fong, WAREHOUSE OPERATIONS ASSOCIATE [address] [facility] [address] [facility] [address] [place] [address] PCP - General Internal Medicine 10/22/22 Aletha Hinojosa MD [address] [facility] [address] [place], [place] [id number] 06/03/17 Darwin Lebron, RN [address] [facility] [address] [place] [address] Online Tutor 12/05/20 Jerome Kapadia NP [address] [address] Nurse Practitioner 04/28/21 Radha Boston MD [address] [place] [address] Consulting Physician Cardiology 04/28/21 Markie Palmer DO 12 [facility] 162 [facility] [address] [place] [address] Referring Physician Surgery 04/28/21
--- OUTSIDE RECORDS SUMMARY | 2024-04-05 16:23 | XMS_ITS | Clinical Summary ---
Author Organization [facility] Address [address] [place] [address] Care Team Providers Care Consulting Intern Name Role Phone Margarito Fong APRN-BINDERY MANAGER Primary Care Provider Source Comments [facility],non-owned Affiliates and Associated Physician Practices is amultiple site organization consisting of ambulatory clinics and hospital sitesin [place], [place], [place] and [place]. This disclosure is being madepursuant to the Care Everywhere program and may not contain all information available regarding this patient. Last updated 17.[facility] [employer] Social History Tobacco Use Types Packs/Day Years [...] age to complete this topic Care Teams Consulting Intern Relationship Specialty Start Date End Date Margarito Fong, REEL REPAIRER-BINDERY MANAGER [address] [place] [address] PCP - General 07/22/18
--- OUTSIDE RECORDS SUMMARY | 2024-04-05 16:24 | XMS_ITS | Clinical Summary ---
Author Organization [facility] [address] Address [address] [place] [address] Care Team Providers Care Security And Privacy Consultant Name Role Phone Aletha Hinojosa MD Unavailable [phone] Darwin Lebron RN Unavailable Jerome Kapadia NP Unavailable Radha Boston MD Unavailable Markie Palmer DO Unavailable [phone] Margarito Fong NP Primary Care Provider Allergies [...] (12/11/2020): Added automatically from request for surgery [id number] COPD (chronic obstructive pulmonary disease) 07/2018 HTN [...] on file Legal Sex Female 9:53 AM TRACK WORKER Gender Identity Not on file Sexual Orientation Not on file Obstetrics History Last Filed Vital Signs Vital Sign Reading Time Taken Comments Blood Pressure 134/90 08/31/2023 3:06 PM CDT Pulse 90 08/31/2023 3:06 PM CDT Temperature 36.3 C (97.4 F) 04/29/2021 11:56 AM TRACK WORKER Respiratory Rate 18 04/29/2021 11:5 6 AM TRACK WORKER Oxygen Saturation 91% 08/31/2023 3:06 PM CDT [...] HEPATITIS PANEL, ACUTE Routine 04/28/2021 8:56 AM TRACK WORKER Pre-transplant evaluation for lung transplant Centrilobular emphysema (CMS/HCC) (HCC) from Last 3 Months or Most Recently Relevant to Health Maintenance Results * (ABNORMAL) Hepatitis panel, acute (04/28/2021 8:56 AM TRACK WORKER) Hep A IgM Nonreactive Nonreactive [facility] Comment: Interpretive Data: If Hep A IgM Ab is reported as Equivocal, a new sample should be drawn in two weeks for testing. Current interpretive data was last revised on 19. Hep B core IgM Nonreactive Nonreactive [facility] Comment: Interpretive Data If HepB Core IgM Ab is reported as Equivocal, a new sample should be drawn in two weeks for testing. Current interpretive data was last revised on 19. Hep C Ab Reactive(A) Nonreactive [facility] Comment:Positive for HCV ant ibodies. This may represent current or past HCV infection. Supplemental molecular testing will be automatically performed to determine current infection status in accordance with current CDC screening recommendations. HepBsAg Nonreactive Nonreactive [facility] Blood 04/28/2021 8:56 AM TRACK WORKER 04/28/2021 9:17 AM TRACK WORKER us Domenico Hannah MD LAB MICROBIOLOGY - GENE [facility] ORDERABLES Final Result [facility] One [facility] Department [place] [address] from Last 3 Months or Most Recently Relevant to Health Maintenance Insurance IDPA BLUE ANTHEM MEDICARE PREFERRED HMO PPO [facility] BC[place] MEDICARE [place] HUMANA MEDICARE HMO Care Teams Security And Privacy Consultant Relationship Specialty Start Date End Date Margarito Fong NP [address] [place] [address] PCP - General Internal Medicine 10/22/22 Aletha Hinojosa MD [address] [place] [address] [address] [place] [address] 06/03/17 Darwin Lebron, RN [address] [facility] [address] [place] [address] Apple Picker 12/05/20 Jerome Kapadia NP [address] [facility] [address] [place] [address] Nurse Practitioner 04/28/21 Radha Boston MD [address] [facility] [address] [place], [place] [id number] Consulting Physician Cardiology 04/28/21 Markie Palmer DO [address] [facility] [address] [place], [place] [address] Referring Physician Surgery 04/28/21
--- OUTSIDE RECORDS SUMMARY | 2024-04-05 16:24 | XMS_ITS ---
Author Organization [facility] [address] Address [address] [place] [address] Care Team Providers Care Superintendent Marine Name Role Phone Aletha Hinojosa MD Unavailable [phone] Darwin Lebron RN Unavailable [phone] Jerome Kapadia NP Unavailable Radha Boston MD Unavailable Markie Palmer DO Unavailable [phone] Margarito Fong NP Primary Care Provider [phone] Transplant Episode Lung Candidate [facility] ([place], [place]) - [facility] Evaluation began on 04/28/2021 Marked as Ongoing Follow Up on 05/01/2021 Lung CoordinatorDarwin Lebron RN Fax: N/A Email: N/A Scores Score Value Updated Exceptions/Reas ons CPRA Not available LAS [phone] 05/01/2021 [place] Organ Diagnosis Organ Primary Contributory Lung COPD/Emphysema Care Team Name Role Phone Fax Email Darwin Lebron RN Lung Coordinator [phone] N/A N/A Darwin Lebron RN Pre Coordinator [phone] N/A N/A Events Pre-Transplant Referred: 12/05/2020 Evaluation began: 04/28/2021 Committee: 05/01/2021
[2024-04-05] MEDS: HYDROcodone/acetaminophen (*CRX) 5-325 MG TABLET 1 TAB PO (16:53)
--- NOTE | 2024-04-05 17:05 | ED_ITS ---
HPI - Extremity Injury (Upper) General Chief Complaint: Extremity Injury, Upper Stated Complaint: fall yesterday, right shoulder injury Time Seen by Provider: 04/05/24 16:08 History of Present Illness HPI narrative: Patient was reaching for something yesterday, missed then fell, spread her arms out to catch her fall and landed on her right shoulder, has been hurting. Tried some ibuprofen this morning. Related Data Home Medications ?Medication ?Instructions ?Recorded ?Confirmed ?Last Taken ?Type amlodipine 10 mg tablet 10 mg PO DAILY 01/04/19 12/02/23 Unknown History fluticasone propionate 50 1 spray intranasal DAILY 01/04/19 12/02/23 Unknown History mcg/actuation nasal spray,suspension (Flonase Allergy Relief) Allergies Allergy/AdvReac Type Severity Reaction Status Date / Time cephalexin AdvReac Intermediate Cough Verified 12/02/23 14:40 Review of Systems Review of Systems: All systems reviewed & are unremarkable except as noted in HPI and below PMFSH Past Medical History Medical History Bronchiectasis without complication Chronic obstructive pulmonary disease ANGEL (obstructive sleep apnea) Family History Family History Mother Hypertension Other Diabetes mellitus Social History Social History Smoking packs per day: 0.5 Smoking cigarettes per day: 10.0 Years smoked: 40 Smoking pack-years: 20.00 Smoking status: Former smoker Second hand tobacco smoke exposure: Yes Smoking end date: 02/22/15 Additional smoking assessment comments: started smoking at age 14 Alcohol intake: never Lack of Transportation: No Lack of Food: Sometimes True Current Housing: I Have Housing Concerned About Future Housing: No Difficulty Paying Gas/Electric Bills: No Difficulty Paying for Meds: Decline to Answer Currently Unemployed: No Education: High School Diploma/GED Difficulty w/ Childcare or Family Care: No Exam Narrative: EXAMINATION OF ORGAN SYSTEMS/BODY AREAS: Constitutional: Vital signs per nursing GENERAL: Appears uncomfortable HEAD: Normal with no signs of head trauma. EYES: EOMI, conjunctiva normal ENT: Hearing grossly intact LUNGS: Nonlabored breathing. HEART: [Regular rate and rhythm], normal radial pulse ABD: [Soft], [nontender to palpation] EXT: Normal range of motion, no obvious deformity but there is tenderness to the upper right shoulder SKIN: [No rashes or lesions.] NEURO: [Alert and oriented x 3. No gross focal sensory or strength deficits.] PSYCH: Normal affect Course Vital Signs Vital signs: Vital Signs Temperature 97.9 F 04/05/24 15:38 Pulse Rate 93 04/05/24 15:38 Respiratory Rate 18 04/05/24 15:38 Blood Pressure 147/108 H 04/05/24 15:38 Pulse Oximetry 96 04/05/24 15:38 Oxygen Delivery Room Air 04/05/24 15:38 Temperature 97.9 F 04/05/24 15:38 Pulse Rate 93 04/05/24 15:38 Respiratory Rate 18 04/05/24 15:38 Blood Pressure 147/108 H 04/05/24 15:38 Pulse Oximetry 96 04/05/24 15:38 Oxygen Delivery Room Air 04/05/24 15:38 MDM - Extremity Injury (Upper) MDM Narrative Medical decision making narrative: Patient presents after mechanical fall with right shoulder injury she had no o ther signs of tenderness or deformity to either extremity other than tenderness to the right upper shoulder. X-ray on my and radiologist interpretation thankfully does not show any obvious fracture or dislocation. Does show possible calcific tendinitis, will try a course of steroids and have follow-up with Orthopedics with return precautions. Ice provided. Patient agreeable to this plan. Discharge Plan Discharge Clinical Impression: Calcific tendinitis Patient Disposition: Home, Self-Care Condition: Stable Instructions: Calcific Tendinitis (ED) Additional Instructions: Thankfully the x-ray did not show any broken bones, you can try the steroids as prescribed for the inflammation of your joint, and the muscle relaxants for pain. Please follow-up with the orthopedic surgeon, come back for any further issues. Patient Language: Tunisian Prescriptions: New prednisone 20 mg tablet 40 mg PO DAILY 5 Days Qty: 10 0RF methocarbamol 750 mg tablet 750 mg PO TID PRN (Reason: muscle spasm) Qty: 30 0RF No Action albuterol sulfate 2.5 mg /3 mL (0.083 %) solution for nebulization 2.5 mg inhalation Q6H PRN (Reason: shortness of breath or wheezing) Qty: 360 1RF amlodipine 10 mg Tablet 10 mg PO DAILY fluticasone propionate [Flonase Allergy Relief] 50 mcg/actuation Spr ay,Suspension 1 spray INTRANASAL DAILY benzonatate 200 mg capsule 200 mg PO TID PRN (Reason: cough) Qty: 90 1RF ipratropium bromide 0.02 % solution See Rx Instructions .ROUTE .COMPLEX Qty: 900 3RF Dose Instruction: USE 1 VIAL VIA NEBULIZER FOUR TIMES DAILY NEEDED Rx Instructions: USE 1 VIAL VIA NEBULIZER FOUR TIMES DAILY NEEDED Spiriva Respimat 2.5 mcg/actuation mist See Rx Instructions .ROUTE .COMPLEX Qty: 12 3RF Dose Instruction: INHALE 2 PUFFS EVERY MORNING Rx Instructions: INHALE 2 PUFFS EVERY MORNING albuterol sulfate 90 mcg/actuation HFA aerosol inhaler See Rx Instructions .ROUTE .COMPLEX Qty: 54 3RF Dose Instruction: INHALE 1 TO 2 PUFFS EVERY 4 TO 6 HOURS NEEDED FOR SHORTNESS OF BREATH OR WHEEZING Rx Instructions: INHALE 1 TO 2 PUFFS EVERY 4 TO 6 HOURS NEEDED FOR SHORTNESS OF BREATH OR WHEEZING budesonide-formoterol [Symbicort] 160-4.5 mcg/actuation HFA aerosol inhaler 2 puff inhalation Q12H 90 Days Qty: 30.6 3RF Rx Instructions: rinse and spit Follow-up/Referrals: Luke Velasquez MD [Physician] - 2 Days Jarek,Shan Reis MD [Primary Care Provider] -
== END 2024-04-05 16:50 | disposition home or self-care (01) ==
PROVIDERS: Emergency Provider Emergency Medicine; PCP Internal Medicine
DX: M75.31 Calcific tendinitis of right shoulder (principal); J44.9 Chronic obstructive pulmonary disease, unspecified; G47.33 Obstructive sleep apnea (adult) (pediatric); Z87.891 Personal history of nicotine dependence
CPT/HCPCS: 73030; 99283; A9270

== ENCOUNTER 2024-04-11 16:58 | Inpatient (IN) | payer MEDICARE, SELFPAY ==
--- NOTE | ~2024-04-11 | XR_ITS ---
XR abdomen/kub 1V 04/14/2024 12:49 INDICATION: Constipation TECHNIQUE: KUB COMPARISON: 04/20/2018 FINDINGS: Bowel gas pattern is normal. Moderate colonic fecal loading. There is no evidence of free a ir, mass, organomegaly, ascites or obstruction. No abnormal calculi are seen. The bones appear inta ct. IMPRESSION: 1: No acute abdominal abnormality identified. Reviewed, dictated and finalized at location L. LY SERVICES ASSISTANT
--- NOTE | ~2024-04-11 | CT_ITS ---
EXAMINATION: CT abdomen pelvis wo con DATE: 04/11/2024 20:19 INDICATION: Pyelonephritis, hematuria TECHNIQUE: Computed tomography (CT) of the abdomen and pelvis was performed without intravenous contr ast. Automated exposure control and iterative reconstruction technique were employed. The dose-length product was 966.79 mGy-cm. COMPARISON: 04/16/2018. FINDINGS: Lower thorax: Emphysematous change. Lingular blebs. Liver: Normal. Biliary/Gallbladder: Gallbladder is normal. No bile duct dilation. Pancreas: No mass or duct dilation. Spleen: Normal. Adrenals:No mass. Kidneys: No suspicious mass, obstructing stone, or hydronephrosis. Mild left perinephric stranding an d periureteral stranding. Punctate nonobstructing right inferior pole calcification. GI tract: No small or large bowel dilation. Status post appendectomy. Diverticulosis without divertic ulitis. Mesentery/Peritoneum: No ascites, mass, or free air. Retroperitoneum: No mass. Atherosclerotic calcifications of intra-abdominal arterial vessels. Pelvis: Normal appearing urinary bladder, uterus, and left ovary. Likely status post right oophorecto my. Soft Tissues: Small uncomplicated fat-containing umbilical hernia. Right inguinal hernia repair. Bones: No acute osseous finding. IMPRESSION: Asymmetric perinephric and periureteral stranding on the left, may represent pyelonephritis and the a ppropriate clinical context. Reviewed, dictated and finalized at location K. WASHER IMPRESSION: Asymmetric perinephric and periureteral stranding on the left, may represent py elonephritis and the appropriate clinical context.
--- OUTSIDE RECORDS SUMMARY | 2024-04-11 17:01 | XMS_ITS | Data Portability ---
Author Organization [facility] [email or web address], Main Office Address [address] [place] [address] Assessment No assessment recorded. Plan of Treatment Reminders Order Date Submit Date Provider Last Modified By Organization Details Last Modified Time Details Appointments None recorded . Lab vitamin D, 25-hydro xy, total, serum 2024 025 [email or web address] [facility] (Lab), [address] [place], [address], 5 09:37:21 CBC w/ auto diff 2024 025 [facility], [address] [place], [address], 5 19:31:00 CMP, serum or plasma 2024 025 [facility], [address] [place], [address], 5 19:39:00 lipid panel, serum 2024 025 [facility], [address] [place], [address], 5 19:39:05 Referral cardiolo gist referral - Please call patient to schedule an appointm ent. Thank you. 2023 024 [email or web address] Teo Concepcion MD, [address] [facility] [address], [place], [address], 4 08:42:07 Procedures None recorded . Surgeries None recorded . Imaging MAMMO, screenin g, digital, bilatera l - Please call patient to schedule . 2024 025 [facility] ([facility] Call Scheduling), [address] [place], [address], 17:20:41 bone density - Please call patient to schedule . 2024 025 [email or web address] [facility], [address], [place], [address], 12:45:27 Medication Orders amlodipi ne 10 mg tablet 2024 025 [facility] (Now [facility]), [address], [place], [address], 10:59:59 hydrochl orothiaz glenna 12.5 mg tablet 2023 024 [id number], [address], [place], [place], [id number], 10:09:25 Zithroma x Z-Manuel 250 mg tablet 2023 024 [id number], [address], [place], [place], [id number], 10:17:08 Patient TargetsNo targets recorded. Patient InstructionsNo instructions recorded. 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 Thank you. Referring Physician: Margarita Chaudhary, Family Medicine, Encounter Date: 05/26/2023 Results Created Date Observation Date Name Description Value Unit Range Abnormal Flag Note LastModifiedBy Organization Detail LastModifiedTime 05/18/19 24 05/18/2023 URINA LYSIS COMPL ETE/I RIS W/RFX color LIGHT- YELLOW Not Available [facility] (Lab) [address] [place], [address], 05/18/2023 19:41:36 05/18/19 24 05/18/2023 URINA LYSIS COMPL ETE/I RIS W/RFX appear TURBID abnormal Not Available [facility] (Lab) [address] [place], [address], 05/18/2023 19:41:36 05/18/19 24 05/18/2023 URINA LYSIS COMPL ETE/I RIS W/RFX specific gravity 1.017 1.001- 1.030 Not Available [facility] (Lab) [address] [place], [address], 05/18/2023 19:41:36 05/18/19 24 05/18/2023 URINA LYSIS COMPL ETE/I RIS W/RFX pH 6.0 pH_un its 5.0-9. 0 Not Available [facility] (Lab) [address] [place], [address], 05/18/2023 19:41:36 05/18/19 24 05/18/2023 URINA LYSIS COMPL ETE/I RIS W/RFX leukocytes 25 bro/u L negati ve- abnormal Not Available [facility] (Lab) [address] [place], [address], 05/18/2023 19:41:36 05/18/19 24 05/18/2023 URINA LYSIS COMPL ETE/I RIS W/RFX nitrite NEGATI VE negati ve- Not Available [facility] (Lab) [address] [place], [address], 05/18/2023 19:41:36 05/18/19 24 05/18/2023 URINA LYSIS COMPL ETE/I RIS W/RFX protein NEGATI VE mg/dL negati ve- Not Available [facility] (Lab) [address] [place], [address], 05/18/2023 19:41:36 05/18/19 24 05/18/2023 URINA LYSIS COMPL ETE/I RIS W/RFX glucose NORMAL mg/dL normal - Not Available [facility] (Lab) [address] [place], [address], 05/18/2023 19:41:36 05/18/19 24 05/18/2023 URINA LYSIS COMPL ETE/I RIS W/RFX ketones NEGATI VE mg/dL negati ve- Not Available [facility] (Lab) [address] [place], [address], 05/18/2023 19:41:36 05/18/19 24 05/18/2023 URINA LYSIS COMPL ETE/I RIS W/RFX urobilinogen NORMAL mg/dL normal - Not Available [facility] (Lab) [address] [place], [address], 05/18/2023 19:41:36 05/18/19 24 05/18/2023 URINA LYSIS COMPL ETE/I RIS W/RFX bilirubin NEGATI VE mg/dL negati ve- Not Available [facility] (Lab) [address] [place], [address], 05/18/2023 19:41:36 05/18/19 24 05/18/2023 URINA LYSIS COMPL ETE/I RIS W/RFX blood NEGATI VE mg/dL negati ve- Not Available [facility] (Lab) [address] [place], [address], 05/18/2023 19:41:36 05/18/19 24 05/18/2023 URINA LYSIS COMPL ETE/I RIS W/RFX white blood cells 9-20 /i??h pfi?? 0-8 abnormal Not Available [facility] (Lab) [address] [place], [address], 05/18/2023 19:41:36 05/18/19 24 05/18/2023 URINA LYSIS COMPL ETE/I RIS W/RFX red blood cells 0-4 /i??h pfi?? 0-4 Not Available [facility] (Lab) [address] [place], [address], 05/18/2023 19:41:36 05/18/19 24 05/18/2023 URINA LYSIS COMPL ETE/I RIS W/RFX bacteria OCCASI ONAL abnormal Not Available [facility] (Lab) [address] [facility] [place] [place], [address], 05/18/2023 19:41:36 05/18/19 24 05/18/2023 URINA LYSIS COMPL ETE/I RIS W/RFX mucous OCCASI ONAL /i??l pfi?? abnormal Not Available [facility] (Lab) [address] [place], [address], 05/18/2023 19:41:36 05/18/19 24 05/18/2023 URINA LYSIS COMPL ETE/I RIS W/RFX squamous epithelial PACKED FIELD /i??l pfi?? abnormal Not Available [facility] (Lab) [address] [facility] [place] [place], [address], 05/18/2023 19:41:36 05/18/19 24 05/18/2023 urina lysis , dipst ick Leukocytes (reference range: negative bro/ l) Small Not Available [facility] [address], [place], [address], 05/17/2023 13:49:13 05/18/19 24 05/18/2023 urina lysis , dipst ick Nitrite (reference rage: negative mg/dl) negati ve Not Available [facility] [address], [place], [address], 05/17/2023 13:49:13 05/18/19 24 05/18/2023 urina lysis , dipst ick Urobilinogen (reference range: 0.2-1 mg/dl) 0.2 Not Available [address], [place], [address], 05/17/2023 13:49:13 05/18/1905/18/2023 urina lysis , dipst ick Protein (reference range: negative mg/dl) Negati ve Not Available [address], [place], [address], 05/17/2023 13:49:13 05/18/1905/18/2023 urina lysis , dipst ick pH (reference range: 5-7) 6.0 Not Available [address], [place], [address], 05/17/2023 13:49:13 05/18/1905/18/2023 urina lysis , dipst ick Blood (reference range: negative Bry/ l) Non-He molyze d: Trace Not Available [address], [place], [address], 05/17/2023 13:49:13 05/18/1905/18/2023 urina lysis , dipst ick Specific [place] (reference range: 1.005-1.030) 1.020 Not Available [address], [place], [address], 05/17/2023 13:49:13 05/18/1905/18/2023 urina lysis , dipst ick Ketone (reference range: negative mg/dl) Negati ve Not Available [address], [place], [address], 05/17/2023 13:49:13 05/18/1905/18/2023 urina lysis , dipst ick Bilirubin (reference range: negative mg/dl) Negati ve Not Available [address], [place], [address], 05/17/2023 13:49:13 05/18/19 24 05/18/2023 urina lysis , dipst ick Glucose (reference range: negative mg/dl) Negati ve Not Available [address], [place], [address], 05/17/2023 13:49:13 05/18/1905/18/2023 urina lysis , dipst ick Appearance Clear Not Available [address], [place], [address], 05/17/2023 13:49:13 05/18/1905/18/2023 urina lysis , dipst ick Color Yellow Not Available [address], [place], [address], 05/17/2023 13:49:13 03/24/19 25 03/24/2024 CBC/C OMPLE TE BLD COUNT W/DIF F white blood cells 10.3 x10'3 /uL 4.2-10 .8 Not Available [facility] (Lab) [address] [place], [address], 03/24/2024 19:31:00 03/24/19 25 03/24/2024 CBC/C OMPLE TE BLD COUNT W/DIF F red blood cells 5.05 x10'6 /uL 3.80-5 .20 Not Available [facility] (Lab) [address] [place], [address], 03/24/2024 19:31:00 03/24/19 25 03/24/2024 CBC/C OMPLE TE BLD COUNT W/DIF F hemoglobin 15.0 g/dL 12.0-1 5.6 Not Available [facility] (Lab) [address] [facility] [place], [address], 03/24/2024 19:31:00 03/24/19 25 03/24/2024 CBC/C OMPLE TE BLD COUNT W/DIF F hematocrit 45.0 % 35.7-4 5.7 Not Available [facility] (Lab) [address] [facility] [place], [address], 03/24/2024 19:31:00 03/24/19 25 03/24/2024 CBC/C OMPLE TE BLD COUNT W/DIF F mean red cell volume 89.1 fL 82.0-9 9.0 Not Available [facility] (Lab) [address] [place], [address], 03/24/2024 19:31:00 03/24/19 25 03/24/2024 CBC/C OMPLE TE BLD COUNT W/DIF F mean red cell hemoglobin 29.7 pg 27.0-3 3.0 Not Available [facility] (Lab) [address] [place], [address], 03/24/2024 19:31:00 03/24/19 25 03/24/2024 CBC/C OMPLE TE BLD COUNT W/DIF F mean RBC HGB concentratio n 33.3 g/dL 31.0-3 6.0 Not Available [facility] (Lab) [address] [place], [address], 03/24/2024 19:31:00 03/24/19 25 03/24/2024 CBC/C OMPLE TE BLD COUNT W/DIF F red cell distribution width 13.2 % 11.8-1 5.5 Not Available [facility] (Lab) [address] [place], [address], 03/24/2024 19:31:00 03/24/19 25 03/24/2024 CBC/C OMPLE TE BLD COUNT W/DIF F platelets 393 x10'3 /uL 150-40 0 Not Available [facility] (Lab) [address] [place], [address], 03/24/2024 19:31:00 03/24/19 25 03/24/2024 CBC/C OMPLE TE BLD COUNT W/DIF F mean platelet volume 11.4 fL 9.0-12 .4 Not Available [facility] (Lab) [address] [place], [address], 03/24/2024 19:31:00 03/24/1903/24/2024 CBC/C OMPLE TE BLD COUNT W/DIF F neutrophils 72.6 % 39.0-7 2.0 high Not Available [facility] (Lab) [address] [place], [address], 03/24/2024 19:31:00 03/24/19 25 03/24/2024 CBC/C OMPLE TE BLD COUNT W/DIF F lymphocytes 15.3 % 16.0-4 7.0 low Not Available [facility] (Lab) [address] [place], [address], 03/24/2024 19:31:00 03/24/19 25 03/24/2024 CBC/C OMPLE TE BLD COUNT W/DIF F monocytes 7.6 % 5.0-12 .0 Not Available [facility] (Lab) [address] [place], [address], 03/24/2024 19:31:00 03/24/19 25 03/24/2024 CBC/C OMPLE TE BLD COUNT W/DIF F eosinophils 3.5 % 1.0-7. 0 Not Available [facility] (Lab) [address] [place], [address], 03/24/2024 19:31:00 03/24/19 25 03/24/2024 CBC/C OMPLE TE BLD COUNT W/DIF F basophils 0.5 % 0.0-2. 0 Not Available [facility] (Lab) [address] [place], [address], 03/24/2024 19:31:00 03/24/19 25 03/24/2024 CBC/C OMPLE TE BLD COUNT W/DIF F immature granulocytes 0.5 % 0.00-0 .50 Not Available [facility] (Lab) [address] [place], [address], 03/24/2024 19:31:00 03/24/19 25 03/24/2024 CBC/C OMPLE TE BLD COUNT W/DIF F neutrophils, absolute count 7.50 x10'3 /uL 1.5-8. 0 Not Available [facility] (Lab) [address] [place], [address], 03/24/2024 19:31:00 03/24/19 25 03/24/2024 CBC/C OMPLE TE BLD COUNT W/DIF F lymphocytes, absolute count 1.58 x10'3 /uL 1.07-3 .43 Not Available [facility] (Lab) [address] [place], [address], 03/24/2024 19:31:00 03/24/19 25 03/24/2024 CBC/C OMPLE TE BLD COUNT W/DIF F monocytes, absolute count 0.78 x10'3 /uL 0.29-0 .99 Not Available [facility] (Lab) [address] [place], [address], 03/24/2024 19:31:00 03/24/1903/24/2024 CBC/C OMPLE TE BLD COUNT W/DIF F eosinophils, absolute count 0.36 x10'3 /uL 0.02-0 .53 Not Available [facility] (Lab) [address] [place], [address], 03/24/2024 19:31:00 03/24/19 25 03/24/2024 CBC/C OMPLE TE BLD COUNT W/DIF F basophils, absolute count 0.05 x10'3 /uL 0.01-0 .08 Not Available [facility] (Lab) [address] [place], [address], 03/24/2024 19:31:00 03/24/19 25 03/24/2024 CBC/C OMPLE TE BLD COUNT W/DIF F immature granulocytes ,absolute 0.05 x10'3 /uL 0.00-0 .05 Not Available [facility] (Lab) [address] [place], [address], 03/24/2024 19:31:00 03/24/19 25 03/24/2024 CBC/C OMPLE TE BLD COUNT W/DIF F nucleated red blood cells 0.0 % -0 Not Available [facility] (Lab) [address] [place], [address], 03/24/2024 19:31:00 03/24/19 25 03/24/2024 CBC/C OMPLE TE BLD COUNT W/DIF F NRBC# 0.00 x10'3 /uL Not Available [facility] (Lab) [address] [place], [address], 03/24/2024 19:31:00 03/24/19 25 03/24/2024 COMPR EHENS JEET METAB OLIC PANEL sodium 138 mmol/ L 137-14 5 Not Available [facility] (Lab) [address] [place], [address], 03/24/2024 19:39:00 03/24/19 25 03/24/2024 COMPR EHENS JEET METAB OLIC PANEL potassium 4.7 mmol/ L 3.5-5. 1 Not Available [facility] (Lab) [address] [place], [address], 03/24/2024 19:39:00 03/24/19 25 03/24/2024 COMPR EHENS JEET METAB OLIC PANEL chloride 103 mmol/ L 98-107 Not Available [facility] (Lab) [address] [place], [address], 03/24/2024 19:39:00 03/24/19 25 03/24/2024 COMPR EHENS JEET METAB OLIC PANEL carbon dioxide 28 mmol/ L 22-30 Not Available [facility] (Lab) [address] [place], [address], 03/24/2024 19:39:00 03/24/19 25 03/24/2024 COMPR EHENS JEET METAB OLIC PANEL anion gap 11.7 mmol/ L 14-22 low Not Available [facility] (Lab) [address] [place], [address], 03/24/2024 19:39:00 03/24/19 25 03/24/2024 COMPR EHENS JEET METAB OLIC PANEL glucose 81 mg/dL 70-99 Not Available [facility] (Lab) [address] [place], [address], 03/24/2024 19:39:00 03/24/19 25 03/24/2024 COMPR EHENS JEET METAB OLIC PANEL BUN 30 mg/dL 8-19 high Not Available [facility] (Lab) [address] [place], [address], 03/24/2024 19:39:00 03/24/19 25 03/24/2024 COMPR EHENS JEET METAB OLIC PANEL creatinine 0.71 mg/dL 0.66-1 .25 Not Available [facility] (Lab) [address] [place], [address], 03/24/2024 19:39:00 03/24/19 25 03/24/2024 COMPR EHENS JEET METAB OLIC PANEL GFR >60 Refer ence Range : [place] ge GFR Healt hy Adult : >60 [...] calcu lator is avail able on the [facility] websi te: https :[email or web address] w.kid richard.o rg/pr ofess ional s/kdo qi/gf r_cal culat or Not Available [facility] (Lab) [address] [place], [address], 03/24/2024 19:39:00 03/24/19 25 03/24/2024 COMPR EHENS JEET METAB OLIC PANEL alkaline phosphatase 86 U/L 38-126 Not Available [facility] (Lab) [address] [place], [address], 03/24/2024 19:39:00 03/24/19 25 03/24/2024 COMPR EHENS JEET METAB OLIC PANEL alanine aminotransfe rase 11 U/L 0-35 Not Available [facility] (Lab) [address] [place], [address], 03/24/2024 19:39:00 03/24/19 25 03/24/2024 COMPR EHENS JEET METAB OLIC PANEL aspartate aminotransfe rase 26 U/L 15-37 Not Available [facility] (Lab) [address] [place], [address], 03/24/2024 19:39:00 03/24/19 25 03/24/2024 COMPR EHENS JEET METAB OLIC PANEL bilirubin, total 0.80 mg/dL 0.20-1 .30 Not Available [facility] (Lab) [address] [place], [address], 03/24/2024 19:39:00 03/24/19 25 03/24/2024 COMPR EHENS JEET METAB OLIC PANEL calcium 10.2 mg/dL 8.4-10 .2 Not Available [facility] (Lab) [address] [place], [address], 03/24/2024 19:39:00 03/24/19 25 03/24/2024 COMPR EHENS JEET METAB OLIC PANEL total protein 7.1 g/dL 6.3-8. 2 Not Available [facility] (Lab) [address] [place], [address], 03/24/2024 19:39:00 03/24/19 25 03/24/2024 COMPR EHENS JEET METAB OLIC PANEL albumin 4.5 g/dL 3.4-5. 0 Not Available [facility] (Lab) [address] [place], [address], 03/24/2024 19:39:00 03/24/19 25 03/24/2024 COMPR EHENS JEET METAB OLIC PANEL globulin 2.6 g/dL 2.6-4. 2 Not Available [facility] (Lab) [address] [place], [address], 03/24/2024 19:39:00 03/24/19 25 03/24/2024 COMPR EHENS JEET METAB OLIC PANEL A/G ratio 1.7 ratio 1.0-2. 0 Not Available [facility] (Lab) [address] [place], [address], 03/24/2024 19:39:00 03/24/19 25 03/24/2024 LIPID PANEL cholesterol 187 mg/dL 140-19 9 NIH LINDA NSUS RECOM MENDA TION FOR ARIAN STERO L: ADULT CHILD LOW RISK: <200 <170 BORDE RLINE : <200- 239 ----- HIGH RISK: >240 >200 Not Available [facility] (Lab) [address] [place], [address], 03/24/2024 19:39:05 03/24/19 25 03/24/2024 LIPID PANEL triglyceride s 84 mg/dL 0-150 NIH LINDA NSUS REPOR T RECOM MENDA TION FOR TRIGL YCERI GUSTABO: ADULT CHILD LOW RISK: <150 ----- BODER LINE: 150-1 99 ----- HIGH RISK: >200 ----- Not Available [facility] (Lab) [address] [place], [address], 03/24/2024 19:39:05 03/24/19 25 03/24/2024 LIPID PANEL HDL cholesterol 55 mg/dL 40- Not Available [facility] (Lab) [address] [place], [address], 03/24/2024 19:39:05 03/24/19 25 03/24/2024 LIPID PANEL [...] WILL NOT BE REPOR RUBIO. Not Available [facility] (Lab) [address] [place], [address], 03/24/2024 19:39:05 03/24/19 25 03/24/2024 VITAM IN D 25-HY DROXY [id number] 25.8 NG/mL 30-100 low Vitam in D Statu s: Defic ient: <20 ng/mL Insuf ficie nt: 20-29 ng/mL Suffi cient : 30-10 0 ng/mL Not Available [facility] (Lab) [address] [place], [address], 03/24/2024 19:55:36 09/09/19 24 09/09/2023 cardi ac monit or No observ ation record ed. [email or web address] [address], [address], 09/14/2023 10:54:53 02/01/20 24 02/01/2024 XR, ankle , 2 view No observ ation record ed. [address] [place], [address], 03/29/2024 08:23:04 03/13/19 25 03/13/2024 LDCT, chest , for lung cance r scree tressa No observ ation record ed. [address], [address], 03/29/2024 08:23:05 Result Notes None recorded. Problems Name Problem SNOMED Code Status Onset Date Resolution Date Notes Provider Name and Address Organization Details Recorded Time Essential hypertensi on 21532307 Active Not Available [facility] 3 10:46:45 Allergic rhinitis 04032795 Active Not Available [facility] 3 10:46:45 Sleep apnea 76733611 Active 2020 on Cpap Not Available [facility] 3 10:46:46 History of hepatitis C 1734966542270 1 Active 2019 Not Available [facility] 3 10:46:46 Hemorrhoid s 74230919 Active 2022 FUNMILAYO Conrad [address], [address], [place], [address] , [facility] Mobile Experience [facility] [employer] 3 19:35:44 Osteoarthr itis 386003639 Active 2022 Margarita Chaudhary MD [address], [address], [place], [address] , [facility] [employer] [facility] [employer] 3 17:09:54 Chronic obstructiv e pulmonary disease 40645832 Active 2024 Shan Tilley MD [address], [address], [place], [address] , [facility] [employer] [facility] [employer] 5 10:31:12 Constipati on 16784602 Active 2024 Shan Tilley MD [address], [address], [place], [address] , [place] [facility] [employer] 5 10:31:33 Vitamin D deficiency 00073946 Active 2024 Edith Isbell LPN null, [place] [facility] [email or web address] 5 09:14:55 Problem Notes None recorded. Procedures Surgical History Date Name Laterality Status Provider Name and Address Organization Details Recorded Time 4 Medicare Wellness CPT Code, subsequent completed Shirley Alex RN [place] [employer] [facility] [employer] 02/24/2023 14:46:50 Colonoscopy completed Margarita Chaudhary MD [address], [address], [place], [address], [facility] [employer] [facility] [employer] 02/24/2023 15:14:48 Imaging Results Imaging Date Name Status LastModified by [facility] Details LastModified Time 09/09/2023 stemmer machine completed [email or web address] [address] [place] [address] [address], [place], [address], 09/14/2023 10:54:53 02/01/2024 XR, ankle, 2 view [facility] [place] [address], [place], [address], 03/29/2024 08:23:04 03/13/2024 LDCT, chest, for lung cancer screening completed [place] [address], [place], [address], 03/29/2024 08:23:05 Procedure Notes None recorded. Medical [...] mg tablet TAKE 2 TABLETS BY MOUTH EVERY DAY active Not Available [...] completed Not Available Not Available Not Available methocarb binh 750 mg tablet TAKE 1 TABLET BY MOUTH THREE TIMES DAILY NEEDED. active Not Available Not Available No t Available tamsulosi n 0.4 mg capsule TAKE [...] Available Not Available No t Available Fluvirin 2973-4028 45 mcg (15 mcg x 3)/0.5 mL [...] Available Not Available Not Available Afluria Quad 1276-0455 (PF) 60 mcg (15 mcg x 4)/0.5 mL IM syringe 02/12 completed Not Available Not Available Not Available Afluria Qd 2018- (36 mos up)(PF)60 mcg (15 mcg x4)/0.5 mL IM syringe ADM 0.5ML IM UTD 02/12 completed Not Available Not Available Not Available COVID-19 test specimen collectio n TEST DIRECTED TODAY 02/02 completed Not Available Not Available Not Available Afluria Qd 2019- (36 mos up)(PF)60 mcg (15 mcg x4)/0.5 [...] Updated DateTime 4 167.64 cm 31.5 kg/m2 13342.5 1 g 97.7 [degF] 92 % 92 % 2 L/min 136 mm[Hg] 78 mm[Hg] Shirley Alex RN [facility] [employer] [facility] 4 14:30:45 Date Recorded Heart rate Provider Name an d Address Organization Details Last Updated DateTime 05/26/2023 93 /min Margarita Chaudhary MD [address] [facility], [facility] [address], [place], [address], [facility] [employer] [facility] 05/26/2023 14:37:44 Date Recorded Body height Body mass index (BMI) Body weight Body temperature Heart rate Oxygen saturation Oxygen saturation in Arterial blood by Pulse oximetry Systolic blood pressure Diastolic blood pressure Provider Name and Address Organization Details Last Updated DateTime 4 167.64 cm 31.5 kg/m2 97395.5 1 g 97.8 [degF] 102 /min 94 % 94 % 142 mm[Hg] 78 mm[Hg] Shirley Alex RN [facility] [employer] [facility] 4 10:46:19 Date Recorded Body height Body mass index (BMI) Body weight Body temperature Heart rate Oxygen saturation Oxygen saturation in Arterial blood by Pulse oximetry Systolic blood pressure Diastolic blood pressure Provider Name and Address Organization Details Last Updated DateTime 4 167.64 cm 31.3 kg/m2 38616.9 2 g 97.7 [degF] 97 /min 91 % 91 % 152 mm[Hg] 98 mm[Hg] Shirley Alex RN [employer] 4 09:48:59 Date Recorded Body height Body mass index (BMI) Body weight Oxygen saturation Oxygen saturation in Arterial blood by Pulse oximetry Inhaled oxygen flow rate Heart rate Systolic blood pressure Diastolic blood pressure Provider Name and Address Organization Details Last Updated DateTime 5 167.64 cm 29.9 kg/m2 94783.5 9 g 93 % 93 % 2 L/min 87 /min 140 mm[Hg] 86 mm[Hg] Italia miller [employer] 5 10:07:58 Social History Question Answer Notes LastModified by Organization Details LastModified Time Tobacco Smoking Status Former Smoker quit smoking 2015 Margarita Chaudhary MD [address] [place] [address], [address], [employer] 02/24/2023 15:18:35 Do You Have An Advance Directive? No Patient Declined Informatio n. [id number] Information not available 04/22/2022 What Is Your Level Of Alcohol Consumption? None [id number] Information not available 04/22/2022 Do You Wear A Helmet When Biking? Yes [email or web address] Information not available 02/24/2023 What Is Your Level Of Caffeine Consumption? Moderate [id number] Information not available 04/22/2022 In The 14 Days Before Symptom Onset, Have You Had Close Contact With A Laboratory-conf irmed COVID-19 While That Case Was Ill? No Information not available 02/24/2023 In The 14 Days Before Symptom Onset, Have You Had Close Contact With A Person Who Is Under Investigation For COVID-19 While That Person Was Ill? No [email or web address] Information not available 02/24/2023 What Type Of Diet Are You Following? REGULAR [id number] Information not available 04/22/2022 What Is The Highest Grade Or Level Of School You Have Completed Or The Highest Degree You Have Received? [id number] [email or web address] Information not available 02/24/2023 How Many Days Of Moderate To Strenuous Exercise, Like A Brisk Walk, Did You Do In The Last 7 Days? 7 [email or web address] Information not available 02/24/2023 On Those Days That You Engage In Moderate To Strenuous Exercise, How Many Minutes, On Average, Do You Exercise? 30 [email or web address] Information not available 02/24/2023 Have There Been Any Changes To Your Family Or Social Situation? No [email or web address] Information not available 02/24/2023 What Is The Fluoride Status Of Your Home? Unknown Information not available 02/24/2023 When Did You Quit Smoking? 6-10yearssincelast cigarette [email or web address] Information not available 02/24/2023 Are There Any Guns Present In Your Home? No [email or web address] Information not available 02/24/2023 Do You Use Insect Repellent Routinely? No Information not available 02/24/2023 Where Do You Live? SingleLevelHouse With Basement [email or web address] Information not available 02/24/2023 Do You Have A Medical Power Of Auto Rental Supervisor? No [email or web address] Information not available 02/24/2023 What Was The Date Of Your Most Recent Tobacco Screening? 02/24/2023 [email or web address] Information not available 02/24/2023 Do You Have Any Pets? Yes Information not available 02/24/2023 What Is Your Relationship Status? [id number] Information not available 04/22/2022 Do You Use Your Seat Belt Or Car Seat Routinely? Yes [email or web address] Information not available 02/24/2023 Do You Have Smoke And Carbon Monoxide Detectors In Your Home? Yes [email or web address] Information not available 02/24/2023 At What Age Did You Start Smoking Tobacco? 11 [email or web address] Information not available 02/24/2023 Are You Passively Exposed To Smoke? No [email or web address] Information not available 02/24/2023 Are There Any Smokers In Your House? No Information not available 02/24/2023 Do You Participate In Social Media? No [email or web address] Information not available 02/24/2023 What Types Of Sporting Activities Do You Participate In? Biking [email or web address] Information not available 02/24/2023 Do You Feel Stressed (tense, Restless, Nervous, Or Anxious, Or Unable To Sleep At Night)? [id number] [email or web address] Information not available 02/24/2023 Do You Use Any Illicit Or Recreational Drugs? No [email or web address] Information not available 02/24/2023 Do You Use Sunscreen Routinely? Yes [email or web address] Information not available 02/24/2023 Has Tobacco Cessation Counseling Been Provided? No [email or web address] Information not available 02/24/2023 How Many Years Have You Smoked Tobacco? 45 [email or web address] Information not available 02/24/2023 Have You Recently Traveled Abroad? No Information not available 02/24/2023 Are You Currently In School? No [email or web address] Information not available 02/24/2023 Do You Have Any Dietary Restrictions? No [email or web address] Information not available 02/24/2023 Do You Or Have You Ever Used Any Other Forms Of Tobacco Or Nicotine? No Information not available 02/24/2023 Sex: Female Functional Status Question Answer Note LastModified by Organizat ion Details LastModified Time What is your exercise level? Occasional Patient stated she occasionally does Silver Sneakers. [id number] Information not available 04/22/2022 Mental Status None recorded. Family History Relationship Description Onset Age of this Age Resolved Age Notes LastModified by Organization Details LastModified Time Mother Heart disease [id number] Not available 04/22/2022 10:42:58 Medical History No [...] influenza, unspecified formulation 2 completed Not Available [facility] 04/22/2022 10:52:13 Influenza, split virus, quadrivalent, preservative 6 completed Not Available [facility] 04/22/2022 10:52:13 pneumococcal polysaccharide PPV23 1 completed Not Available [facility] 04/22/2022 10:52:13 Pneumococcal conjugate PCV 13 9 completed Not Available [facility] 04/22/2022 10:52:13 Influenza, split virus, quadrivalent, PF 7 completed Not Available [facility] 04/22/2022 10:52:13 Tdap 7 completed Not Available [facility] 04/22/2022 10:52:13 COVID-19, mRNA, LNP-S, PF, 100 mcg/0.5mL dose or 50 mcg/0.25mL dose 1 completed Not Available [facility] 04/22/2022 10:52:14 Influenza, split virus, trivalent, PF 4 completed FUNMILAYO Marshall-Suzie [address] [facility], [facility] [address], [place], [address], [facility] [employer] 12/01/2023 13:41:12 Past Encounters Encounter ID Performer Location Encounter Start Date Encounter Closed Date Diagnosis/Indication Diagnosis SNOMED-CT Code Diagnosis ICD10 Code Diagnosis Note [id number] [address] [place] [address] 12/11/2020 00:00:00 12/11/2020 17:46:[id number] [address] 01/28/2022 00:00:00 01/28/2022 14:08:24 [id number] _ATHENA_M IGRATION_ DEFAULT_1 _1 , 02/18/2022 00:00:00 02/18/2022 16:14:[id number] [address] 03/13/2022 00:00:00 03/13/2022 16:36:06 [id number] FUNMILAYO Conrad [address] [place] [address] 04/23/2022 10:39:43 04/23/2022 12:44:12 Skin lesion 07167397 L98.9 New problemLef t shinConcer elsie for [...] per patient, she was not candidate for [facility] or lung consolidat ion surgery. Hemorrhoids 94252405 K64 .9 Per patient, stable with dietary changes (no popcorn, chips, spicy). [id number] FUNMILAYO Conrad [facility] Primary [facility] [address] [place] [address] 09/28/2022 09:19:00 09/28/2022 10:19:20 Flank pain 080945758 R10.9 New problemuti vs renal stone vs muscle strainUrin e dip neg in office, but this is not pts first urine of the day.Will send for UA, reflex cx. In the meantime, pt to start flomax and abx, alternate ibuprofen/ acetaminop hen, with tramadol for breakthrou gh pain.Pt to call on Wednesday if no improvemen t. [id number] Margarita Chaudhary MD [facility] Primary Care [address] [place] [address] 12/21/2022 16:40:32 12/21/2022 17:13:14 Pain of left breast 3521873532 N64.4 Over due for mammograml ikely healing abscess, but will check diagnostic mammogram b/l and US left breastcall /return if no improvemen t in 1-2 days or sooner if neededrevi ewed s/s that warrant urgent/luly rgent eval in meantime Osteoarthritis 036252255 M19.90 d/c otc ibuprofeno k to continue heat, topicals, activities as toleratedd iclofenac 75 mg po bid with food prn, avoid other nsaidsf/u in 3 months or sooner if needed [id number] Margarita Chaudhary MD [facility] Primary Care [address] [place] [address] 02/24/2023 14:42:46 02/24/2023 15:28:00 Adult health examination 023057533 Z00.00 Z13.220 Pneumovax 23 done revna r 20 done 2022Recomm end shingles vaccine seriesFlu vaccine yearlyCovi d booster given 12/14Plan pneumovax 23 again age 67Colonosc opy done 2020, repeat 2025 recommende dLDCT done 10/14 done by pulmonaryS creen mammogram orderedChe ck fasting labs Screening mammography 24 480079 Z12.31 Postmenopausal state 764 98101 Z78.0 Vitamin D deficiency 347 84481 E55.9 Prediabetes 908224453 R7 3.03 stable Essential hypertension 69461915 I10 Z79.899 stable [id number] Margarita Chaudhary MD [facility] Primary Care [place] [address] [place] [address] 05/18/2023 10:48:42 05/18/2023 16:36:54 [id number] Margarita Chaudhary MD [facility] Primary Care [place] [address] [place] [address] 05/26/2023 14:23:03 05/26/2023 15:46:42 Chest pain 65426277 R07.9 Reviewed labscardio logy referral givenrevie wed s/s that warrant urgent/luly rgent eval in meantime Essential hypertension 58683251 I10 Z79.899 stablef/u in 6 months [id number] LULÚ Marshall [facility] Primary Care [place] [address] [place] [address] 11/09/2023 10:37:35 11/09/2023 14:43:38 Acute upper respiratory infection 94691877 J06.9 [id number] LULÚ Marshall [facility] Primary Care [place] [address] [place] [address] 12/01/2023 09:43:55 12/01/2023 10:46:04 Essential hypertension 52110561 I10 Z79.899 152/98Will start HCTZ as listed below, encouraged patient to follow up with Cardiologi st. Administra tion of influenza vaccine 46250789 Z23 Gastroesop hageal reflux disease without esophagitis 750745618 K21.9 Dyspnea on exertion 6084 5006 R06.09 sees pulmonolog y tomorrow.S uggested patient follow up with Ruby anton as well. [id number] Shan Tilley MD [facility] [address] [place] [address] 03/24/2024 10:00:55 03/24/2024 12:08:19 Allergic rhinitis 76791098 J30.9 under control Chronic ob structive pulmonary disease 56232642 J44.9 under control Essential hypertension 97579188 I10 under control Osteoarthritis 601553584 M19.90 otc Constipation 86593255 K5 9.00 to take otc Adult heal th examination 070058859 Z00.00 Z13.220 Colonoscop y- 2019, Dr. Estrella, ([place]) , next in 2025Ma- 2020 (normal)De xa- noneFlu -2022, ovid- all and boostersPn eumovax-2023LDCT- 09/2021 Long-term drug therapy 715582122 Z79.891 Screening mammography 24 150519 Z12.31 Postmenopausal state 764 23069 Z78.0 Health Concerns Section Related Observation LastModified [...] (MEDICARE REPLACEMENT HMO) Janetsa John Paul Christopher [id number] Janet A Ashwin 05/26/2023 1 HUMANA - GOLD PLUS (MEDICARE REPLACEMENT HMO) Janet A Ashwin [id number] Janet A Ashwin 11/09/2023 1 HUMANA - GOLD PLUS (MEDICARE REPLACEMENT HMO) Janet A Ashwin [id number] Janet A Ashwin 12/01/2023 1 HUMANA - GOLD PLUS (MEDICARE REPLACEMENT HMO) Janet A Ashwin [id number] Janet A Ashwin 03/24/2024 1 HUMANA - GOLD PLUS (MEDICARE REPLACEMENT HMO) Janet A Ashwin [id number] Janet A Ashwin Notes Date Note Type [...] is heartburn related. Margarita Chaudhary MD [address], [facility], [place], [address], [facility] 05/26/2023 14:42:27 11/09/2023 text/html Patient is a [...] mild relief of symptoms. LULÚ Marshall [address], [address], [place], [address], [facility] 11/09/2023 11:00:55 12/01/2023 text/html Patient is a 63 year old female that presents to the office for follow up. Patient reports worsening shortness of breath since having Covid last month. Patient reports she is not able to shower without using her oxygen which is new for her. Patient also reports bilateral lower leg swelling since taking the Paxlovid. Patient sees her Motorcycle Maker tomorrow. Patient reports her BP has been running high, she checks it twice daily at home and it has been running 160-170s/100s. Patient saw Cardiology in August, wore a heart monitor and never followed up. Patient denies chest pain, headaches and dizziness. Flu-ordered LULÚ Marshall [address], [address], [place], [address], [facility] 12/01/2023 13:50:11 03/24/2024 text/html Pt is here today for a New Pt appointment. feels good, needs meds refillsPt would like a colonoscopy referral ( [place] )PARACHUTE TAPER Lucy Delaney was her last physician. Pt [...] cancer- seeing derm Shan Tilley MD [address] [facility], [facility] [address], [place], [address], [facility] [employer] [facility] Access 03/24/2024 13:57:34 OBGyn Episode No OBEpisode recorded.
--- OUTSIDE RECORDS SUMMARY | 2024-04-11 17:02 | XMS_ITS ---
Author Organization [facility] [address] Address [address] [place] [address] Care Team Providers Care Logging Crew Foreman Name Role Phone Aletha Hinojosa MD Unavailable Darwin Lebron RN Unavailable Jerome Kapadia NP Unavailable Radha Boston MD Unavailable [phone] Markie Palmer DO Unavailable [phone] Margarito Fong NP Primary Care Provider [phone] Transplant Episode Lung Candidate [facility] ([place], [place]) - [facility] Evaluation began on 04/28/2021 Marked as Ongoing Follow Up on 05/01/2021 Lung CoordinatorDarwin Lebron RN Fax: N/A Email: N/A Scores Score Value Updated Exceptions/Reas ons CPRA Not available LAS [id number] 05/01/2021 [place] Organ Diagnosis Organ Primary Contributory Lung COPD/Emphysema Care Team Name Role Phone Fax Email Darwin Lebron RN Lung Coordinator [phone] N/A N/A Darwin Lebron RN Pre Coordinator [phone] N/A N/A Events Pre-Transplant Referred: 12/05/2020 Evaluation began: 04/28/2021 Committee: 05/01/2021
--- OUTSIDE RECORDS SUMMARY | 2024-04-11 17:02 | XMS_ITS | Clinical Summary ---
Author Organization [facility] [address] Address [address] [place] [address] Care Team Providers Care Engineering Mechanic Name Role Phone Aletha Hinojosa MD Unavailable [phone] Darwin Lebron RN Unavailable Jerome Kapadia NP Unavailable Radha Boston MD Unavailable Markie Palmer DO Unavailable [phone] Margarito Fong NP Primary Care Provider Allergies [...] (12/11/2020): Added automatically from request for surgery [id number] COPD (chronic obstructive pulmonary disease) 07/2018 HTN (hypertension) 03/30/2018 Immunizations Immunization Administration Dates Next Due Influenza, Split 11/26/2009 [...] place to sleep or slept in a prison (including now)? No 04/28/2021 Comments Unknown Sex and Gender Information Value Date Recorded Sex Assigned at Not on file Legal Sex Female 9:53 AM LICENSE REGISTRATION EXAMINER Gender Identity Not on file Sexual Orientation Not on file Obstetrics History Last Filed Vital Signs Vital Sign Reading Time Taken Comments Blood Pressure 134/90 08/31/2023 3:06 PM CDT Pulse 90 08/31/2023 3:06 PM CDT Temperature 36.3 C (97.4 F) 04/29/2021 11:56 AM LICENSE REGISTRATION EXAMINER Respiratory Rate 18 04/29/2021 11:5 6 AM LICENSE REGISTRATION EXAMINER Oxygen Saturation 91% 08/31/2023 3:06 PM CDT [...] HEPATITIS PANEL, ACUTE Routine 04/28/2021 8:56 AM LICENSE REGISTRATION EXAMINER Pre-transplant evaluation for lung transplant Centrilobular emphysema (CMS/HCC) (HCC) from Last 3 Months or Most Recently Relevant to Health Maintenance Results * (ABNORMAL) Hepatitis panel, acute (04/28/2021 8:56 AM LICENSE REGISTRATION EXAMINER) Hep A IgM Nonreactive Nonreactive [facility] Comment: Interpretive Data: If Hep A IgM Ab is reported as Equivocal, a new sample should be drawn in two weeks for testing. Current interpretive data was last revised on 19. Hep B core IgM Nonreactive Nonreactive [facility] Comment: Interpretive Data If HepB Core IgM Ab is reported as Equivocal, a new sample should be drawn in two weeks for testing. Current interpretive data was last revised on 19. Hep C Ab Reactive(A) Nonreactive [facility] Comment:Positive for HCV ant ibodies. This may represent current or past HCV infection. Supplemental molecular testing will be automatically performed to determine current infection status in accordance with current CDC screening recommendations. HepBsAg Nonreactive Nonreactive [facility] Blood 04/28/2021 8:56 AM LICENSE REGISTRATION EXAMINER 04/28/2021 9:17 AM LICENSE REGISTRATION EXAMINER us Domenico Hannah MD LAB MICROBIOLOGY - GENE RAL ORDERABLES Final Result [facility] Department [place] [address] from Last 3 Months or Most Recently Relevant to Health Maintenance Insurance IDPA BLUE ANTHEM MEDICARE PREFERRED HMO PPO [facility] [place] MEDICARE [place] HUMANA MEDICARE HMO Care Teams Engineering Mechanic Relationship Specialty Start Date End Date Margarito Fong NP [address] [place] [address] PCP - General Internal Medicine 10/22/22 Aletha Hinojosa MD [address] [place] [address] [address] [place] [address] 06/03/17 Darwin Lebron, RN [address] [facility] [address] [place] [address] Furnace Filler 12/05/20 Jerome Kapadia NP [address] [facility] [address] [place] [address] Nurse Practitioner 04/28/21 Radha Boston MD [address] [place], [place] [id number] Consulting Physician Cardiology 04/28/21 Markie Palmer DO [address] [place], [place] [address] Referring Physician Surgery 04/28/21
--- OUTSIDE RECORDS SUMMARY | 2024-04-11 17:02 | XMS_ITS | Patient Health Summary ---
Author Organization [facility] Address [address] [facility] [place] [address] Care Team Providers Care Boot Lace Cutter Machine Name Role Phone Margarito Fong APRN-ICE CREAM CHEF Primary Care Provider Note from [facility],non-owned Affiliates and Associated Physician Practices is amultiple site organization consisting of ambulatory clinics and hospital sitesin [place], [place], [place] and [place]. This disclosure is being madepursuant [...] . Ameena Wang MD [facility] Care Teams Boot Lace Cutter Machine Relationship Specialty Start Date End Date Margarito Fong, SIGNWRITER-ICE CREAM CHEF [address] [place] [address] [place] [id number] PCP - General 07/22/18
--- OUTSIDE RECORDS SUMMARY | 2024-04-11 17:02 | XMS_ITS | Referral Summary ---
Author Organization [facility] Address [address] [place] [address] Care Team Providers Care Bioinformatics Engineer Name Role Phone Margarito Fong APRN-TEXTILE CONVERTER Primary Care Provider Source Comments [facility],non-owned Affiliates and Associated Physician Practices is amultiple site organization consisting of ambulatory clinics and hospital sitesin [place], [place] and [place]. This disclosure is being madepursuant to the Care Everywhere program and may not contain all information available regarding this patient. Last updated 17.[facility] [employer] Social History Tobacco Use Types Packs/Day Years [...] of Treatment Not on file Care Teams Bioinformatics Engineer Relationship Specialty Start Date End Date Margarito Fong, PERINATAL TECHNICIAN-TEXTILE CONVERTER [address] [place] [address] [place] [id number] PCP - General 07/22/18
--- OUTSIDE RECORDS SUMMARY | 2024-04-11 17:02 | XMS_ITS | Referral Summary ---
Author Organization [facility] [address] Address [address] [place] [address] Care Team Providers Care Substitute Bus Driver Name Role Phone Aletha Hinojosa MD Unavailable Darwin Lebron RN Unavailable [phone] Jerome Kapadia NP Unavailable Radha Boston MD Unavailable [phone] Markie Palmer DO Unavailable [phone] Margarito Fong NP Primary Care Provider Allergies [...] (12/11/2020): Added automatically from request for surgery [id number] COPD (chronic obstructive pulmonary disease) 07/2018 HTN [...] No 04/28/2021 Housing Stability Vital Sign Answer Macrelo e Recorded In the last 12 months, [...] on file Legal Sex Female 9:53 AM SCANNING SUPERVISOR Gender Identity Not on file Sexual Orientation Not on file Last Filed Vital Signs Vital Sign Reading Time Taken Comments Blood Pressure 134/90 08/31/2023 3:06 PM CDT Pulse 90 08/31/2023 3:06 PM CDT Temperature 36.3 C (97.4 F) 04/29/2021 11:56 AM SCANNING SUPERVISOR Respiratory Rate 18 04/29/2021 11:5 6 AM SCANNING SUPERVISOR Oxygen Saturation 91% 08/31/2023 3:06 PM CDT Inhaled Oxygen Concentration - - Weight 88.4 kg (194 lb 12.8 oz) 08/31/2023 3:06 PM CDT Height 168.9 cm (5' 6.5 ) 08/31/2023 3:06 PM CDT Body Mass Index 30.97 08/31/2023 3:06 PM CDT Plan of Treatment Not on file Procedures Procedure Name Priority Date/Time Associated Diagnosis Comments HEPATITIS PANEL, ACUTE Routine 04/28/2021 8:56 AM SCANNING SUPERVISOR Pre-transplant evaluation for lung transplant Centrilobular emphysema (CMS/HCC) (HCC) from Last 3 Months or Most Recently Relevant to Health Maintenance Results * (ABNORMAL) Hepatitis panel, acute (04/28/2021 8:56 AM SCANNING SUPERVISOR) Hep A IgM Nonreactive Nonreactive [facility] [...] on 19. Hep C Ab Reactive(A) Nonreactive [facility] Comment:Positive for HCV ant ibodies. This may represent current or past HCV infection. Supplemental molecular testing will be automatically performed to determine current infection status in accordance with current CDC screening recommendations. HepBsAg Nonreactive Nonreactive [facility] Blood 04/28/2021 8:56 AM SCANNING SUPERVISOR 04/28/2021 9:17 AM SCANNING SUPERVISOR Domenico Hannah MD LAB MICROBIOLOGY - GENE [facility] ORDERABLES Final Result [facility] [address] [facility] Department [place] [address] from Last 3 Months or Most Recently Relevant to Health Maintenance Insurance IDPA BLUE ANTHEM MEDICARE PREFERRED HMO [facility]PO [facility] BCBS MEDICARE [place] HUMANA MEDICARE HMO Care Teams Substitute Bus Driver Relationship Specialty Start Date End Date Margarito Fong, SUPERINTENDENT MECHANICAL [address] [facility] [address] [facility] [address] [place] [address] PCP - General Internal Medicine 10/22/22 Aletha Hinojosa MD [address] [facility] [address] [place], [place] [phone] 06/03/17 Darwin Lebron, RN [address] [facility] [address] [place] [address] Ad Operations Coordinator 12/05/20 Jerome Kapadia NP [address] [address] Nurse Practitioner 04/28/21 Radha Boston MD [address] [place] [address] Consulting Physician Cardiology 04/28/21 Markie Palmer DO [address] [facility] [address] [facility] [address] [place] [address] Referring Physician Surgery 04/28/21
--- OUTSIDE RECORDS SUMMARY | 2024-04-11 17:02 | XMS_ITS | Clinical Summary ---
Author Organization [facility] Address [address] [place] [address] Care Team Providers Care Sports Book Server Name Role Phone Margarito Fong APRN-PSYCH SPECIALIST Primary Care Provider Source Comments [facility],non-owned Affiliates and Associated Physician Practices is amultiple site organization consisting of ambulatory clinics and hospital sitesin [place], [place], [place] and [place]. This disclosure is being madepursuant to the Care Everywhere program and may not contain all information available regarding this patient. Last updated 17.[facility] [employer] Social History Tobacco Use Types Packs/Day Years [...] age to complete this topic Care Teams Sports Book Server Relationship Specialty Start Date End Date Margarito Fong, MANAGER DEMAND-PSYCH SPECIALIST [address] [place] [address] PCP - General 07/22/18
[2024-04-11 17:11] VITALS: BP 138/85; PULSE 107; RESP 20; TEMP 37.8; O2SAT 96
--- OUTSIDE RECORDS SUMMARY | 2024-04-11 18:24 | XMS_ITS | Patient Health Summary ---
Author Organization [facility] Address [address] [facility] [place] [address] Care Team Providers Care Rechecker Name Role Phone Margarito Fong APRN-COMPONENT INSPECTOR Primary Care Provider Note from [facility],non-owned Affiliates and Associated Physician Practices is amultiple site organization consisting of ambulatory clinics and hospital sitesin [place], [place], [place] and [place]. This disclosure is being madepursuant to the Care Everywhere program and may not contain all information available regarding this patient. Last updated 17.[facility] Social History Tobacco Use Types Packs/Day [...] . Ameena Wang MD DIAGNOSTIC IM[facility] Care Teams Rechecker Relationship Specialty Start Date End Date Margarito Fong, MEMBER OF THE LEGISLATIVE ASSEMBLY-COMPONENT INSPECTOR [address] [place] [address] [place] [id number] PCP - General 07/22/18
--- OUTSIDE RECORDS SUMMARY | 2024-04-11 18:24 | XMS_ITS | Referral Summary ---
Author Organization [facility] Address [address] [place] [address] Care Team Providers Care Electro Winning Operator Name Role Phone Margarito Fong APRN-LOCKSTITCH CUP SETTER Primary Care Provider Source Comments [facility],non-owned Affiliates and Associated Physician Practices is amultiple site organization consisting of ambulatory clinics and hospital sitesin [place], [place], [place] and [place]. This disclosure is being madepursuant to the Care Everywhere program and may not contain all information available regarding this patient. Last updated 17.[facility] [employer] Social History Tobacco Use Types Packs/Day Years [...] of Treatment Not on file Care Teams Electro Winning Operator Relationship Specialty Start Date End Date Margarito Fong, CONFIGURATION SPECIALIST-LOCKSTITCH CUP SETTER [address] [place] [address] [place] [phone] PCP - General 07/22/18
--- OUTSIDE RECORDS SUMMARY | 2024-04-11 18:24 | XMS_ITS | Clinical Summary ---
Author Organization [facility] Address [address] [place] [address] Care Team Providers Care Computer Animator Name Role Phone Margarito Fong APRN-TRANSPORT TANK TECHNICIAN Primary Care Provider Source Comments [facility],non-owned Affiliates and Associated Physician Practices is amultiple site organization consisting of ambulatory clinics and hospital sitesin [place], [place], [place] and [place]. This disclosure is being madepursuant to the Care Everywhere program and may not contain all information available regarding this patient. Last updated 17.[facility] [employer] Social History Tobacco Use Types Packs/Day Years [...] age to complete this topic Care Teams Computer Animator Relationship Specialty Start Date End Date Margarito Fong, RETAIL SERVICE REPRESENTATIVE-TRANSPORT TANK TECHNICIAN [address] [place] [id number] PCP - General 07/22/18
[2024-04-11 18:28] VITALS: BP 118/98; PULSE 98; RESP 20; O2SAT 96
[2024-04-11] MEDS: SODIUM CHLORIDE 0.9% IV 1,000 ML 999 ML IV CONT (18:39)
--- NOTE | 2024-04-11 18:42 | ED.GENADULT ---
HPI - General Adult General Chief complaint: Back Pain/Injury Stated complaint: kidney pain,nausea,body aches, fever Time Seen by Provider: 04/11/24 18:11 History of Present Illness HPI narrative: 63-year-old female presenting to the emergency department for evaluation for bilateral lower back pain. Patient denies any pain with urination. Patient does suspect she is having a kidney issue. Patient denies any prior history of kidney stones. Patient does have a significant history of urinary tract infections. Patient does complain of nausea and vomiting states symptoms have been ongoing for approximately 1 week. Related Data Home Medications ?Medication ?Instructions ?Recorded ?Confirmed ?Last Taken ?Type amlodipine 10 mg tablet 10 mg PO DAILY 01/04/19 12/02/23 Unknown History fluticasone propionate 50 1 spray intranasal DAILY 01/04/19 12/02/23 Unknown History mcg/actuation nasal spray,suspension (Flonase Allergy Relief) Allergies Allergy/AdvReac Type Severity Reaction Status Date / Time No Known Allergies Allergy Verified 04/11/24 18:27 Review of Systems Review of Systems: All systems reviewed & are unremarkable except as noted in HPI and below PMFSH Past Medical History Medical History Bronchiectasis without complication Chronic obstructive pulmonary disease ANGEL (obstructive sleep apnea) Family History Family History Mother Hypertension Other Diabetes mellitus Social History Social History Smoking packs per day: 0.5 Smoking cigarettes per day: 10.0 Years smoked: 40 Smoking pack-years: 20.00 Smoking status: Former smoker Second hand tobacco smoke exposure: Yes Smoking end date: 02/22/15 Additional smoking assessment comments: started smoking at age 14 Alcohol intake: never Lack of Transportation: No Lack of Food: Sometimes True Current Housing: I Have Housing Concerned About Future Housing: No Difficulty Paying Gas/Electric Bills: No Difficulty Paying for Meds: Decline to Answer Currently Unemployed: No Education: High School Diploma/GED Difficulty w/ Childcare or Family Care: No Exam Narrative: APPEARANCE: Ill-appearing. HEAD: normocephalic, atraumatic. EYES: PERRLA/EOMI, conjunctivae clear. NOSE: Normal no drainage EARS:TMS clear with good light reflex. THROAT: Pharynx clear, no exudate. NECK: Supple. No adenopathy, no masses. RESPIRATORY: Airway patent, respirations nonlabored. Clear to auscultation bilaterally, no rales, rhonchi, wheezing. CARDIOVASCULAR: Regular rate and rhythm without murmurs rubs or gallops. ABDOMINAL: Soft, nontender, nondistended, normal bowel sounds MUSCULOSKELETAL: Moves all extremities. Strength/ROM intact, No edema, No calf tenderness. NEURO: Alert. Cranial nerves II through XII intact. Good gait. Good coordination SKIN: Warm, dry. Normal Color Course Vital Signs Vital signs: Vital Signs Temperature 100.0 F H 04/11/24 17:11 Pulse Rate 107 H 04/11/24 17:11 Respiratory Rate 20 04/11/24 17:11 Blood Pressure 138/85 04/11/24 17:11 Pulse Oximetry 96 04/11/24 17:11 Oxygen Delivery Room Air 04/11/24 17:11 Temperature 100.0 F H 04/11/24 17:11 Pulse Rate 88 04/11/24 19:45 Respiratory Rate 18 04/11/24 19:45 Blood Pressure 118/98 H 04/11/24 19:45 Pulse Oximetry 95 04/11/24 19:45 Oxygen Delivery Room Air 04/11/24 17:11 Medical Decision Making [facility] Narrative Medical decision making narrative: 63-year-old female with history of COPD presented emergency department for evaluation for nausea vomiting tachycardia low-grade fever and lower abdominal pain. Patient's UA was consistent for urinary tract infection. Patient does have an elevated leukocytosis of 15 with a stable hemoglobin of 13.6. Patient did have a sodium of 130 with normal creatinine clearance and no other significant abnormalities on her CMP. UA was significant for urinary tract infection with positive ketones, positive nitrates, positive leukocyte esterase and greater than 100 white blood cells with +4 bacteria. Patient did have some red blood cells. Patient denies any prior history of kidney stones. CT abdomen pelvis without contrast was ordered. On re-evaluation patient states she does feel improved but is still ill appearing. Case will be discussed with the hospitalist for admission for pyelonephritis. Differential Diagnosis Differential Diagnosis: Urinary tract infection, pyelonephritis, dehydration, acute kidney injury Vital Signs Vital Signs: Vital Signs Temperature 100.0 F H 04/11/24 17:11 Pulse Rate 107 H 04/11/24 17:11 Respiratory Rate 20 04/11/24 17:11 Blood Pressure 138/85 04/11/24 17:11 Pulse Oximetry 96 04/11/24 17:11 Oxygen Delivery Room Air 04/11/24 17:11 Temperature 100.0 F H 04/11/24 17:11 Pulse Rate 88 04/11/24 19:45 Respiratory Rate 18 04/11/24 19:45 Blood Pressure 118/98 H 04/11/24 19:45 Pulse Oximetry 95 04/11/24 19:45 Oxygen Delivery Room Air 04/11/24 17:11 Lab Data Lab results reviewed: Yes I reviewed the patient's lab results. 04/11/24 18:36 04/11/24 18:36 Labs: Lab Results 04/11/24 04/11/24 04/11/24 Range/Units 18:36 19:14 19:33 WBC 15.0 H (4.5-10.0) K/mm3 RBC 4.73 (4.2-5.4) M/mm3 Hgb 13.6 (12.0-15.0) g/dL Hct 41.0 (37.0-47.0) % MCV 86.7 (80-100) fl MCH 28.8 (26-34) pg MCHC 33.2 (32-36) g/dl RDW 13.3 (11.5-14.5) % Plt Count 284 (150-375) k/mm3 MPV 10.2 (7.4-10.4) fl Immature Gran % (Auto) 1.5 H (0-0.5) % Neut % (Auto) 78.5 H (45.5-73.1) % Lymph % (Auto) 7.0 L (18.3-44.2) % [place] % (Auto) 12.6 H (2.6-8.5) % Eos % (Auto) 0.1 (0-4.4) % Baso % (Auto) 0.3 (0.2-1.2) % Lymph # (Auto) 1.04 (0.9-3.2) K/mm3 [place] # (Auto) 1.9 H (0.1-0.6) K/mm3 Eos # (Auto) 0.0 (0-0.3) K/mm3 Baso # (Auto) 0.0 (0.0-0.1) K/mm3 Abs Immat Gran (auto) 0.22 H (0.00-0.031) K/mm3 Absolute Neuts (auto) 11.8 H (1.3-6.7) K/mm3 Absolute Nucleated RBC 0.000 (0.0-0.012) K/mm3 Nucleated RBC % 0.0 (0.0-0.2) % Sodium 130 L (137-145) mmol/L Potassium 3.4 (3.4-5.0) mmol/L Chloride 96 L (98-107) mmol/L Carbon Dioxide 25 (22-30) mmol/L Anion Gap 9 (4-12) mmol/L BUN 17 (7-17) mg/dL Creatinine 0.72 (0.7-1.0) mg/dL Estim Creat Clear Calc 77 ml/min Estimated GFR > 60 (59 - ) Glucose 141 H (65-110) mg/dL Calcium 8.4 (8.4-10.2) mg/dL Total Bilirubin 0.7 (0.2-1.3) mg/dL AST 30 (14-36) U/L ALT 15 (6-35) U/L Alkaline Phosphatase 87 (38-126) U/L Total Protein 7.0 (6.3-8.2) g/dL Albumin 3.5 (3.5-5.1) g/dL Urine Color Yellow (Yellow) Urine Appearance Cloudy H (Clear) Urine pH 5.5 (5.0-9.0) Ur Specific [place] 1.014 (1.001-1.035) Urine Protein 1+ H (Negative) mg/dL Urine Glucose (UA) Negative (Negative) mg/dL Urine Ketones 1+ H (Negative) mg/dL Ur Blood (Man) 2+ H (Negative) Urine Nitrate Positive H (Negative) Urine Bilirubin Negative (Negative) Urine Urobilinogen 1.0 (<2.0) mg/dL Leukocyte Esterase Rfl 3+ H (Negative) HIMANSHU/UL Urine RBC 3-5 H (0-2) /hpf Urine WBC >100 H (0-3) /hpf Ur Squamous Epith Cells Occasional (Few) /hpf Urine Bacteria 4+ H /hpf Urine Casts 0-2 Influenza A (RT-PCR) Negative (Negative) Influenza B (RT-PCR) Negative (Negative) RSV (RT-PCR) Negative (Negative) SARS-CoV-2 RNA (RT-PCR) Negative (Negative) Imaging Data Radiologist's impression: Impressions Abdomen/Pelvis CT 04/11/24 20:39 IMPRESSION: Asymmetric perinephric and periureteral stranding on the left, may represent pyelonephritis and the appropriate clinical context. Discharge Plan Discharge Clinical Impression: Pyelonephritis, Nausea & vomiting Patient Disposition: Still a Patient Condition: Serious Patient Language: Slovak Prescriptions: No Action albuterol sulfate 2.5 mg /3 mL (0.083 %) solution for nebulization 2.5 mg inhalation Q6H PRN (Reason: shortness of breath or wheezing) Qty: 360 1RF amlodipine 10 mg Tablet 10 mg PO DAILY fluticasone propionate [Flonase Allergy Relief] 50 mcg/actuation Wheeler,Suspension 1 spray INTRANASAL DAILY prednisone 20 mg tablet 40 mg PO DAILY 5 Days Qty: 10 0RF methocarbamol 750 mg tablet 750 mg PO TID PRN (Reason: muscle spasm) Qty: 30 0RF benzonatate 200 mg capsule 200 mg PO TID PRN (Reason: cough) Qty: 90 1RF ipratropium bromide 0.02 % solution See Rx Instructions .ROUTE .COMPLEX Qty: 900 3RF Dose Instruction: USE 1 VIAL VIA NEBULIZER FOUR TIMES DAILY NEEDED Rx Instructions: USE 1 VIAL VIA NEBULIZER FOUR TIMES DAILY NEEDED Spiriva Respimat 2.5 mcg/actuation mist See Rx Instructions .ROUTE .COMPLEX Qty: 12 3RF Dose Instruction: INHALE 2 PUFFS EVERY MORNING Rx Instructions: INHALE 2 PUFFS EVERY MORNING albuterol sulfate 90 mcg/actuation HFA aerosol inhaler See Rx Instructions .ROUTE .COMPLEX Qty: 54 3RF Dose Instruction: INHALE 1 TO 2 PUFFS EVERY 4 TO 6 HOURS NEEDED FOR SHORTNESS OF BREATH OR WHEEZING Rx Instructions: INHALE 1 TO 2 PUFFS EVERY 4 TO 6 HOURS NEEDED FOR SHORTNESS OF BREATH OR WHEEZING budesonide-formoterol [Symbicort] 160-4.5 mcg/actuation HFA aerosol inhaler 2 puff inhalation Q12H 90 Days Qty: 30.6 3RF Rx Instructions: rinse and spit Follow-up/Referrals: Jarek,Shan Reis MD [Primary Care Provider] -
[2024-04-11 18:45] LABS: Basophils Percent Auto 0.3 % (0.2-1.2); Eosinophils Percent Auto 0.1 % (0-4.4); Hemoglobin 13.6 g/dL (12.0-15.0); Immature Granulocyte Absolute 0.22 K/mm3 (0.00-0.031); Immature Granulocyte Percent A 1.5 % (0-0.5); Lymphocytes Absolute Auto 1.04 K/mm3 (0.9-3.2); Mean Corpuscular HGB Conc 33.2 g/dl (32-36); Mean Corpuscular Hemoglobin 28.8 pg (26-34); Mean Corpuscular Volume 86.7 fl (80-100); Mean Platelet Volume 10.2 fl (7.4-10.4); Monocytes Absolute Auto 1.9 K/mm3 (0.1-0.6); Monocytes Percent Auto 12.6 % (2.6-8.5); Neutrophils Absolute Auto 11.8 K/mm3 (1.3-6.7); Neutrophils Percent Auto 78.5 % (45.5-73.1); Platelet Count Result 284 k/mm3 (150-375); Red Blood Count 4.73 M/mm3 (4.2-5.4); Red Cell Distribution Width 13.3 % (11.5-14.5)
[2024-04-11 18:54] LABS: Alanine Aminotransferase 15 U/L (6-35); Albumin Level 3.5 g/dL (3.5-5.1); Alkaline Phosphatase 87 U/L (38-126); Anion Gap 9 mmol/L (4-12); Aspartate Amino Transferase 30 U/L (14-36); Bilirubin,Total 0.7 mg/dL (0.2-1.3); Blood Urea Nitrogen 17 mg/dL (7-17); Calcium 8.4 mg/dL (8.4-10.2); Carbon Dioxide 25 mmol/L (22-30); Chloride 96 mmol/L (98-107); Estimated CRCL calculation 77 ml/min; Estimated Glomerular Filt Rate > 60; Glucose 141 mg/dL (65-110); Potassium 3.4 mmol/L (3.4-5.0); Sodium 130 mmol/L (137-145)
[2024-04-11] MEDS: ONDANSETRON INJ 4 MG/2 ML VIAL IV PUSH ×2 (19:22→22:58)
[2024-04-11] MEDS: ACETAMINOPHEN 500 MG TABLET 1000 MG PO (19:22)
[2024-04-11] MEDS: HYDROmorphone HCL INJ (*CRX) 1 MG/ML SYR IV PUSH (19:22)
[2024-04-11 19:42] LABS: Add Urine Microscopic? YES; Appearance Urine Cloudy (Clear); Bacteria Urine 4+ /hpf; Bilirubin Urine Negative (Negative); Blood Urine 2+ (Negative); Color Urine Yellow (Yellow); Glucose Urine UA Negative (Negative); Ketones Urine 1+ mg/dL (Negative); Leukocyte Esterase Ur 3+ LEU/UL (Negative); Nitrate Urine Positive (Negative); Non Pathogenic Casts 0-2; Protein Urine 1+ mg/dL (Negative); Specific Grav Ur 1.014 (1.001-1.035); Squamous Epithelial Cell Urine Occasional /hpf (Few); WBC Urine >100 /hpf (0-3); pH Urine 5.5 (5.0-9.0)
[2024-04-11 19:45] VITALS: BP 118/98; PULSE 88; RESP 18; O2SAT 95
[2024-04-11 19:57] LABS: Influenza A QL RT-PCR Negative (Negative); Influenza B QL RT-PCR Negative (Negative); RSV RNA, RT-PCR Negative (Negative); SARS-CoV-2 RNA PCR Negative (Negative)
--- NOTE | 2024-04-11 21:59 | PM.IMHP ---
H&P: HPI History of Present Illness Date/Time: 04/11/24 21:59 Chief Complaint: I think come having kidney pain Narrative: 63-year-old female with a past medical history of COPD, essential hypertension allergic rhinitis and frequent urinary tract infections who presented to the ER with complaints of left lower back pain 3 days. She reports that she had onset of symptoms with intractable nausea and dry heaves, chills and subjective fever, left flank pain. She had a history of intermittent UTIs with her last UTI being last fall. She denied having any dysuria but was having some darker urine. Her urine was also cloudy in appearance. She denied hematuria. She denied any changes in her bowel habits. She reports that her pain was moderate to severe in intensity and aching in nature. She was unable to keep medications down. She did develop headache as well. She does have chronic COPD but denies any changes in her breathing. Review of Systems Review of Systems: 12 systems were reviewed with pertinent positives and negatives per HPI. Except as documented in the HPI, all other systems were reviewed and are negative. FOR[facility]LY [facility], [facility] Past Medical History Medical History (Updated 04/11/24 @ 22:21 by Yadi Perez DO) Hepatitis C (~2017) Status post treatment with Harvoni Anxiety Obstructive sleep apnea on CPAP (~2020) Diastolic dysfunction Grade 1 diastolic dysfunction on echocardiogram 2019 with EF of 70% Bronchiectasis without complication Chronic obstructive pulmonary disease Surgical History Surgical History (Updated 04/11/24 @ 22:15 by Yadi Perez DO) History of colonoscopy with polypectomy (~2020) History of appendectomy (~2009) History of right inguinal hernia repair Right right inguinal hernia repair with mesh that subsequently required mesh removal in 2019 History of cardiac catheterization 2018 that demonstrated nonobstructive disease Family History Family History Mother Hypertension Other Diabetes mellitus Social History Social History (Updated 04/12/24 @ 06:53 by Yadi Perez DO) Social History: Patient used to smoke 1 pack every 3 days for 40 years. She quit 2015. She has smoked marijuana for 40 years but quit in 2014. She has been since 2012. She was for 15 years prior to her 's . 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 She is now on disability. She and her daughter live together. She has a pit bull/cane Kiran. Code status: Full code Surrogate decision maker: Agnes Martinez (daughter) Smoking packs per day: 0.5 Smoking cigarettes per day: 10.0 Years smoked: 40 Smoking pack-years: 20.00 Smoking status: Former smoker Second hand tobacco smoke exposure: Yes Additional smoking assessment comments: started smoking at age 14 Alcohol intake: never Substance use: never Do You Feel Safe in your Home?: Yes Lack of Transportation: No Lack of Food: Sometimes True Current Housing: I Have Housing Concerned About Future Housing: No Difficulty Paying Gas/Electric Bills: No Difficulty Paying for Meds: Decline to Answer Currently Unemployed: No Education: High School Diploma/GED Difficulty w/ Childcare or Family Care: No Spiritual care concerns: No Meds Home Medications and Allergies Home Medications ?Medication ?Instructions ?Recorded ?Confirmed ?Type amlodipine 10 mg tablet 10 mg PO DAILY 01/04/19 04/11/24 History fluticasone propionate 50 1 spray intranasal DAILY PRN 01/04/19 04/11/24 History mcg/actuation nasal allergy symptoms spray,suspension (Flonase Allergy Relief) ipratropium bromide 0.02 % See Rx Instructions .Route 03/01/23 04/11/24 Rx solution for inhalation .COMPLEX #900 mL albuterol sulfate 2.5 mg/3 mL 2.5 mg (3 mL) inhalation Q6H PRN 03/22/23 04/11/24 Rx (0.083 %) solution for nebulization shortness of breath or wheezing #360 mL Spiriva Respimat 2.5 mcg/actuation See Rx Instructions .Route 04/19/23 04/11/24 Rx solution for inhalation .COMPLEX #12 grams (tiotropium bromide) albuterol sulfate 90 mcg/actuation See Rx Instructions .Route 01/13/24 04/11/24 Rx aerosol inhaler .COMPLEX #54 grams Symbicort 160 mcg-4.5 2 puff inhalation Q12H 90 days 02/24/24 04/11/24 Rx mcg/actuation HFA aerosol inhaler #30.6 grams (budesonide-formoterol) Allergies Allergy/AdvReac Type Severity Reaction Status Date / Time No Known Allergies Allergy Verified 04/11/24 18:27 Vital Signs Vital Signs - 24 hr 04/11/24 17:11 04/11/24 18:28 04/11/24 19:45 Temperature 100.0 F H Pulse Rate 107 H 98 88 Respiratory Rate 20 20 18 Blood Pressure 138/85 118/98 H 118/98 H Pulse Oximetry 96 96 95 Oxygen Delivery Room Air Exam Narrative: Weight 83.9 kg BMI 29.9 Const: Other: Appears older than stated age, no acute distress, sitting up in bed with her legs crossed HENMT: Other: Mucous membranes are tacky, no oral pharyngeal erythema, edentulous in upper and lower jaw Eyes: Other: Pupils are equal and reactive, no scleral icterus, no conjunctival pallor Neck: Other: No JVD, no lymphadenopathy Resp: Other: Clear to auscultation bilaterally, no increased work of breathing Cardio: Other: Regular rate, regular rhythm, 2+ bilateral radial pedal pulses GI: Other: Soft, nontender, nondistended, positive bowel sounds Back/Spine/Pelvis: Other: Left lower flank pain to percussion Skin: Other: Warm to touch, non jaundice, no pallor Neuro: Other: Alert orient x4, speech is clear, no facial asymmetry, no localizing neurologic deficits noted during the course of conversation Extrem: Other: No cyanosis, no edema, moves all extremities equally Psych: Other: Appropriate mood and affect, pleasant and cooperative, judgment and insight intact H&P: Results Labs Labs: Laboratory Tests 04/11/24 18:36 04/11/24 18:36 04/11/24 04/11/24 04/11/24 18:36 19:14 19:33 WBC 15.0 H RBC 4.73 Hgb 13.6 Hct 41.0 MCV 86.7 MCH 28.8 MCHC 33.2 RDW 13.3 Plt Count 284 MPV 10.2 Immature Gran % (Auto) 1.5 H Neut % (Auto) 78.5 H Lymph % (Auto) 7.0 L [place] % (Auto) 12.6 H Eos % (Auto) 0.1 Baso % (Auto) 0.3 Lymph # (Auto) 1.04 [place] # (Auto) 1.9 H Eos # (Auto) 0.0 Baso # (Auto) 0.0 Abs Immat Gran (auto) 0.22 H Absolute Neuts (auto) 11.8 H Absolute Nucleated RBC 0.000 Nucleated RBC % 0.0 Sodium 130 L Potassium 3.4 Chloride 96 L Carbon Dioxide 25 Anion Gap 9 BUN 17 Creatinine 0.72 Estim Creat Clear Calc 77 Estimated GFR > 60 Glucose 141 H Calcium 8.4 Total Bilirubin 0.7 AST 30 ALT 15 Alkaline Phosphatase 87 Total Protein 7.0 Albumin 3.5 Urine Color Yellow Urine Appearance Cloudy H Urine pH 5.5 Ur Specific [place] 1.014 Urine Protein 1+ H Urine Glucose (UA) Negative Urine Ketones 1+ H Ur Blood (Man) 2+ H Urine Nitrate Positive H Urine Bilirubin Negative Urine Urobilinogen 1.0 Leukocyte Esterase Rfl 3+ H Urine RBC 3-5 H Urine WBC >100 H Ur Squamous Epith Cells Occasional Urine Bacteria 4+ H Urine Casts 0-2 Influenza A (RT-PCR) Negative Influenza B (RT-PCR) Negative RSV (RT-PCR) Negative SARS-CoV-2 RNA (RT-PCR) Negative Impressions Abdomen/Pelvis CT 04/11/24 20:39 IMPRESSION: Asymmetric perinephric and periureteral stranding on the left, may represent pyelonephritis and the appropriate clinical context. Assessment and Plan Assessment and plan (1) Pyelonephritis: Code(s): N12 - Tubulo-interstitial nephritis, not specified as acute or chronic Status: Acute (2) SIRS (systemic inflammatory response syndrome): Code(s): R65.10 - Systemic inflammatory response syndrome (SIRS) of non-infectious origin without acute organ dysfunction Status: Acute (3) Acute hyponatremia: Code(s): E87.1 - Hypo-osmolality and hyponatremia Status: Acute (4) Obstructive sleep apnea on CPAP: Onset Date: ~2020 Code(s): G47.33 - Obstructive sleep apnea (adult) (pediatric) Status: Acute (5) Chronic obstructive pulmonary disease: Qualifiers: COPD type: unspecified COPD Qualified Code(s): J44.9 - Chronic obstructive pulmonary disease, unspecified Code(s): J44.9 - Chronic obstructive pulmonary disease, unspecified Status: Acute Plan The patient has left-sided pyelonephritis in meets SIRS criteria with borderline tachycardia and temperature of 100? as well as some leukocytosis. Urine cultures have been obtained and are pending. Will also check blood cultures. Patient was started on empiric antibiotic therapy with Rocephin. Her prior urine cultures from a couple of years ago demonstrated pansensitive E coli. Will repeat CBC in a.m.. Patient also has some mild hyponatremia likely due to some relative hypovolemia patient did receive 1 L fluid bolus in the ER will continue on maintenance fluids at 100 mL an hour with normal saline. Will repeat electrolyte panel in a.m.. Will order auto titrating CPAP/BiPAP. Will continue patient's home inhalers and p.r.n. nebulizers for her history of COPD. Patient has been admitted as observation status. Quality VTE Prophylaxis VTE prophylaxis: pharmacologic ordered (Lovenox 40 mg subQ daily.) Hospitalist [facility] Advance Care Plan I have confirmed that the patient's Advanced Care Plan is present, code status is documented, or surrogate decision maker is listed in patient medical record.: Yes Medication Reconciliation I have utilized all available resources to obtain, update and review the patients current medications (includes all prescriptions, OTC, herbals, cannabis, and nutritional supplements).: Yes
[2024-04-11 22:13] VITALS: BMI 30.1
[2024-04-11 22:25] VITALS: BMI 30.1
--- NOTE | 2024-04-11 22:25 | ADMGEN ---
This patient, Janet Christopher, was admitted to Medical Room 246-01. Patient/family oriented to hospital policies and general routines including ID bracelet, bed and alarms, visiting hours, pain management, procedures, bathroom and other care routines, personal items, smoking policy, room service/diet, and visiting hours. Information on how to activate the Rapid Response Team has been discussed. Patient/Family are encouraged to report perceived risks to care and to ask questions if they do not understand what they are told or what they should do.
[2024-04-11 22:41] VITALS: BP 118/65; PULSE 84; RESP 20; TEMP 37; O2SAT 94
[2024-04-11] MEDS: SODIUM CHLORIDE 0.9% IV 1,000 ML 100 ML IV CONT (22:58)
[2024-04-11 23:36] VITALS: PULSE 87; RESP 23; O2SAT 94
[2024-04-12] VITALS (11 sets, daily range): BP systolic 122–135; BP diastolic 69–85; PULSE 83–103; RESP 17–20; TEMP 36.7–38; O2SAT 91–99
[2024-04-12] MEDS: HYDROcodone/acetaminophen (*CRX) 5-325 MG TABLET 1 TAB PO ×3 (01:58→17:03)
[2024-04-12] MEDS: FAMOTIDINE 20 MG TABLET PO ×3 (01:59→20:11)
[2024-04-12] MEDS: BELLADONNA ALK/PHENOB ELIX 10 ML, MAG HYDROX/ALUMINUM HYD/SIMETH 30 ML, LIDOCAINE 2% VI... PO (02:02)
[2024-04-12] MEDS: ACETAMINOPHEN 325 MG TABLET 650 MG PO ×2 (06:20→13:33)
[2024-04-12 06:36] LABS: Basophils Absolute Auto 0.1 K/mm3 (0.0-0.1); Basophils Percent Auto 0.3 % (0.2-1.2); Eosinophils Percent Auto 0.3 % (0-4.4); Hematocrit 42.3 % (37.0-47.0); Hemoglobin 13.6 g/dL (12.0-15.0); Immature Granulocyte Absolute 0.22 K/mm3 (0.00-0.031); Immature Granulocyte Percent A 1.5 % (0-0.5); Lymphocytes Absolute Auto 0.82 K/mm3 (0.9-3.2); Lymphocytes Percent Auto 5.6 % (18.3-44.2); Mean Corpuscular HGB Conc 32.2 g/dl (32-36); Mean Corpuscular Hemoglobin 28.4 pg (26-34); Mean Corpuscular Volume 88.3 fl (80-100); Mean Platelet Volume 10.4 fl (7.4-10.4); Monocytes Absolute Auto 1.5 K/mm3 (0.1-0.6); Neutrophils Percent Auto 82.3 % (45.5-73.1); Platelet Count Result 261 k/mm3 (150-375); Red Blood Count 4.79 M/mm3 (4.2-5.4); Red Cell Distribution Width 13.3 % (11.5-14.5); White Blood Count 14.6 K/mm3 (4.5-10.0)
[2024-04-12 06:47] LABS: Anion Gap 6 mmol/L (4-12); Blood Urea Nitrogen 14 mg/dL (7-17); Calcium 8.2 mg/dL (8.4-10.2); Carbon Dioxide 30 mmol/L (22-30); Chloride 98 mmol/L (98-107); Estimated CRCL calculation 85 ml/min; Estimated Glomerular Filt Rate > 60; Glucose 102 mg/dL (65-110); Potassium 3.9 mmol/L (3.4-5.0); Sodium 134 mmol/L (137-145)
[2024-04-12] MEDS: UMECLIDINIUM BROMIDE 62.5 MCG ELLIPTA 1 PUFF INHALATION (07:41)
[2024-04-12] MEDS: FLUTICASONE/SALMETEROL 115-21 MCG INHALER 1 PUFF 2 PUFF INHALATION ×2 (07:42→21:14)
--- NOTE | 2024-04-12 08:03 | PM.IMPN ---
Progress Note: A&P Assessment and Plan (1) SIRS (systemic inflammatory response syndrome): Code(s): R65.10 - Systemic inflammatory response syndrome (SIRS) of non-infectious origin without acute organ dysfunction Status: Acute Assessment and Plan: Meets SIRS criteria: tachycardia, leukocytosis and febrile - fluid bolus given in the ED - suspected source: pyelonephritis - blood cultures drawn on 04/11: pending - UA: cloudy appearance with 1+ protein, 1+ ketones, 2_ blood, positive nitrates, 3+ leukocytes, 3-5 RBC, > 100 WBC, 4+ bacteria - UC obtained on 04/11: pending - Abdomen/pelvis CT: Asymmetric perinephric and periureteral stranding on the left, may represent pyelonephritis and the appropriate clinical context. (2) Pyelonephritis: Code(s): N12 - Tubulo-interstitial nephritis, not specified as acute or chronic Status: Acute Assessment and Plan: - Abdomen/pelvis CT: Asymmetric perinephric and periureteral stranding on the left, may represent pyelonephritis and the appropriate clinical context. - UA: cloudy appearance with 1+ protein, 1+ ketones, 2_ blood, positive nitrates, 3+ leukocytes, 3-5 RBC, > 100 WBC, 4+ bacteria - UC obtained on 04/11: pending - previous micro reviewed 07/31/22: ecoli pansensitive - started on rocephin on 04/11 - IV NS 100 ml/hr - analgesics (3) Acute hyponatremia: Code(s): E87.1 - Hypo-osmolality and hyponatremia Status: Acute Assessment and Plan: Patient also has some mild hyponatremia of 130 likely due to some relative hypovolemia. Patient received 1 L fluid bolus in the ER. - Na 134 on am labs - Continue on maintenance fluids at 100 mL an hour with normal saline. (4) Obstructive sleep apnea on CPAP: Onset Date: ~2020 Code(s): G47.33 - Obstructive sleep apnea (adult) (pediatric) Status: Acute Assessment and Plan: Continue auto titrating CPAP/BiPAP. (5) Chronic obstructive pulmonary disease: Qualifiers: COPD type: unspecified COPD Qualified Code(s): J44.9 - Chronic obstructive pulmonary disease, unspecified Code(s): J44.9 - Chronic obstructive pulmonary disease, unspecified Status: Acute Assessment and Plan: Continue patient's home inhalers and p.r.n. nebulizers (6) Hypertension: Code(s): I10 - Essential (primary) hypertension Status: Acute Assessment and Plan: chronic, continue home medications - amlodipine 10 mg daily - blood pressures remain stable, continue to monitor Time Spent With Patient Time with patient: 25 - 35 minutes Subjective Date/time seen: 04/12/24 08:03 Interval history: 63-year-old female with a past medical history of COPD, essential hypertension allergic rhinitis and frequent urinary tract infections who presented to the hospital with complaints of left lower back pain for 3 days. Patient is pleasant sitting up comfortably in her bed. She continues to endorse flank pain and abdominal pain. She has no other complaints denying chest pain, shortness breast, palpitations, nausea/vomiting. Review of Systems Review of Systems: All systems reviewed & are unremarkable except as noted in HPI and below Exam Narrative: AF HR 83 RR 20 Spo2 97 BP 130/69 General: female in no acute respiratory distress who is nontoxic appearing, sitting up in bed. HEENT: Normocephalic. Atraumatic. Extraocular movement intact. Sclera clear and anicteric. No facial asymmetry. Chest: Lungs are clear to auscultation bilaterally. No wheezes or crackles. CV: Heart was regular rate and rhythm. S1-S2. No murmurs, gallops, or rubs. Abd: Abdomen was soft. Slight tenderness to the hypogastric region. Nondistended. Positive bowel sounds. No organomegaly or masses. CVA tenderness. Ext: No clubbing, cyanosis, or edema. 2+ DP pulses bilaterally. Neuro: Patient is alert. Speech is clear. Objective Data Vital Signs Vital Signs: Vital Signs - 24 hr 04/11/24 17:11 04/11/24 18:28 04/11/24 19:45 Temperature 100.0 F H Pulse Rate 107 H 98 88 Respiratory Rate 20 20 18 Blood Pressure 138/85 118/98 H 118/98 H Pulse Oximetry 96 96 95 Oxygen Delivery Room Air 04/11/24 22:25 04/11/24 22:41 04/11/24 23:36 Temperature 98.6 F Pulse Rate 84 87 Respiratory Rate 20 23 H Blood Pressure 118/65 Pulse Oximetry 94 94 Oxygen Delivery Room Air Autopap 04/12/24 06:00 04/12/24 06:20 04/12/24 07:04 Temperature 100.4 F H 100.2 F H 100.0 F H Pulse Rate 102 H Respiratory Rate 20 Blood Pressure 130/85 Pulse Oximetry 99 Oxygen Delivery 04/12/24 07:42 04/12/24 07:44 Temperature Pulse Rate 95 Respiratory Rate 20 Blood Pressure Pulse Oximetry 95 Oxygen Delivery Room Air Intake/Output Intake/Output: Intake & Output 04/09/24 04/10/24 04/11/24 04/12/24 23:59 23:59 23:59 23:59 Intake Total 1050 550 Output Total 300 700 Balance 750 -150 Meds/Results Medications: Active Medications Generic Name Dose Route Start Last Admin Trade Name Freq PRN Reason Stop Dose Admin Acetaminophen 650 mg 04/12/24 01:29 04/12/24 06:20 Acetaminophen 325 Mg Tablet PO 650 mg Q4H PRN Administration Mild Pain (1-3) or Fever Hydrocodone Bitart/Acetaminophen 1 tab 04/12/24 01:30 04/12/24 01:58 Hydrocodone/Acetaminophen (*Crx) 5-325 Mg Tablet PO 1 tab Q6H PRN Administration Pain Rated 4-10 Al Hydrox/Mg Hydrox/Simethicone 30 ml 04/12/24 01:27 Mag Hydrox/Al Hydrox/Simeth 30 Ml Udc PO Q6H PRN Indigestion Albuterol/Ipratropium 3 ml 04/12/24 05:32 Ipratropium 0.5 Mg/Albuterol Sulfate 2.5 Mg Ampul.Neb 3 Ml INHALATION Q6H PRN Shortness Of Breath Or Wheezing Amlodipine Besylate 10 mg 04/12/24 09:00 Amlodipine Besylate 10 Mg Tablet PO DAILY BRAD Enoxaparin Sodium 40 mg 04/12/24 09:00 Enoxaparin 40 Mg/0.4 Ml Syringe SUB-Q DAILY BRAD Famotidine 20 mg 04/12/24 09:00 Famotidine 20 Mg Tablet PO Q12HR BRAD Ceftriaxone Sodium 1 gm in 50 mls @ 100 mls/hr 04/12/24 20:00 Rocephin 1 Gm/Ns 50 Ml IVPB Q24H BRAD Sodium Chloride 1,000 mls @ 100 mls/hr 04/11/24 22:15 04/11/24 22:58 Normal Saline Iv IV CONT 100 mls/hr .Q10H BRAD Administration Ondansetron HCl 4 mg 04/11/24 20:58 04/11/24 22:58 Ondansetron Inj 4 Mg/2 Ml Vial IV PUSH 4 mg Q4H PRN Administration Nausea Fluticasone/Salmeterol 2 puff 04/12/24 08:00 04/12/24 07:42 Fluticasone/Salmeterol 115-21 Mcg Inhaler 1 Puff INHALATION 2 puff Q12HRT BRAD Administration Umeclidinium [place] 1 puff 04/12/24 08:00 04/12/24 07:41 Umeclidinium [place] 62.5 Mcg Ellipta INHALATION 1 puff DAILYRT BRAD Administration Radiology Results: ITS Impressions Abdomen/Pelvis CT 04/11/24 20:39 IMPRESSION: Asymmetric perinephric and periureteral stranding on the left, may represent pyelonephritis and the appropriate clinical context. Labs Labs: Laboratory Results - last 24 hr 04/11/24 04/11/24 04/11/24 18:36 19:14 19:33 WBC 15.0 H RBC 4.73 Hgb 13.6 Hct 41.0 MCV 86.7 MCH 28.8 MCHC 33.2 RDW 13.3 Plt Count 284 MPV 10.2 Immature Gran % (Auto) 1.5 H Neut % (Auto) 78.5 H Lymph % (Auto) 7.0 L [place] % (Auto) 12.6 H Eos % (Auto) 0.1 Baso % (Auto) 0.3 Lymph # (Auto) 1.04 [place] # (Auto) 1.9 H Eos # (Auto) 0.0 Baso # (Auto) 0.0 Abs Immat Gran (auto) 0.22 H Absolute Neuts (auto) 11.8 H Absolute Nucleated RBC 0.000 Nucleated RBC % 0.0 Sodium 130 L Potassium 3.4 Chloride 96 L Carbon Dioxide 25 Anion Gap 9 BUN 17 Creatinine 0.72 Estim Creat Clear Calc 77 Estimated GFR > 60 Glucose 141 H Calcium 8.4 Total Bilirubin 0.7 AST 30 ALT 15 Alkaline Phosphatase 87 Total Protein 7.0 Albumin 3.5 Urine Color Yellow Urine Appearance Cloudy H Urine pH 5.5 Ur Specific [place] 1.014 Urine Protein 1+ H Urine Glucose (UA) Negative Urine Ketones 1+ H Ur Blood (Man) 2+ H Urine Nitrate Positive H Urine Bilirubin Negative Urine Urobilinogen 1.0 Leukocyte Esterase Rfl 3+ H Urine RBC 3-5 H Urine WBC >100 H Ur Squamous Epith Cells Occasional Urine Bacteria 4+ H Urine Casts 0-2 Influenza A (RT-PCR) Negative Influenza B (RT-PCR) Negative RSV (RT-PCR) Negative SARS-CoV-2 RNA (RT-PCR) Negative 04/12/24 06:03 WBC 14.6 H RBC 4.79 Hgb 13.6 Hct 42.3 MCV 88.3 MCH 28.4 MCHC 32.2 RDW 13.3 Plt Count 261 MPV 10.4 Immature Gran % (Auto) 1.5 H Neut % (Auto) 82.3 H Lymph % (Auto) 5.6 L [place] % (Auto) 10.0 H Eos % (Auto) 0.3 Baso % (Auto) 0.3 Lymph # (Auto) 0.82 L [place] # (Auto) 1.5 H Eos # (Auto) 0.0 Baso # (Auto) 0.1 Abs Immat Gran (auto) 0.22 H Absolute Neuts (auto) 12.0 H Absolute Nucleated RBC 0.000 Nucleated RBC % 0.0 Sodium 134 L Potassium 3.9 Chloride 98 Carbon Dioxide 30 Anion Gap 6 BUN 14 Creatinine 0.65 L Estim Creat Clear Calc 85 Estimated GFR > 60 Glucose 102 Calcium 8.2 L Total Bilirubin AST ALT Alkaline Phosphatase Total Protein Albumin Urine Color Urine Appearance Urine pH Ur Specific [place] Urine Protein Urine Glucose (UA) Urine Ketones Ur Blood (Man) Urine Nitrate Urine Bilirubin Urine Urobilinogen Leukocyte Esterase Rfl Urine RBC Urine WBC Ur Squamous Epith Cells Urine Bacteria Urine Casts Influenza A (RT-PCR) Influenza B (RT-PCR) RSV (RT-PCR) SARS-CoV-2 RNA (RT-PCR) Quality VTE Prophylaxis VTE prophylaxis: pharmacologic ordered
[2024-04-12] MEDS: ENOXAPARIN 40 MG/0.4 ML SYRINGE SUB-Q (08:26)
[2024-04-12] MEDS: amLODIPine BESYLATE 10 MG TABLET PO (08:26)
[2024-04-12] MEDS: SODIUM CHLORIDE 0.9% IV 1,000 ML 100 ML IV CONT ×2 (08:27→18:23)
[2024-04-12] MEDS: ONDANSETRON INJ 4 MG/2 ML VIAL IV PUSH (13:29)
[2024-04-13 01:33] VITALS: PULSE 98; O2SAT 92
[2024-04-13 05:15] VITALS: BP 132/77; PULSE 104; RESP 20; TEMP 36.9; O2SAT 95
[2024-04-13] MEDS: SODIUM CHLORIDE 0.9% IV 1,000 ML 100 ML IV CONT (05:55)
[2024-04-13 06:27] LABS: Basophils Absolute Auto 0.1 K/mm3 (0.0-0.1); Basophils Percent Auto 0.6 % (0.2-1.2); Eosinophils Absolute Auto 0.1 K/mm3 (0-0.3); Eosinophils Percent Auto 0.7 % (0-4.4); Hematocrit 37.3 % (37.0-47.0); Hemoglobin 11.9 g/dL (12.0-15.0); Immature Granulocyte Absolute 0.15 K/mm3 (0.00-0.031); Immature Granulocyte Percent A 1.7 % (0-0.5); Lymphocytes Absolute Auto 0.89 K/mm3 (0.9-3.2); Lymphocytes Percent Auto 10.3 % (18.3-44.2); Mean Corpuscular HGB Conc 31.9 g/dl (32-36); Mean Corpuscular Hemoglobin 28.4 pg (26-34); Mean Platelet Volume 10.5 fl (7.4-10.4); Monocytes Absolute Auto 1.2 K/mm3 (0.1-0.6); Monocytes Percent Auto 13.6 % (2.6-8.5); Neutrophils Absolute Auto 6.3 K/mm3 (1.3-6.7); Neutrophils Percent Auto 73.1 % (45.5-73.1); Platelet Count Result 260 k/mm3 (150-375); Red Blood Count 4.19 M/mm3 (4.2-5.4); Red Cell Distribution Width 13.3 % (11.5-14.5); White Blood Count 8.6 K/mm3 (4.5-10.0)
[2024-04-13 06:44] LABS: Alanine Aminotransferase 16 U/L (6-35); Albumin Level 2.9 g/dL (3.5-5.1); Alkaline Phosphatase 74 U/L (38-126); Anion Gap 5 mmol/L (4-12); Aspartate Amino Transferase 35 U/L (14-36); Bilirubin,Total 0.4 mg/dL (0.2-1.3); Blood Urea Nitrogen 7 mg/dL (7-17); Calcium 7.9 mg/dL (8.4-10.2); Carbon Dioxide 29 mmol/L (22-30); Chloride 99 mmol/L (98-107); Estimated CRCL calculation 87 ml/min; Estimated Glomerular Filt Rate > 60; Glucose 89 mg/dL (65-110); Potassium 3.3 mmol/L (3.4-5.0); Sodium 133 mmol/L (137-145)
--- NOTE | 2024-04-13 07:21 | P.PNIM_ITS ---
Progress Note: A&P Assessment and Plan (1) SIRS (systemic inflammatory response syndrome): Code(s): R65.10 - Systemic inflammatory response syndrome (SIRS) of non-infectious origin without acute organ dysfunction Status: Acute Assessment and Plan: Meets SIRS criteria: tachycardia, leukocytosis and febrile - fluid bolus given in the ED - suspected source: pyelonephritis - blood cultures drawn on 04/11: NGTD - UA: cloudy appearance with 1+ protein, 1+ ketones, 2_ blood, positive nitrates, 3+ leukocytes, 3-5 RBC, > 100 WBC, 4+ bacteria - UC obtained on 04/11: Ecoli - pansensitive - Abdomen/pelvis CT: Asymmetric perinephric and periureteral stranding on the left, may represent pyelonephritis and the appropriate clinical context. 04/12: Patient remains febrile with leukocytosis, however heart rate has improved. 04/13: Patients leukocytosis has resolved. She remains afebrile. (2) Pyelonephritis: Code(s): N12 - Tubulo-interstitial nephritis, not specified as acute or chronic Status: Acute Assessment and Plan: - Abdomen/pelvis CT: Asymmetric perinephric and periureteral stranding on the left, may represent pyelonephritis and the appropriate clinical context. - UA: cloudy appearance with 1+ protein, 1+ ketones, 2_ blood, positive nitrates, 3+ leukocytes, 3-5 RBC, > 100 WBC, 4+ bacteria - UC obtained on 04/11: Ecoli - pansensitive - previous micro reviewed 07/31/22: ecoli pansensitive - started on rocephin on 04/11, transitioned to augmentin on 04/13 - analgesics (3) Acute hyponatremia: Code(s): E87.1 - Hypo-osmolality and hyponatremia Status: Acute Assessment and Plan: Patient also has some mild hyponatremia of 130 likely due to some relative hypovolemia. Patient received 1 L fluid bolus in the ER. - Na 133 on am labs - DC maintenance fluids at 100 mL an hour with normal saline. (4) Obstructive sleep apnea on CPAP: Onset Date: ~2020 Code(s): G47.33 - Obstructive sleep apnea (adult) (pediatric) Status: Acute Assessment and Plan: Continue auto titrating CPAP/BiPAP. (5) Chronic obstructive pulmonary disease: Qualifiers: COPD type: unspecified COPD Qualified Code(s): J44.9 - Chronic obstructive pulmonary disease, unspecified Code(s): J44.9 - Chronic obstructive pulmonary disease, unspecified Status: Acute Assessment and Plan: Continue patient's home inhalers and p.r.n. nebulizers (6) Hypertension: Code(s): I10 - Essential (primary) hypertension Status: Acute Assessment and Plan: chronic, continue home medications - amlodipine 10 mg daily - blood pressures remain stable, continue to monitor Time Spent With Patient Time with patient: 25 - 35 minutes Subjective Date/time seen: 04/13/24 07:21 Interval history: 63-year-old female with a past medical history of COPD, essential hypertension allergic rhinitis and frequent urinary tract infections who presented to the hospital with complaints of left lower back pain for 3 days. Patient is pleasant lying in bed. She states that her pain has improved. She notes that she has been having bleeding on the back of her pad that she believe is coming from her rectum. She has not had a bowel movement but denies prior bloody stools. She has a history of hemorrhoids and notes that these occasionally bleed but this feels different . She has no other complaints denying chest pain, shortness from palpitations, nausea/vomiting, abdominal pain. Review of Systems Review of Systems: All systems reviewed & are unremarkable except as noted in HPI and below Exam Narrative: AF HR 90 RR 20 SpO2 95 BP 134/82 General: female in no acute respiratory distress who is nontoxic appearing, sitting up in bed. HEENT: Normocephalic. Atraumatic. Extraocular movement intact. Sclera clear and anicteric. No facial asymmetry. Chest: Lungs are clear to auscultation bilaterally. No wheezes or crackles. CV: Heart was regular rate and rhythm. S1-S2. No murmurs, gallops, or rubs. Abd: Abdomen was soft. Slight tenderness to the hypogastric region. Nondistended. Positive bowel sounds. Ext: No clubbing, cyanosis, or edema. 2+ DP pulses bilaterally. Neuro: Patient is alert. Speech is clear. Objective Data Vital Signs Vital Signs: Vital Signs - 24 hr 04/12/24 07:42 04/12/24 07:44 04/12/24 08:00 Temperature Pulse Rate 95 Respiratory Rate 20 Blood Pressure Pulse Oximetry 95 Oxygen Delivery Room Air Room Air 04/12/24 08:30 04/12/24 13:33 04/12/24 14:00 Temperature 98.1 F 100.3 F H 98.6 F Pulse Rate 83 Respiratory Rate 20 Blood Pressure 122/85 130/69 Pulse Oximetry 97 Oxygen Delivery 04/12/24 15:18 04/12/24 19:59 04/12/24 20:00 Temperature 98.0 F 98.9 F Pulse Rate 93 Respiratory Rate 17 Blood Pressure 135/78 Pulse Oximetry 95 Oxygen Delivery Room Air 04/12/24 23:33 04/13/24 01:33 04/13/24 05:15 Temperature 98.4 F Pulse Rate 103 H 98 104 H Respiratory Rate 20 Blood Pressure 132/77 Pulse Oximetry 91 92 95 Oxygen Delivery CPAP CPAP Intake/Output Intake/Output: Intake & Output 04/10/24 04/11/24 04/12/24 04/13/24 23:59 23:59 23:59 23:59 Intake Total 1050 5076.6 1550 Output Total 300 900 700 Balance 750 4176.6 850 Meds/Results Medications: Active Medications Generic Name Dose Route Start Last Admin Trade Name Freq PRN Reason Stop Dose Admin Acetaminophen 650 mg 04/12/24 01:29 04/12/24 13:33 Acetaminophen 325 Mg Tablet PO 650 mg Q4H PRN Administration Mild Pain (1-3) or Fever Hydrocodone Bitart/Acetaminophen 1 tab 04/12/24 01:30 04/12/24 17:03 Hydrocodone/Acetaminophen (*Crx) 5-325 Mg Tablet PO 1 tab Q6H PRN Administration Pain Rated 4-10 Al Hydrox/Mg Hydrox/Simethicone 30 ml 04/12/24 01:27 Mag Hydrox/Al Hydrox/Simeth 30 Ml Udc PO Q6H PRN Indigestion Albuterol/Ipratropium 3 ml 04/12/24 05:32 Ipratropium 0.5 Mg/Albuterol Sulfate 2.5 Mg Ampul.Neb 3 Ml INHALATION Q6H PRN Shortness Of Breath Or Wheezing Amlodipine Besylate 10 mg 04/12/24 09:00 04/12/24 08:26 Amlodipine Besylate 10 Mg Tablet PO 10 mg DAILY BRAD Administration Enoxaparin Sodium 40 mg 04/12/24 09:00 04/12/24 08:26 Enoxaparin 40 Mg/0.4 Ml Syringe SUB-Q 40 mg DAILY BRAD Administration Famotidine 20 mg 04/12/24 09:00 04/12/24 20:11 Famotidine 20 Mg Tablet PO 20 mg Q12HR BRAD Administration Ceftriaxone Sodium 1 gm in 50 mls @ 100 mls/hr 04/12/24 20:00 04/12/24 20:11 Rocephin 1 Gm/Ns 50 Ml IVPB 100 mls/hr Q24H BRAD Administration Sodium Chloride 1,000 mls @ 100 mls/hr 04/11/24 22:15 04/13/24 05:55 Normal Saline Iv IV CONT 100 mls/hr .Q10H BRAD Administration Ondansetron HCl 4 mg 04/11/24 20:58 04/12/24 13:29 Ondansetron Inj 4 Mg/2 Ml Vial IV PUSH 4 mg Q4H PRN Administration Nausea Fluticasone/Salmeterol 2 puff 04/12/24 08:00 04/12/24 21:14 Fluticasone/Salmeterol 115-21 Mcg Inhaler 1 Puff INHALATION 2 puff Q12HRT BRAD Administration Umeclidinium [place] 1 puff 04/12/24 08:00 04/12/24 07:41 Umeclidinium [place] 62.5 Mcg Ellipta INHALATION 1 puff DAILYRT BRAD Administration Radiology Results: ITS Impressions Abdomen/Pelvis CT 04/11/24 20:39 IMPRESSION: Asymmetric perinephric and periureteral stranding on the left, may represent pyelonephritis and the appropriate clinical context. Labs Labs: Laboratory Results - last 24 hr 04/13/24 05:58 WBC 8.6 RBC 4.19 L Hgb 11.9 L Hct 37.3 MCV 89.0 MCH 28.4 MCHC 31.9 L RDW 13.3 Plt Count 260 MPV 10.5 H Immature Gran % (Auto) 1.7 H Neut % (Auto) 73.1 Lymph % (Auto) 10.3 L [place] % (Auto) 13.6 H Eos % (Auto) 0.7 Baso % (Auto) 0.6 Lymph # (Auto) 0.89 L [place] # (Auto) 1.2 H Eos # (Auto) 0.1 Baso # (Auto) 0.1 Abs Immat Gran (auto) 0.15 H Absolute Neuts (auto) 6.3 Absolute Nucleated RBC 0.000 Nucleated RBC % 0.0 Sodium 133 L Potassium 3.3 L Chloride 99 Carbon Dioxide 29 Anion Gap 5 BUN 7 D Creatinine 0.64 L Estim Creat Clear Calc 87 Estimated GFR > 60 Glucose 89 Calcium 7.9 L Total Bilirubin 0.4 AST 35 ALT 16 Alkaline Phosphatase 74 Total Protein 6.0 L Albumin 2.9 L Quality VTE Prophylaxis VTE prophylaxis: pharmacologic ordered
[2024-04-13 08:09] VITALS: BP 134/82; PULSE 90; TEMP 36.7
[2024-04-13] MEDS: FAMOTIDINE 20 MG TABLET PO ×2 (08:10→19:50)
[2024-04-13] MEDS: POTASSIUM CHLORIDE 20 MEQ ER TABLET 40 MEQ PO (08:10)
[2024-04-13] MEDS: amLODIPine BESYLATE 10 MG TABLET PO (08:10)
[2024-04-13] MEDS: HYDROcodone/acetaminophen (*CRX) 5-325 MG TABLET 1 TAB PO ×2 (08:10→14:16)
[2024-04-13] MEDS: ENOXAPARIN 40 MG/0.4 ML SYRINGE SUB-Q (08:11)
[2024-04-13] MEDS: FLUTICASONE/SALMETEROL 115-21 MCG INHALER 1 PUFF 2 PUFF INHALATION ×2 (09:25→22:15)
[2024-04-13] MEDS: UMECLIDINIUM BROMIDE 62.5 MCG ELLIPTA 1 PUFF INHALATION (09:34)
[2024-04-13 14:00] VITALS: BP 112/74; PULSE 90; RESP 18; TEMP 37.2; O2SAT 97
[2024-04-13] MEDS: ONDANSETRON INJ 4 MG/2 ML VIAL IV PUSH (14:16)
[2024-04-13] MEDS: ACETAMINOPHEN 325 MG TABLET 650 MG PO (18:39)
[2024-04-13] MEDS: AMOXICILLIN/CLAVULANATE K 875-125 MG TAB 1 TABLET PO (19:48)
[2024-04-13] MEDS: SENNA/DOCUSATE SODIUM TABLET 1 TAB PO (19:48)
[2024-04-13 20:14] VITALS: BP 114/71; PULSE 87; RESP 18; TEMP 36.8; O2SAT 94
[2024-04-13 22:35] VITALS: PULSE 99; O2SAT 94
[2024-04-14] MEDS: HYDROcodone/acetaminophen (*CRX) 5-325 MG TABLET 1 TAB PO ×3 (02:27→20:02)
[2024-04-14 04:52] VITALS: BP 127/84; PULSE 89; RESP 17; TEMP 36.7; O2SAT 94
[2024-04-14 06:48] LABS: Basophils Percent Auto 0.5 % (0.2-1.2); Eosinophils Absolute Auto 0.4 K/mm3 (0-0.3); Eosinophils Percent Auto 4.1 % (0-4.4); Hematocrit 37.1 % (37.0-47.0); Hemoglobin 12.1 g/dL (12.0-15.0); Immature Granulocyte Percent A 1.2 % (0-0.5); Lymphocytes Percent Auto 12.9 % (18.3-44.2); Mean Corpuscular HGB Conc 32.6 g/dl (32-36); Mean Corpuscular Hemoglobin 28.5 pg (26-34); Mean Corpuscular Volume 87.3 fl (80-100); Mean Platelet Volume 10.4 fl (7.4-10.4); Monocytes Absolute Auto 1.1 K/mm3 (0.1-0.6); Monocytes Percent Auto 13.3 % (2.6-8.5); Neutrophils Absolute Auto 5.8 K/mm3 (1.3-6.7); Platelet Count Result 290 k/mm3 (150-375); Red Blood Count 4.25 M/mm3 (4.2-5.4); Red Cell Distribution Width 13.4 % (11.5-14.5); White Blood Count 8.5 K/mm3 (4.5-10.0)
[2024-04-14 06:59] LABS: Alanine Aminotransferase 16 U/L (6-35); Albumin Level 2.9 g/dL (3.5-5.1); Alkaline Phosphatase 71 U/L (38-126); Anion Gap 6 mmol/L (4-12); Aspartate Amino Transferase 26 U/L (14-36); Bilirubin,Total 0.4 mg/dL (0.2-1.3); Blood Urea Nitrogen 5 mg/dL (7-17); Calcium 8.4 mg/dL (8.4-10.2); Carbon Dioxide 30 mmol/L (22-30); Chloride 99 mmol/L (98-107); Estimated CRCL calculation 98 ml/min; Estimated Glomerular Filt Rate > 60; Glucose 92 mg/dL (65-110); Potassium 3.3 mmol/L (3.4-5.0); Sodium 135 mmol/L (137-145)
[2024-04-14] MEDS: FLUTICASONE/SALMETEROL 115-21 MCG INHALER 1 PUFF 2 PUFF INHALATION ×2 (07:32→20:24)
[2024-04-14] MEDS: UMECLIDINIUM BROMIDE 62.5 MCG ELLIPTA 1 PUFF INHALATION (07:33)
[2024-04-14 07:35] VITALS: O2SAT 95
[2024-04-14 08:10] VITALS: BP 110/72; PULSE 87
[2024-04-14] MEDS: AMOXICILLIN/CLAVULANATE K 875-125 MG TAB 1 TABLET PO ×2 (08:11→20:02)
[2024-04-14] MEDS: ENOXAPARIN 40 MG/0.4 ML SYRINGE SUB-Q (08:11)
[2024-04-14] MEDS: ONDANSETRON INJ 4 MG/2 ML VIAL IV PUSH (08:11)
[2024-04-14] MEDS: amLODIPine BESYLATE 10 MG TABLET PO (08:11)
[2024-04-14] MEDS: FAMOTIDINE 20 MG TABLET PO ×2 (08:11→20:02)
[2024-04-14] MEDS: POTASSIUM CHLORIDE 20 MEQ ER TABLET 40 MEQ PO (09:35)
[2024-04-14] MEDS: polyethylene glycoL 3350 17 GM POWD.PACK PO (12:44)
[2024-04-14 14:00] VITALS: BP 120/88; PULSE 87; RESP 20; TEMP 37.3; O2SAT 94
--- NOTE | 2024-04-14 15:03 | P.PNIM_ITS ---
Progress Note: A&P Assessment and Plan (1) SIRS (systemic inflammatory response syndrome): Code(s): R65.10 - Systemic inflammatory response syndrome (SIRS) of non-infectious origin without acute organ dysfunction Status: Acute Assessment and Plan: Meets SIRS criteria: tachycardia, leukocytosis and febrile - fluid bolus given in the ED - suspected source: pyelonephritis - blood cultures drawn on 04/11: NGTD - UA: cloudy appearance with 1+ protein, 1+ ketones, 2_ blood, positive nitrates, 3+ leukocytes, 3-5 RBC, > 100 WBC, 4+ bacteria - UC obtained on 04/11: Ecoli - pansensitive - Abdomen/pelvis CT: Asymmetric perinephric and periureteral stranding on the left, may represent pyelonephritis and the appropriate clinical context. 04/12: Patient remains febrile with leukocytosis, however heart rate has improved. 04/14: WBC WNL. She remains afebrile. (2) Pyelonephritis: Code(s): N12 - Tubulo-interstitial nephritis, not specified as acute or chronic Status: Acute Assessment and Plan: - Abdomen/pelvis CT: Asymmetric perinephric and periureteral stranding on the left, may represent pyelonephritis and the appropriate clinical context. - UA: cloudy appearance with 1+ protein, 1+ ketones, 2_ blood, positive nitrates, 3+ leukocytes, 3-5 RBC, > 100 WBC, 4+ bacteria - UC obtained on 04/11: Ecoli - pansensitive - previous micro reviewed 07/31/22: ecoli pansensitive - started on rocephin on 04/11, transitioned to augmentin on 04/13 - analgesics (3) Constipation: Code(s): K59.00 - Constipation, unspecified Status: Acute Assessment and Plan: Patient notes increased abdominal pain and still has not had any bowel movements, last known was on wednesday. Endorse passing flatus. She states that she continues to have bright red blood per rectum when wiping who again likely secondary to her known hemorrhoids. However she noted with quarter sized blood clots per rectum that has since resolved. - Occult ordered - senna and miralax for bowel regimen - monitor (4) Acute hyponatremia: Code(s): E87.1 - Hypo-osmolality and hyponatremia Status: Acute Assessment and Plan: Patient also has some mild hyponatremia of 130 likely due to some relative hypo volemia. Patient received 1 L fluid bolus in the ER. - Na 135 on am labs - DC maintenance fluids at 100 mL an hour with normal saline. (5) Obstructive sleep apnea on CPAP: Onset Date: ~2020 Code(s): G47.33 - Obstructive sleep apnea (adult) (pediatric) Status: Acute Assessment and Plan: Continue auto titrating CPAP/BiPAP. (6) Chronic obstructive pulmonary disease: Qualifiers: COPD type: unspecified COPD Qualified Code(s): J44.9 - Chronic obstructive pulmonary disease, unspecified Code(s): J44.9 - Chronic obstructive pulmonary disease, unspecified Status: Acute Assessment and Plan: Continue patient's home inhalers and p.r.n. nebulizers (7) Hypertension: Code(s): I10 - Essential (primary) hypertension Status: Acute Assessment and Plan: chronic, continue home medications - amlodipine 10 mg daily - blood pressures remain stable, continue to monitor Time Spent With Patient Time with patient: 25 - 35 minutes Subjective Date/time seen: 04/14/24 15:03 Interval history: 63-year-old female with a past medical history of COPD, essential hypertension allergic rhinitis and frequent urinary tract infections who presented to the hospital with complaints of left lower back pain for 3 days. Patient is pleasant lying in bed. Patient notes increased abdominal pain and still has not had any bowel movements. Endorse passing flatus. She states that she continues to have bright red blood per rectum when wiping who again likely secondary to her known hemorrhoids. However she noted with quarter sized blood clots per rectum that has since resolved. She has no other complaints denies chest pain, shortness a breath, palpitations, and nausea/vomiting. Review of Systems Review of Systems: All systems reviewed & are unremarkable except as noted in HPI and below Exam Narrative: AF HR 87 RR 20 SpO2 94 BP 120/88 General: female in no acute respiratory distress who is nontoxic appearing, sitting up in bed. HEENT: Normocephalic. Atraumatic. Extraocular movement intact. Sclera clear and anicteric. No facial asymmetry. Chest: Lungs are clear to auscultation bilaterally. No wheezes or crackles. CV: Heart was regular rate and rhythm. S1-S2. No murmurs, gallops, or rubs. Abd: Abdomen was soft. Slight tenderness to the periumbilical. Nondistended. Positive bowel sounds. Ext: No clubbing, cyanosis, or edema. 2+ DP pulses bilaterally. Neuro: Patient is alert. Speech is clear. Objective Data Vital Signs Vital Signs: Vital Signs - 24 hr 04/13/24 20:00 04/13/24 20:14 04/13/24 22:35 Temperature 98.2 F Pulse Rate 87 99 Respiratory Rate 18 Blood Pressure 114/71 Pulse Oximetry 94 94 Oxygen Delivery Room Air CPAP 04/14/24 04:52 04/14/24 07:35 04/14/24 08:00 Temperature 98.1 F Pulse Rate 89 Respiratory Rate 17 Blood Pressure 127/84 Pulse Oximetry 94 95 Oxygen Delivery Room Air Room Air 04/14/24 08:10 04/14/24 14:00 Temperature 99.2 F Pulse Rate 87 87 Respiratory Rate 20 Blood Pressure 110/72 120/88 Pulse Oximetry 94 Oxygen Delivery Intake/Output Intake/Output: Intake & Output 04/11/24 04/12/24 04/13/24 04/14/24 23:59 23:59 23:59 23:59 Intake Total 1050 5076.6 2292 673 Output Total 300 900 700 Balance 750 4176.6 1592 673 Meds/Results Medications: Active Medications Generic Name Dose Route Start Last Admin Trade Name Freq PRN Reason Stop Dose Admin Acetaminophen 650 mg 04/12/24 01:29 04/13/24 18:39 Acetaminophen 325 Mg Tablet PO 650 mg Q4H PRN Administration Mild Pain (1-3) or Fever Hydrocodone Bitart/Acetaminophen 1 tab 04/12/24 01:30 04/14/24 08:11 Hydrocodone/Acetaminophen (*Crx) 5-325 Mg Tablet PO 1 tab Q6H PRN Administration Pain Rated 4-10 Al Hydrox/Mg Hydrox/Simethicone 30 ml 04/12/24 01:27 Mag Hydrox/Al Hydrox/Simeth 30 Ml Udc PO Q6H PRN Indigestion Albuterol/Ipratropium 3 ml 04/12/24 05:32 Ipratropium 0.5 Mg/Albuterol Sulfate 2.5 Mg Ampul.Neb 3 Ml INHALATION Q6H PRN Shortness Of Breath Or Wheezing Amlodipine Besylate 10 mg 04/12/24 09:00 04/14/24 08:11 Amlodipine Besylate 10 Mg Tablet PO 10 mg DAILY BRAD Administration Amoxicillin/Clavulanate Potassium 1 tablet 04/13/24 21:00 04/14/24 08:11 Amoxicillin/Clavulanate K 875-125 Mg Tab PO 04/20/24 20:00 1 tablet Q12HR BRAD Administration Enoxaparin Sodium 40 mg 04/12/24 09:00 04/14/24 08:11 Enoxaparin 40 Mg/0.4 Ml Syringe SUB-Q 40 mg DAILY BRAD Administration Famotidine 20 mg 04/12/24 09:00 04/14/24 08:11 Famotidine 20 Mg Tablet PO 20 mg Q12HR BRAD Administration Ondansetron HCl 4 mg 04/11/24 20:58 04/14/24 08:11 Ondansetron Inj 4 Mg/2 Ml Vial IV PUSH 4 mg Q4H PRN Administration Nausea Polyethylene Glycol 17 gm 04/14/24 12:25 04/14/24 12:44 Polyethylene Glycol 3350 17 Gm Powd.Pack PO 17 gm QAM BRAD Administration Fluticasone/Salmeterol 2 puff 04/12/24 08:00 04/14/24 07:32 Fluticasone/Salmeterol 115-21 Mcg Inhaler 1 Puff INHALATION 2 puff Q12HRT BRAD Administration Senna/Docusate Sodium 1 tab 04/13/24 21:00 04/13/24 19:48 Senna/Docusate Sodium Tablet PO 1 tab HS BRAD Administration Umeclidinium [place] 1 puff 04/12/24 08:00 04/14/24 07:33 Umeclidinium [place] 62.5 Mcg Ellipta INHALATION 1 puff DAILYRT BRAD Administration Radiology Results: ITS Impressions Abdomen/Pelvis CT 04/11/24 20:39 IMPRESSION: Asymmetric perinephric and periureteral stranding on the left, may represent pyelonephritis and the appropriate clinical context. Abdomen X-Ray 04/14/24 13:00 IMPRESSION: 1: No acute abdominal abnormality identified. Labs Labs: Laboratory Results - last 24 hr 04/14/24 04/14/24 06:24 06:25 WBC 8.5 RBC 4.25 Hgb 12.1 Hct 37.1 MCV 87.3 MCH 28.5 MCHC 32.6 RDW 13.4 Plt Count 290 MPV 10.4 Immature Gran % (Auto) 1.2 H Neut % (Auto) 68.0 Lymph % (Auto) 12.9 L [place] % (Auto) 13.3 H Eos % (Auto) 4.1 Baso % (Auto) 0.5 Lymph # (Auto) 1.10 [place] # (Auto) 1.1 H Eos # (Auto) 0.4 H Baso # (Auto) 0.0 Abs Immat Gran (auto) 0.10 H Absolute Neuts (auto) 5.8 Absolute Nucleated RBC 0.000 Nucleated RBC % 0.0 Sodium 135 L Potassium 3.3 L Chloride 99 Carbon Dioxide 30 Anion Gap 6 BUN 5 L Creatinine 0.56 L Estim Creat Clear Calc 98 Estimated GFR > 60 Glucose 92 Calcium 8.4 Total Bilirubin 0.4 AST 26 ALT 16 Alkaline Phosphatase 71 Total Protein 6.0 L Albumin 2.9 L Quality VTE Prophylaxis VTE prophylaxis: pharmacologic ordered
[2024-04-14 18:30] LABS: IFOB Positive Control Positive; Immunochemical Fecal Occult Bl Positive (N)
[2024-04-14 20:53] VITALS: BP 117/75; PULSE 87; RESP 18; TEMP 36.6; O2SAT 93
[2024-04-14 21:45] VITALS: O2SAT 94
[2024-04-15 02:53] VITALS: PULSE 98; O2SAT 98
[2024-04-15] MEDS: HYDROcodone/acetaminophen (*CRX) 5-325 MG TABLET 1 TAB PO (05:38)
[2024-04-15 06:00] VITALS: BP 118/76; PULSE 86; RESP 18; TEMP 36.6; O2SAT 93
[2024-04-15 06:35] LABS: Basophils Percent Auto 0.5 % (0.2-1.2); Eosinophils Absolute Auto 0.5 K/mm3 (0-0.3); Eosinophils Percent Auto 5.9 % (0-4.4); Hemoglobin 12.6 g/dL (12.0-15.0); Immature Granulocyte Absolute 0.09 K/mm3 (0.00-0.031); Lymphocytes Absolute Auto 1.26 K/mm3 (0.9-3.2); Lymphocytes Percent Auto 14.6 % (18.3-44.2); Mean Corpuscular HGB Conc 32.3 g/dl (32-36); Mean Corpuscular Hemoglobin 28.4 pg (26-34); Mean Platelet Volume 10.6 fl (7.4-10.4); Monocytes Percent Auto 11.1 % (2.6-8.5); Neutrophils Absolute Auto 5.8 K/mm3 (1.3-6.7); Neutrophils Percent Auto 66.9 % (45.5-73.1); Platelet Count Result 338 k/mm3 (150-375); Red Blood Count 4.43 M/mm3 (4.2-5.4); Red Cell Distribution Width 13.5 % (11.5-14.5); White Blood Count 8.6 K/mm3 (4.5-10.0)
[2024-04-15 06:44] LABS: Alanine Aminotransferase 18 U/L (6-35); Albumin Level 3.2 g/dL (3.5-5.1); Alkaline Phosphatase 76 U/L (38-126); Anion Gap 7 mmol/L (4-12); Aspartate Amino Transferase 31 U/L (14-36); Bilirubin,Total 0.5 mg/dL (0.2-1.3); Blood Urea Nitrogen 6 mg/dL (7-17); Calcium 8.9 mg/dL (8.4-10.2); Carbon Dioxide 32 mmol/L (22-30); Chloride 98 mmol/L (98-107); Estimated CRCL calculation 96 ml/min; Estimated Glomerular Filt Rate > 60; Glucose 84 mg/dL (65-110); Potassium 3.8 mmol/L (3.4-5.0); Sodium 137 mmol/L (137-145)
[2024-04-15 07:22] VITALS: O2SAT 95
[2024-04-15] MEDS: UMECLIDINIUM BROMIDE 62.5 MCG ELLIPTA 1 PUFF INHALATION (07:22)
[2024-04-15] MEDS: FLUTICASONE/SALMETEROL 115-21 MCG INHALER 1 PUFF 2 PUFF INHALATION (07:24)
[2024-04-15] MEDS: amLODIPine BESYLATE 10 MG TABLET PO (09:33)
[2024-04-15] MEDS: AMOXICILLIN/CLAVULANATE K 875-125 MG TAB 1 TABLET PO (09:33)
[2024-04-15] MEDS: ENOXAPARIN 40 MG/0.4 ML SYRINGE SUB-Q (09:33)
[2024-04-15] MEDS: FAMOTIDINE 20 MG TABLET PO (09:33)
--- NOTE | 2024-04-15 11:21 | P.DS_ITS ---
DS: Admitting Diagnosis Discharge Date 04/15/2023 Admitting Diagnosis SIRS Pyelonephritis Constipation Acute hyponatremia ANGEL COPD Hypertension DS: Discharge Diagnosis Discharge Diagnosis (1) SIRS (systemic inflammatory response syndrome): Code(s): R65.10 - Systemic inflammatory response syndrome (SIRS) of non-infectious origin without acute organ dysfunction Status: Acute (2) Pyelonephritis: Code(s): N12 - Tubulo-interstitial nephritis, not specified as acute or chronic Status: Acute (3) Constipation: Code(s): K59.00 - Constipation, unspecified Status: Acute (4) Acute hyponatremia: Code(s): E87.1 - Hypo-osmolality and hyponatremia Status: Acute (5) Obstructive sleep apnea on CPAP: Onset Date: ~2020 Code(s): G47.33 - Obstructive sleep apnea (adult) (pediatric) Status: Acute (6) Chronic obstructive pulmonary disease: Qualifiers: COPD type: unspecified COPD Qualified Code(s): J44.9 - Chronic obstructive pulmonary disease, unspecified Code(s): J44.9 - Chronic obstructive pulmonary disease, unspecified Status: Acute (7) Hypertension: Code(s): I10 - Essential (primary) hypertension Status: Acute DS: Summary Hospital Course Reason for hospitalization: SIRS Pyelonephritis Constipation Acute hyponatremia ANGEL COPD Hypertension Hospital Course: 63-year-old female with a past medical history of COPD, essential hypertension allergic rhinitis and frequent urinary tract infections who presented to the hospital with complaints of left lower back pain. On admission patient meeting SIRs criteria, given sepsis bolus. She was mildly hyponatremic on admission which resolved during inpatient stay. UA concerning for infection. Urine culture grew Ecoli. CT abdomen/pelvis obtained and showed asymmetric perinephric and periureteral stranding on the left, may represent pyelonephritis and the appropriate clinical context. Blood cultures negative. Started on antibiotics at that time and transitioned to orals to complete course at time of discharge. During inpatient stay she noted bright red blood per rectum when wiping likely secondary to her known hemorrhoids. However she noted quarter sized blood clots per rectum that have since resolved. H/H remained stable. Discussed with patient that she will need to follow up with GI in the outpatient setting. She states understanding. At time of discharge patient had no complaints denying chest pain, shortness breast, palpitations, nausea/vomiting, abdominal pain. Patient discharged home in stable condition. She is to follow up with her primary care provider in 1 week and obtain a GI follow-up. Status at Discharge Functional status at discharge: independent ambulation Time Spent with Patient Time attestation: Total time spent providing and/or coordinating discharge services: Time spent: Greater than 30 minutes Exam Narrative: AF HR 86 RR 18 SpO2 95 BP 118/76 General: female in no acute respiratory distress who is nontoxic appearing, sitting up in bed. HEENT: Normocephalic. Atraumatic. Extraocular movement intact. Sclera clear and anicteric. No facial asymmetry. Chest: Lungs are clear to auscultation bilaterally. No wheezes or crackles. CV: Heart was regular rate and rhythm. S1-S2. No murmurs, gallops, or rubs. Abd: Abdomen was soft. Nontender. Nondistended. Positive bowel sounds. Ext: No clubbing, cyanosis, or edema. 2+ DP pulses bilaterally. Neuro: Patient is alert. Speech is clear. DS: Data Data Completed and Pending Completed studies during hospitalization: Abdomen XR Abdomen/pelvis CT Labs on day of discharge: Labs from last 24 hours 04/15/24 04/14/24 05:38 17:30 WBC 8.6 RBC 4.43 Hgb 12.6 Hct 39.0 MCV 88.0 MCH 28.4 MCHC 32.3 RDW 13.5 Plt Count 338 MPV 10.6 H Immature Gran % (Auto) 1.0 H Neut % (Auto) 66.9 Lymph % (Auto) 14.6 L [place] % (Auto) 11.1 H Eos % (Auto) 5.9 H Baso % (Auto) 0.5 Lymph # (Auto) 1.26 [place] # (Auto) 1.0 H Eos # (Auto) 0.5 H Baso # (Auto) 0.0 Abs Immat Gran (auto) 0.09 H Absolute Neuts (auto) 5.8 Absolute Nucleated RBC 0.000 Nucleated RBC % 0.0 Sodium 137 Potassium 3.8 Chloride 98 Carbon Dioxide 32 H Anion Gap 7 BUN 6 L Creatinine 0.57 L Estim Creat Clear Calc 96 Estimated GFR > 60 Glucose 84 Calcium 8.9 Total Bilirubin 0.5 AST 31 ALT 18 Alkaline Phosphatase 76 Total Protein 6.0 L Albumin 3.2 L Stl Occult Blood (IFOB) Positive H Preliminary micro results at discharge 04/11/24 22:17 Blood Culture - Preliminary Blood 04/11/24 22:17 Blood Culture - Preliminary Blood Discharge Plan Discharge Attending physician on discharge: Tiesha Boroks Consulting providers: Andria Laws Discharging Clinician: Andria Laws Anticipated Discharge Date/Time: 04/15/24 11:17 Patient Disposition: Home, Self-Care Activity: as tolerated Diet: as tolerated and heart healthy Discharge Instructions: Discharge disposition: Patient admitted to the hospital for pyelonephritis secondary to urinary tract infection Take all medications as prescribed even if feeling better Augmentin twice a day, course to be completed on 04/20 Attached is information on this medication Eat well balanced meals and stay hydrated Keep active to remain strong Avoid use of diapers or pads Good julian Care every 2 hours Trend urine output Patient had a positive fecal occult likely from hemorrhoids as blood levels remained stable Follow up with GI in the outpatient for possible colonoscopy Attached is [facility], however can obtain a referral from PCP as well Monitor blood pressures Take caution while standing, rising, or moving Change positions slowly taking a break between each position change If you standing feel dizzy sit back down and take a break Encouraged to continue with yearly vaccinations Return to the emergency department if he developed sudden shortness of breath, chest pain, nausea, vomiting, upset stomach or intractable diarrhea Return to the emergency department if you develop fever greater than 101.5 Follow-up with the primary care physician within 1-2 weeks Thank you for choosing [facility] for your healthcare needs Patient Instructions: Antibiotic Form, Amoxicillin/Clavulanate Potassium (By mouth), Urinary Tract Infection in Women (DC), Pain Management (DC), Kidney Infection (DC) Patient Language: Japanese Stand Alone Forms: General Discharge Information Follow-up/Referrals: Jarek,Shan Reis MD [Primary Care Provider] - 1 Week Michele Aburto MD [Physician] - Call for Appointment Discharge Medications: New amoxicillin-pot clavulanate 875-125 mg tablet 1 tablet PO Q12H Qty: 11 0RF Continued albuterol sulfate 2.5 mg /3 mL (0.083 %) solution for nebulization 2.5 mg inhalation Q6H PRN (Reason: shortness of breath or wheezing) Qty: 360 1RF amlodipine 10 mg Tablet 10 mg PO DAILY fluticasone propionate [Flonase Allergy Relief] 50 mcg/actuation Hunker,[employer] pension 1 spray INTRANASAL DAILY PRN (Reason: allergy symptoms) ipratropium bromide 0.02 % solution See Rx Instructions .ROUTE .COMPLEX Qty: 900 3RF Dose Instruction: USE 1 VIAL VIA NEBULIZER FOUR TIMES DAILY NEEDED Rx Instructions: USE 1 VIAL VIA NEBULIZER FOUR TIMES DAILY NEEDED Spiriva Respimat 2.5 mcg/actuation mist See Rx Instructions .ROUTE .COMPLEX Qty: 12 3RF Dose Instruction: INHALE 2 PUFFS EVERY MORNING Rx Instructions: INHALE 2 PUFFS EVERY MORNING albuterol sulfate 90 mcg/actuation HFA aerosol inhaler See Rx Instructions .ROUTE .COMPLEX Qty: 54 3RF Dose Instruction: INHALE 1 TO 2 PUFFS EVERY 4 TO 6 HOURS NEEDED FOR SHORTNESS OF BREATH OR WHEEZING Rx Instructions: INHALE 1 TO 2 PUFFS EVERY 4 TO 6 HOURS NEEDED FOR SHORTNESS OF BREATH OR WHEEZING budesonide-formoterol [Symbicort] 160-4.5 mcg/actuation HFA aerosol inhaler 2 puff inhalation Q12H 90 Days Qty: 30.6 3RF Rx Instructions: rinse and spit Date of admission: 04/13/24 13:49 Primary Care Provider: Jarek,Shan Reis Admitting Provider: Yadi Perez Attending physician on admission: Yadi Perez Condition: Stable Hospitalist MIPS Heart Failure (Exclusion) Patient has history of Heart Transplant or Left Ventricular Assistive Device?: No IF YES, STOP HERE Heart Failure (Qualifier) Patient has current or prior documentation of LVEF less than or equal to 40%, or mod/servere depressed LVSF?: No IF NO, STOP HERE
== END 2024-04-15 13:30 | disposition home or self-care (01) | DRG 690 ==
LOC: ANHED 20:35 → ANH2MED 21:58
PROVIDERS: Admitting Provider Internal Medicine; Emergency Provider Emergency Medicine; PCP Internal Medicine; Visit Provider Student in an Organized Health Care Education/Training Program
DX: N12 Tubulo-interstitial nephritis, not specified as acute or chronic (principal); R65.10 Systemic inflammatory response syndrome (SIRS) of non-infectious origin without acute organ dysfunction; E87.1 Hypo-osmolality and hyponatremia; B96.20 Unspecified Escherichia coli [E. coli] as the cause of diseases classified elsewhere; G47.33 Obstructive sleep apnea (adult) (pediatric); I10 Essential (primary) hypertension; J44.9 Chronic obstructive pulmonary disease, unspecified; K59.00 Constipation, unspecified; Z87.891 Personal history of nicotine dependence; Z90.49 Acquired absence of other specified parts of digestive tract; Z20.822 Contact with and (suspected) exposure to COVID-19
CPT/HCPCS: 36415; 74018; 74176; 80048; 80053; 81001; 82274; 85025; 87040; 87086; 87186; 87637; 94640; 96361; 96365; 96372; 96375; 96376; 99285; A9270; G0378; J0696; J1171; J1650; J2405; J7030